=== PATIENT | female | born 1950 | race Caucasian/White ===

== ENCOUNTER 2024-08-03 09:51 | Outpatient (CLI) | payer MEDICARE, SELFPAY ==
--- NOTE | ~2024-08-03 | CT_ITS ---
EXAMINATION: CT sinus wo con DATE: 08/03/2024 10:04 INDICATION: Acute sinusitis sinusitis TECHNIQUE: Computed tomography (CT) of the paranasal sinuses was performed without intravenous contra st. The dose-length product was 409.21 mGy-cm. Automated exposure control and iterative reconstructio n technique were employed. COMPARISON: None FINDINGS: There is no significant mucosal thickening. No air-fluid levels. No mucoperiosteal reaction . There are surgical changes of the ostiomeatal units bilaterally. Rightward nasal septal deviation. Mastoids are pneumatized. IMPRESSION: 1. No significant sinus disease. Reviewed, dictated and finalized at location B.
== END 2024-08-03 09:52 | disposition home or self-care (01) ==
PROVIDERS: PCP Internal Medicine; Visit Provider Otolaryngology
DX: J01.20 Acute ethmoidal sinusitis, unspecified (principal); H05.011 Cellulitis of right orbit
CPT/HCPCS: 70486

== ENCOUNTER 2024-08-19 13:51 | Outpatient (CLI) | payer MEDICARE, SELFPAY ==
--- NOTE | 2024-08-19 14:15 | NEURO_ITS ---
Impression: # Complains of right hand weakness. ? 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 ? # Mildly abnormal Needle/Needle/EMG; Generally decreased strength. ? # Clinical correlation recommended. ?Nerve Conduction Studies Anti Sensory Summary Table ?Stim Site NR Peak (ms) P-T Amp (?V) Site1 Site2 Delta-P (ms) Dist (cm) Eladio (m/s) Right Median Anti Sensory (2-3nd Digit) Wrist ? 3.9 22.9 Wrist 2-3nd Digit 3.9 14.0 36 Wrist ? 4.3 10.4 Wrist 2-3nd Digit 3.9 14.0 36 Right Radial Anti Sensory (Base 1st Digit) Wrist ? 1.8 17.1 Wrist Base 1st Digit 1.8 0.0 Right Ulnar Anti Sensory (5th Digit)??? NO RESPONSE Wrist NR Wrist 5th Digit 14.0 Motor Summary Table ?Stim Site NR Onset (ms) O-P Amp (mV) Site1 Site2 Delta-0 (ms) Dist (cm) Eladio (m/s) Right Median Motor (Abd Poll Brev) Wrist ? 3.7 4.7 Elbow Wrist 4.7 26.0 55 Elbow ? 8.4 4.2 Right Ulnar Motor (Abd Dig Minimi) Wrist ? 3.3 0.8 A Elbow Wrist 8.2 26.0 32 A Elbow ? 11.5 1.0 B Elbow Wrist 5.8 19.0 33 B Elbow ? 9.1 0.7 F Wave Studies ?NR F-Lat (ms) L-R F-Lat (ms) Right Median (Mrkrs) (Abd Poll Brev) ? 29.24 Right Ulnar (Mrkrs) (Abd Dig Min) ? 32.87 EMG ?Side Muscle Nerve Root Ins Act Fibs Amp Dur Recrt Comment Right 1stDorInt Ulnar C8-T1 Nml Nml Decr >12ms Nml Right Ext Indicis Radial (Post Int) C7-8 Nml Nml Nml Nml Nml Right Ext Digitorum Radial (Post Int) C7-8 Nml Nml Nml Nml Nml Right BrachioRad Radial C5-6 Nml Nml Nml Nml +1 Right PronatorTeres Median C6-7 Nml Nml Nml Nml Nml Right Abd Poll Brev Median C8-T1 Nml Nml Nml Nml Nml Right ABD Dig Min Ulnar C8-T1 Nml Nml Decr >12ms Nml Right FlexPolLong Median (Ant Int) C7-8 Nml Nml Nml Nml Nml Right Abd Poll Long Radial (Post Int) C7-8 Nml Nml Nml Nml Nml Right Biceps Musculocut C5-6 Nml Nml Nml Nml +1 Right Triceps Radial C6-7-8 Nml Nml Nml Nml +1 Right Deltoid Axillary C5-6 Nml Nml Nml Nml +1 MTDD
--- OUTSIDE RECORDS SUMMARY | 2024-08-19 14:51 | XMS_ITS | Encounter Summary ---
Author Organization [facility] Address [address] [place] [address] Care Team Providers Care Transfusion Nurse Name Role Phone Adam Wiggins MD Primary Care Provider Reason for Visit * Reason Onset Date Comments Medication Refill 05/01/2011 Encounter Details Date Type Department Care Team (Late st Contact Info) Description 05/01/2011 Refill Central Business Office [address] [place] [address] Mychart, Generic Provider Social History Tobacco Use Types Packs/Day Years Used Date Smoking Tobacco: Never Smokeless Tobacco: Never Alcohol Use Standard Drinks/Week Comments Yes 0 (1 standard drink = 0.6 oz pur e alcohol) Comments No Sex and Gender Information Value Date Recorded Sex Assigned at Not on file 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 Wiggins, when I saw you we agreed I would go to Cymbalta 30 mg. and you gave me samples. However, the pharmacy still has a dose of 60 mg. Could you please order me the 30 mg. tablets? 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
--- OUTSIDE RECORDS SUMMARY | 2024-08-19 14:51 | XMS_ITS | Encounter Summary ---
Author Organization [facility] [employer] Care Team Providers Care Implementation Lead Name Role Phone Adam Wiggins MD Primary Care Provider [phone] David Henriquez MD Unavailable Stas Malin MD Unavailable [phone] Encounter Details Date Type Department Care Team (Latest Contact Info) Description 08/18/2024 Travel Social History Tobacco Use Types Packs/Day Years Used Date Smoking Tobacco: Never Smokeless Tobacco: Never Alcohol Use Standard Drinks/Week Comments Yes 4 (1 standard drink = 0.6 oz pur e alcohol) one glass daily Sexually Active Control Partners Comments Yes Male Comments No Sex and Gender Information Value Date Recorded Sex Assigned at Not on file Legal Sex Female 7:47 PM CDT Gender Identity Not on file Sexual Orientation Not on file documented as of this encounter Plan of Treatment Upcoming Encounters Date Type Department Care Team (Late st Contact Info) Description 08/20/2024 1:15 PM CDT Physical Therapy [facility] at [address] [place] [address] Cristal Hunt PAC [address] [place] [address] [place] [address] Lin Fuller, PT [place] 09/08/2024 9:15 AM CDT Physical [facility] at [address], [address] [place] [address] Cristal Hunt PAC [address] [facility] [place] [address] Lin Fuller, PT [place] Discharge Disposition: Discharged to home or Selfcare 09/10/2024 10:00 AM CDT [facility] [address], [address] [place] [address] Cristal Hunt PAC [address] [facility] [place] [address] Lin Fuller, PT [place] 09/22/2024 1:30 PM CDT [facility] at [address], [address] [place] [address] Cristal Hunt PAC [address] [facility] [place] [address] Lin Fuller, PT [place] 10/01/2024 2:00 PM CDT [facility] at [address], [address] [place] [address] Cristal Hunt PAC [address] [facility] [place] [address] Lin Fuller, PT [place] 10/06/2024 2:15 PM CDT [facility] at [address], [place] [address] [place] [address] Cristal Hunt PAC [address] [facility] [place] [address] Lin Fuller, PT [place] documented as of this encounter Visit Diagnoses Not on filedocumented in this encounter Care Teams Implementation Lead Relationship Specialty Start Date End Date Adam Wiggins MD [address] [place] [address] PCP - General 06/08/15 David Henriquez MD #[address] [address] Consulting Physician Colon and Rectal Surgery 10/09/23 Stas Malin MD [address] [place] [address] Consulting Physician Medical Oncology 06/05/23 documented as of this encounter
--- OUTSIDE RECORDS SUMMARY | 2024-08-19 14:51 | XMS_ITS | Encounter Summary ---
Author Organization [facility] Address [address] [place] [address] [place] [address] Phone Care Team Providers Care Oracle Soa Developer Name Role Phone Adam Wiggins MD Primary Care Provider [phone] David Henriquez MD Unavailable Stas Malin MD Unavailable [phone] Reason for Visit * PT/OT/ST (Routine) - Authorized Specialty Diagnoses / Procedures Referred By Irais calderon Referred To Contact Physical Therapy Diagnoses Trochanteric bursitis of right hip 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 Cristal Hunt, [address] [place] [address] Phone: tel: fax: [facility] at [facility] [address] [facility], [place] [address] [address] Phone: tel: fax: Referral ID Status Reason Start Date Expiration Date V isits Requested Visits Authorized [id number] Authorized 06/16/2024 50 50 Encounter Details Date Type Department Care Team (Latest Contact Info) Description 08/18/2024 1:30 PM CDT Physical Therapy [facility] at [facility] [address], [place] [address] [address] Cristal Hunt, PAC [address] [facility] [place] [address] Noris Fuller, PT [place] Trochanteric bursitis of right hip (Primary Dx); Weakness; Abnormal gait Discharge Disposition: Discharged to home or Selfcare Social History Tobacco Use Types Packs/Day Years [...] on file documented as of this encounter Miscellaneous Notes * Plan of Care - Noris Fuller, PT - 08/18/2024 1:30 PM CDT Physical Therapy VisitReevaluation - Electronically signed by: NORIS FULLER, PT August 18, 2024 Subjective SUBJECTIVE: Patient reports that overall she did pretty good this past week when she did not come in. She had some discomfort but did not start having pain again until yesterday. Reports that she does notice sheis walking better but still limps as she fatigues. States she would like to continue to do more therapy as she is going on a trip in September and will have to do a lot of walking and on uneven ground anddoes not feel comfortable with that . yet. OBJECTIVE Observation: Functional Outcomes/Other Observations: Lower Extremity Functional Scale Watkins: 0- Extreme difficulty or Unable to perform 1- Quite a bit of difficulty 2- Moderate difficulty 3- A little bit of difficulty 4- No difficulty A. Any of your usual work, household, or school activities Score: 3 B. Your usual hobbies, recreational, or sporting activities Score: 3 C. Getting in or out of the tub Score: 4 D. Walking between rooms Score: 4 E. Putting on your shoes or socks Score: 4 F. Squatting Score: 2 G. Lifting an object, like a bag of groceries from the floor Score: 3 H. Performing light activities around your home Score: 3 I. Performing heavy activities around your home Score: 0 J. Getting into or out of a car Score: 3 K. Walking 2 blocks Score: 2 L. Walking a mile Score: 0 M. Going up or down 10 stairs (about 1 flight) Score: 2 N. Standing for 1 hour Score: 0 O. Sitting for 1 hour Score: 4 P. Running on even ground Score: 0 Q. Running on uneven ground Score: 0 R. Making sharp turns while running fast Score: 0 S. Hopping Score: 0 T. Rolling over in bed Score: 3 Total Score: 40/80 Interpretation of scores: The lower the score the greater the disability. The minimal detectable change is 9 scale points. The minimally clinically important difference is 9 scale points. Percent of maximal function = (LEFS score) / 80 * 100. Gait: Patient ambulates with decreased step length and decreased hip extension. She is able wto ambulate with minimal trunk lean, however as she fatigues, she does increase her compensation Hip/Knee: Strength: All Strength measurements out of 5 unless otherwise noted. Hip Extension: Left: 4 Right: 4 Hip Abduction: Left: 4- Right: 3+ Knee Flexion: Left: 5 Right: 5 Knee Extension: Left: 5 Right: 4+ TREATMENT: Refer to [facility] Rehab Therapy flowsheet for minutes. Home Exercises distributed via handout. PeriGen information: [id number] Area being treated: glut minimus Number of sites: 2 Patient position: sidelying Needle size and number: .[id number] Patient response or change in symptom behavior: ltr and decreased pain Any adverse response: None verbalized by patient or noted on observation Area being treated: piriformis Number of sites: 1 Patient position: side lying Needle size and number: .2x50mm Patient response or change in symptom behavior: ltr Any adverse response: none noted Area being treated: TFL Number of sites: 1 Patient position: side lying Needle size and number: .[id number] Patient response or change in symptom behavior: strong ltr and decreased pain Any adverse response: achy following treatment: none Patient was seen for re-assessment this date. Objective measures were taken and reviewed with patient. 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 Therapeutic exercies: Hamstring and hip flexor stretch x 3 min bilaterally Single limb wall pilates Sit to stands with one leg in front of the other to activate unilateral gluts x 10 reps bilaterally Neuro reeducation: HELD this date Marching shoulder extension x 10 reps 3x3 with black tubing Semi tandem palloff press x 10 reps each foot and each direction with black tubing and cueing Rocker board ap and ml x 3 min each Wall pilates single limb bridge x 10 reps bilaterally Interventions provided this session: manual therapy, neuro reeducation Therapist provided Education and Skilled therapy by identifying substitutions during exercises withcorrection of form as well as identifying and releasing of soft tissue restrictions. . ASSESSMENT: Reporting Period: 06/30/2024 to 08/18/2024 Kellee Cerna is a 74 y.o. patient who is presenting to Physical Therapy for reassessment today's date - 08/18/2024: Improvements noted since initiating this episode of care include: decreased pain with walking and sleeping, improved strength in her hips, improved gait pattern and tolerance and overall improved activity tolerance. She continues to have weakness in her gluts and core which as she fatigues continues to lead to pain and gait deviations. 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 Deficits noted include impairments of decreased strength, increased pain, postural faults, abnormalmuscle tone and gait deviations which contribute to the following areas of functional restriction or limitation: difficulty going up and down steps, walking on even ground for sustained distances anduneven ground for short distances, getting in and out of a car and doing more challenging householdchores. Rehab potential for meeting the goals listed below is good. Preferred Language: [place] See goals for specific status and refer to objective data from today's date and initial evaluation for comparative measures. All charges entered today are appropriate and separate from each other. PLAN Goals to be achieved by discharge. Patient will demonstrate the followin. Patient will be independent with a home program for bilateral hip strengthening. -MET 07/15/24 kb 2. Gluteus medius strength will be 4+ on the left and 4- on the right for less compensating Trendelenburg gait pattern.PROGRESS08/18/24 DCF 3. Patient will ascend and descend a flight of stairs with one hand railing with reciprocal patternwithout limping. 4. Pain in her right trochanteric area of right hip will generally be rated as 3/10 or less when rising from a chair to beginning ambulation. MET 08/17/24 DCF 5. Patient will score 49/80 or higher on the LE Functional Scale patient- reported outcomes measure.PROGRESS 08/18/24 DCF This patient will likely be seen 2x/week for a total of 20 visits from the date of initial evaluation Precautions: 02/19/24 right THR anterior approach, no longer has any precautions. documented in this encounter Plan of Treatment Upcoming Encounters Date Type Department Care Team (Late st Contact Info) Description 08/20/2024 1:15 PM CDT Physical Therapy [facility] at [facility] [address] [facility], [address] [place] [address] Cristal Hunt PAC [address] [facility] [place] [address] Noris Fuller, PT [place] 09/08/2024 9:15 AM CDT Physical Therapy [facility] at [facility] [address], [address] [place] [address] Cristal Hunt PAC [address] [facility] [place] [address] Noris Fuller, PT [place] Discharge Disposition: Discharged to home or Selfcare 09/10/2024 10:00 AM CDT Physical Therapy [facility] at [facility] [address] [facility], [address] [place] [address] Cristal Hunt PAC [address] [facility] [place] [address] Noris Fuller, PT [place] 09/22/2024 1:30 PM CDT Physical Therapy [facility] at [facility] [address], [address] [place] [address] Cristal Hunt, PAC [address] [facility] [place] [address] Noris Fuller, PT [place] 10/01/2024 2:00 PM CDT Physical Therapy [facility] at [facility] [address], [address] [place] [address] Cristal Hunt PAC [address] [facility] [address] Noris Fuller, PT [place] 10/06/2024 2:15 PM CDT Physical Therapy [facility] at [facility] [address] [facility], [address] [place] [address] Cristal Hunt PAC [address] [facility] [place] [address] Noris Fuller, PT [place] documented as of this encounter Visit Diagnoses Diagnosis Trochanteric bursitis of right hip- Primary Enthesopathy of hip region Weakness Other malaise and fatigue Abnormal gait Abnormality of gait documented in this encounter Care Teams Oracle Soa Developer Relationship Specialty Start Date End Date Adam Wiggins MD [address] [place] [address] PCP - General 06/08/15 David Henriquez MD #2 [facility] [address] [place] [address] Consulting Physician Colon and Rectal Surgery 10/09/23 Stas Malin MD [address] [place] [address] Consulting Physician Medical Oncology 06/05/23 documented as of this encounter
--- OUTSIDE RECORDS SUMMARY | 2024-08-19 14:51 | XMS_ITS | Continuity of Care Document ---
Author Organization [facility] Address [address] [place] [address] [address] [place] [address] Phone Care Team Providers Care Ironworker Machine Operator Name Role Phone Duane BENAVIDEZ, Deni Unavailable Unavaila ble Procedures Procedure Date POSTOP FOLLOW-UP VISIT CATARACT SURG W/IOL, 1 STAGE OFFICE/OUTPATIENT VISIT, [facility] OPHTHALMIC BIOMETRY OPHTHALMIC BIOMETRY Advance Directives Directive Yes / No Effective Date File Name No Information Encounters Encounter Description Practice Location Reason(s) For Visit Diagnoses Date Provider Providers Copied on Encounter Ophthalmology [facility], [address] [place] [address], [id number], tel:[phone] Oph Consult [facility] No Information 9 Joaoishtanna Deni. [address], [address], [place], [place], [id number], [place]. tel:[phone] Referring Provider: [facility], [address] [place] [address], [id number], tel:[phone] [facility] No Information 9 Joaoishnasyane Deni. [address], [address], [place], [place], [id number], [place]. tel:[phone] Referring Provider: Deni adamson, [address], [place], [address] . tel:[phone] OFFICE/OUTPAT IENT VISIT, [facility], [address], [place], [place], [id number], [place] tel:[phone] Oph Consult IZZY Rosenthal No Information 9 Duane Lozanohil. [address] [facility] [address] , [address], [place], [place], [id number], [place]. tel:[phone] Referring Provider: Hieu Darnell, [address] [facility] [address], [place], [address]. tel:[phone] Family History Family Member Type Diagnosis Age At Onset No Information Payers Payer name Insurance type Covered green party ID Authoriza tion(s) No Information Social History Type Description Quantity Date Captured Comments Sex Female Smoking Status No Information Chief Complaint And Reason For Visit No Information Reason For Referral Reason For Referral No Information History Of Present Illness Encounter Date Complaint History Of Prese nt Illness No Information Functional Status Date Functional Assessmen t No Information Instructions Date Instruction Additional Infor mation No Information Assessments Type Assessment Date No Information Patient Care Teams Name Effective Dates (start - stop) Status Members No Information
--- OUTSIDE RECORDS SUMMARY | 2024-08-19 14:51 | XMS_ITS | Encounter Summary ---
Author Organization [facility] Address [address] [place] [address] [place] [address] Phone Care Team Providers Care Tool Room Supervisor Name Role Phone Adam Wiggins MD Primary Care Provider [phone] David Henriquez MD Unavailable Stas Malin MD Unavailable [phone] Encounter Details Date Type Department Care Team (Late st Contact Info) Description 08/19/2024 Plan of Care [facility] [address], [address] [place] [address] Social History Tobacco Use Types Packs/Day Years [...] Description 08/20/2024 1:15 PM CDT Physical [facility] [address], [address] [place] [address] MarileeCristal melendez PAC [address] [facility] [place] [address] Lin Fuller, PT [place] 09/08/2024 9:15 AM CDT Physical [facility] [address] [facility], [place] [address] [place] [address] Cristal Hunt PAC [address] [facility] [place] [address] Lin Fuller, PT [place] Discharge Disposition: Discharged to home or Selfcare 09/10/2024 10:00 AM CDT [facility] [address], [place] [address] [place] [address] Cristal Hunt PAC [address] [facility] [place] [address] Lin Fuller, PT [place] 09/22/2024 1:30 PM CDT [facility] [address], [place] [address] [place] [address] Cristal Hunt PAC [address] [facility] [place] [address] Lin Fuller, PT [place] 10/01/2024 2:00 PM CDT [facility] [address], [address] [place] [address] Cristal Hunt PAC [address] [facility] [place] [address] Lin Fuller, PT [place] 10/06/2024 2:15 PM CDT [facility] [place] [address], [address] [place] [address] Cristal Hunt, PAC [address] [facility] [place] [address] Lin Fuller, PT [place] documented as of this encounter Visit Diagnoses Not on filedocumented in this encounter Care Teams Tool Room Supervisor Relationship Specialty Start Date End Date Adam Wiggins MD [address] [place] [address] PCP - General 06/08/15 David Henriquez MD #2 [facility] [address] [place] [address] Consulting Physician Colon and Rectal Surgery 10/09/23 Stas Malin MD [address] [place] [address] Consulting Physician Medical Oncology 06/05/23 documented as of this encounter
--- OUTSIDE RECORDS SUMMARY | 2024-08-19 14:52 | XMS_ITS | Clinical Summary ---
Author Organization [facility] Address [address], [place] [address] [place] [address] Phone Care Team Providers Care Assistant Technician Name Role Phone Adam Wiggins MD Primary Care Provider David Henriquez MD Unavailable Stas Malin MD Unavailable [phone] Allergies Active Allergy Reactions Criticality Noted Date Comments Nebivolol Diarrhea 01/16/2019 Nickel Rash Medium 08/11/2013 RASH --DR. LE IS AWARE RASH --DR. LE IS AWARE RASH --DR. LE IS AWARE RASH --DR. LE IS AWARE Penicillins Hives Medium 02/09/2019 Medications amLODIPine (NORVASC) 2.5 MG Tablet TAKE 1 TABLET (2.5 MG) BY MOUTH DAILY AT BEDTIME. 3 01/16/2019 Active DULoxetine (CYMBALTA) [address] Particles Take 60 mg by mouth daily. 10/01/2017 Active fluticasone (FLONASE) 50 MCG/ACT Suspension 12/10/2017 Active gabapentin (NEURONTIN) 300 MG Capsule TAKE 1 CAPSULE (300 MG) BY MOUTH DAILY AT BEDTIME TOTAL 1500 MG, IE 1200 +300 MG. 3 11/29/2018 Active glycopyrrolate (ROBINUL) 2 MG Tablet Take by mouth. 03/18/2017 Active Mirabegron ER 50 MG TABLET SR 24 HR 10/01/2017 Active montelukast (SINGULAIR) 10 MG Tablet Take 10 mg by mouth daily. 9 11/08/2018 Active Olmesartan Medoxomil 40 MG Tablet Take 40 mg by mouth daily. 3 12/28/2018 Active Probiotic Product (ACIDOPHILUS/GO AT MILK) Capsule Take 1 Tablet by mouth daily. Active temazepam (RESTORIL) 30 MG Capsule nightly as needed. 1 12/05/2018 Active traMADol (ULTRAM) 50 MG Tablet TAKE 1 TABLET (50 MG) BY MOUTH EVERY 6 HOURS NEEDED FOR PAIN. 2 12/04/2018 Active Multiple Vitamins-Minera ls (EYE-VITES) Tablet Take 1 Tab by mouth daily. Active buPROPion SR (WELLBUTRIN SR) 100 MG TABLET SR 12 HR Take 100 mg by mouth 2 times daily. Active SYNTHROID 137 MCG Tablet 05/04/2019 Active famotidine (PEPCID) 20 MG Tablet TAKE 1 TABLET BY MOUTH TWICE A DAY 07/06/2021 Active pravastatin (PRAVACHOL) 10 MG Tablet TAKE 1 TABLET BY MOUTH EVERYDAY AT BEDTIME 07/06/2021 Active VITAMIN D PO Take by mouth three times a week. Active Ferrous Sulfate (Iron) 325 (65 Fe) MG Tablet Take 1 tablet by mouth once daily 30 Tablet 1 07/05/2022 Active cyclobenzaprine (FLEXERIL) 10 MG Tablet Take 10 mg by mouth 3 times daily. Active HYDROcodone-claribel taminophen (NORCO) 5-325 MG Tablet Take 1 Tablet by mouth. 08/19/2023 Active omeprazole (PriLOSEC) 40 MG CAPSULE DELAYED RELEASE TAKE 1 CAPSULE EVERY DAY (SUBSTITUTED FOR PRILOSEC) 01/27/2024 Active ondansetron (ZOFRAN) 8 MG Tablet Take 8 mg by mouth. 02/20/2024 Active gabapentin (NEURONTIN) 400 MG Capsule take 1 capsule by mouth 4 times daily Active aspirin EC (ECOTRIN) 325 MG Tablet Delayed Response Take 325 mg by mouth. 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 022 Essential hypertension 09/04/2021 Acute kidney injury 09/04/2021 Depression, major, recurrent, mild 02/20/2019 Encounters Date Type Department Care Team Description 08/19/2024 Plan of Care Documentation [facility] [address], [place] [address] [place] [address] 08/18/2024 1:30 PM CDT Physical Therapy [facility] [address] [facility], [place] [address] [place] [address] Cristal Hunt PAC Fisher, Lin C, PT Trochanteric bursitis of right hip (Primary Dx); Weakness; Abnormal gait Discharge Disposition: Discharged to home or Selfcare 08/18/2024 Travel 08/13/2024 Telephone [facility] [address] [facility], [address] [place] [address] Amberly Parish, PT Appointment (Called to cancel PT today) 08/06/2024 10:45 AM CDT Physical Therapy [facility] [address] [facility], [address] [place] [address] Cristal Hunt PAC Fisher, Debra C, PT Discharge Disposition: Discharged to home or Selfcare 08/06/2024 Travel 07/31/2024 1:15 PM CDT [facility] [address], [place] [address] [place] [address] Cristal Hunt PAC Fisher, Debra C, PT Discharge Disposition: Discharged to home or Selfcare 07/29/2024 10:45 AM CDT Physical [facility] [address], [place] [address] [place] [address] Cristal Hunt PAC Fisher, Debra C, PT Discharge Disposition: Discharged to home or Selfcare 07/29/2024 Travel 07/23/2024 10:45 AM CDT Physical Therapy [facility] [address], [place] [address] [phone] Cristal Hunt PAC Fisher, Debra C, PT Discharge Disposition: Discharged to home or Selfcare 07/20/2024 10:45 AM CDT Physical Therapy [facility] [address], [place] [address] [address] Cristal Hunt PAC Fisher, Debra C, PT Discharge Disposition: Discharged to home or Selfcare 07/20/2024 Travel 07/15/2024 9:15 AM CDT Physical Therapy [facility] [address], [place] [address] [phone] Cristal Hunt PAC Bogowith, Kelly A, PT Trochanteric bursitis of right hip (Primary Dx); 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 Discharge Disposition: Discharged to home or Selfcare 07/13/2024 Telephone [facility] [address] [facility], [place] [address] [phone] Amberly Parish, PT Appointment (Called to cancel PT today) 07/12/2024 11:29 AM CDT - 07/12/2024 1:34 PM CDT [facility] [address] [place] [address] Siobhan Jimenez MD Gastroenteritis Discharge Disposition: Discharged to home or Selfcare 07/12/2024 10:40 AM CDT Urgent Care Visit [facility] [place] [address] [place] [address] Federico Lu APRN, [employer] Lower abdominal pain (Primary Dx) Discharge Disposition: Discharged to home or Selfcare 07/12/2024 Travel 07/08/2024 2:45 PM CDT Physical [facility] [address], [address] [place] [address] Cristal Hunt PAC Bogowith, Kelly A, PT Trochanteric bursitis of right hip (Primary Dx); 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 Discharge Disposition: Discharged to home or Selfcare 07/08/2024 Travel 07/03/2024 2:30 PM CDT Physical Therapy [facility] [address], [address] [address] [place] [address] Cristal Hunt PAC Bogowith, Kelly A, PT Discharge Disposition: Discharged to home or Selfcare 06/30/2024 9:15 AM CDT Physical Therapy [facility] [address], [address] [place] [address] Cristal Hunt PAC Bogowith, Kelly A, PT Trochanteric bursitis of right hip; 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 Discharge Disposition: Discharged to home or Selfcare 06/30/2024 Plan of Care Documentation [facility] [address], [address] [place] [address] 06/30/2024 Travel 06/16/2024 Transcribe Orders [facility] [address] [place] [phone] Cristal Hunt PAC Trochanteric bursitis of right hip (Primary Dx); 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 from Last 3 Months Immunizations Immunization Administration Dates Next Due Influenza, High-dose, Quadrivalent 12/14/2022,,12/14/2020 Influenza, high-dose, trivalent, PF 12/18/2023 Family History Medical History Relation Name Comments No Known Problems Daughter 1 Arthritis Daughter 2 Polycystic Ovarian Syndrome Daughter 3 Cancer Father colon and laryn x Colon Cancer Father Diabetes Father Heart Attack Father Heart Disease Father Hypertension Father No Known Problems Maternal Grandfather Cancer Maternal Grandmother Diabetes Maternal Grandmother Uterine Cancer Maternal Grandmother Coronary Artery Disease Mother Heart Disease Mother Hypertension Mother No Known Problems Paternal Grandfather No Known Problems Paternal Grandmother Relation Name Status Comments Daughter 1 Alive Daughter 2 Alive Daughter 3 Alive Father Maternal Grandfather Maternal Grandmother Mother Paternal Grandfather Paternal Grandmother Social History Tobacco Use Types Packs/Day Years Used Date Smoking Tobacco: Never Smokeless Tobacco: Never Tobacco Cessation:Counseling Given: Not Answered Alcohol Use Standard Drinks/Week Comments Yes 4 (1 standard drink = 0.6 oz pur e alcohol) one glass daily Sexually Active Control Partners Comments Yes Male Comments No Sex and Gender Information Value Date Recorded Sex Assigned at Not on file Legal Sex Female 7:47 PM CDT Gender Identity Not on file Sexual Orientation Not on file Last Filed Vital Signs Vital Sign Reading Time Taken Comments Blood Pressure 144/89 07/12/2024 1:15 PM CDT Pulse 72 07/12/2024 1:15 PM CDT Temperature 36.5 C (97.7 F) 07/12/2024 11:34 AM CDT Respiratory Rate 16 07/12/2024 1:15 PM CDT Oxygen Saturation 99% 07/12/2024 1:15 PM CDT Inhaled Oxygen Concentration - - Weight 82.8 kg (182 lb 8.7 oz) 07/12/2024 11:34 AM CDT Height 149.9 cm (4' 11 ) 07/12/2024 11:34 AM CDT Body Mass Index 36.87 07/12/2024 11:34 AM CDT Plan of Treatment Upcoming Encounters Date Type Department Care Team (Late st Contact Info) Description 08/20/2024 1:15 PM CDT [facility] [address], [place] [address] [place] [phone] Cristal Hunt PAC [address] [place] [address] [place] [address] Lin Fuller PT [place] 09/08/2024 9:15 AM CDT Physical Therapy [facility] [address], [place] [address] [place] [address] Cristal Hunt PAC [address] [place] [address] Lin Fuller, PT [place] Discharge Disposition: Discharged to home or Selfcare 09/10/2024 10:00 AM CDT Physical Therapy [facility] [address] [facility], [place] [address] [place] [address] Cristal Hunt PAC [address] [place] [address] [place] [address] Lin Fuller, PT [place] 09/22/2024 1:30 PM CDT Physical Therapy [facility] [address] [facility], [address] [place] [address] Cristal Hunt PAC [address] [place] [address] iLn Fuller, PT [place] 10/01/2024 2:00 PM CDT Physical Therapy [facility] [address] [facility], [place] [address] [place] [address] Cristal Hunt PAC [address] [place] [address] Lin Fuller, PT [place] 10/06/2024 2:15 PM CDT Physical Therapy [facility] [address] [facility], [place] [address] [place] [address] Cristal Hunt PAC [address] [place] [address] Lin Fuller, PT [place] Health Maintenance Due Date Last Done Comments Hepatitis C Virus (HCV) Screening 1950 Zoster Immunization (3 of 3) 02/11/2020 12/17/2019, 04/03/2012 DEXA Bone Density 02/21/2020 02/20/2018, , 06/03/2015, Additional history exists SARS-COV-2 Immunization ( season) 2024 12/23/2023, 12/22/2023, 01/10/2023, Additional history exists Pneumococcal Immunization (50+ years) Completed 12/26/2018, 06/14/2015, 03/03/2014, Additional history exists Pneumococcal Immunization Combined Discontinued 12/26/2018, 06/14/2015, 03/03/2014, Additional history exists DTaP/Tdap/Td Immunization Discontinued 05/21/2022, 10/2010 TdaP Immunization Completed 05/21/2022, 03/28/2011 Respiratory Syncytial Virus (RSV) Immunization (Adult) Completed 01/01/2023, 12/17/2022 Mammogram Discontinued 01/09/2023, 05/24, 06/15/2019, Additional history exists Influenza Immunization Completed , 12/14/2022, 12/12/2021, Additional history exists Colonoscopy High Risk Discontinued 05/13/2024 , 03/16/2019, 04/24/2011 Colonoscopy Discontinued 05/13/2024, 02/21, 04/24/2011 Colorectal Cancer Screening Discontinued Cologuard Discontinued Hepatitis B Immunization Aged Out No longer eligible based on patient's age to complete this topic Immunochemical Fecal Occult Blood Discontinued Meningococcal Immunization (ACWY) Aged Out No longer eligible based on patient's age to complete this topic Rotavirus Immunization Aged Out No lo nger eligible based on patient's age to complete this topic Procedures Procedure Name Priority Date/Time Associated Diagnosis Comments CT ABDOMEN PELVIS W/O CONTRAST Stat with Interpretation 07/12/2024 12:32 PM CDT CBC WITH AUTO DIFFERENTIAL STAT 07/12/2024 11:55 AM CDT URINALYSIS REFLEX IF INDICATED BY ABNORMAL RESULTS STAT 07/12/2024 11:55 AM CDT CMP (COMPREHENSIVE METABOLIC PANEL) STAT 07/12/2024 11:55 AM CDT COMPLETE BLOOD COUNT (CBC) WITH DIFF STAT 07/12/2024 11:55 AM CDT [facility] SCREENING BILATERAL DIGITAL W CAD W LEYLA Routine 01/09/2023 10:21 AM CDT Visit for screening mammogram [facility] BONE DENSITOMETRY AXIAL SKELETON Routine 02/20/2018 3:21 PM CDT Menopause COLONOSCOPY Routine 04/24/2011 from Last 3 Months or Most Recently Relevant to Health Maintenance Results * CT ABDOMEN PELVIS W/O CONTRAST (07/12/2024 12:32 PM CDT) Anatomical Region Laterality Modality Abdomen N/A Computed Tomogra phy 07/12/2024 1:11 PM CDT Impressions 07/12/2024 1:13 PM CDT IMPRESSION: Examination is limited by motion artifact and streak artifact from a right hip arthroplasty. 1. Small hiatal hernia. Mild patulous distal esophagus. Recommend correlation with dysphagia and epigastric pain. Follow-up upper endoscopy may be performed for further evaluation if clinically indicated. 2. Partially distended gallbladder. Indeterminate haziness along the gallbladder is favored to be due to motion artifact. Inflammation is thought to be much less likely. Recommend correlation with right upper quadrant pain and tenderness on examination. Follow-up right upper quadrant ultrasound may be performed further evaluation if clinically indicated. 3. Additional findings as above. Narrative 07/12/2024 1:13 PM CDT EXAM DESCRIPTION: CT ABDOMEN PELVIS W/O CONTRAST REASON FOR STUDY: Mid abdominal pain, diarrhea x2 days. History of colitis. TECHNIQUE: CT scan of the abdomen and pelvis performed without intravenous and without oral contrast using helical scanning technique. Reconstructed coronal and sagittal MPR images reviewed. All images stored on PACS. Automated exposure control was used as a dose optimization technique for this examination. COMPARISON: 07/20/2013 FINDINGS: The sensitivity for detection of visceral lesions is diminished without the use of intravenous contrast. LOWER CHEST: No significant pulmonary abnormalities. No effusion. LIVER: The liver is normal in size. No definite liver lesion is seen. GALLBLADDER: The gallbladder is partially distended. Haziness along the gallbladder wall is favored to be due to motion artifact. No gross pericholecystic fluid to suggest acute cholecystitis. BILE DUCTS: No intrahepatic or extrahepatic ductal dilatation. SPLEEN: Normal size. No focal lesions. PANCREAS: Normal in size. No significant peripancreatic stranding or main ductal dilatation. ADRENALS: Normal. KIDNEYS/URINARY TRACT: The kidneys are normal in size. Prominent right renal pelvis without overt hydronephrosis. Mild perinephric stranding, likely represents scarring. No stone is seen. Left renal cyst is noted. The right pelvis is obscured by an arthroplasty. The urinary bladder appears to be partially distended without substantial thickening or stranding. GI: Evaluation bowel is limited by motion. Scattered diverticular seen without CT evidence of acute diverticulitis. A partially obscured appendix appears to be nondilated. Terminal ileum appears normal. Some pseudo feces is seen within the small bowel which appears nondilated and without evidence of enteritis or obstruction. A small hiatal hernia is seen. The distal esophagus is patulous. The stomach is largely decompressed. PERITONEUM: No free air. No ascites is seen. No organized drainable fluid collection. No mesenteric lymphadenopathy. No significant hernia. RETROPERITONEUM: No retroperitoneal or inguinal lymphadenopathy. REPRODUCTIVE: The uterus is absent. Ovaries appear to be present. VASCULATURE: No abdominal aortic aneurysm. MUSCULOSKELETAL: Right hip arthroplasty. Moderate lumbar degenerative disc disease. OTHER: No other abnormality. THIS IS AN ELECTRONICALLY VERIFIED FINAL REPORT 07/12/2024 1:11 PM - Electronically signed by Jimmy Perez M.D. AG: NINA Report ID: [id number] Reading Location: [id number] Procedure Note Jimmy Perez MD - 07/12/2024 EXAM DESCRIPTION: CT ABDOMEN PELVIS W/O CONTRAST REASON FOR STUDY: Mid abdominal pain, diarrhea x2 days. History of colitis. TECHNIQUE: CT scan of the abdomen and pelvis performed without intravenous and without oral contrast using helical scanning technique. Reconstructed coronal and sagittal MPR images reviewed. All images stored on PACS. Automated exposure control was used as a dose optimization technique for this examination. COMPARISON: 07/20/2013 FINDINGS: The sensitivity for detection of visceral lesions is diminished without the use of intravenous contrast. LOWER CHEST: No significant pulmonary abnormalities. No effusion. LIVER: The liver is normal in size. No definite liver lesion is seen. GALLBLADDER: The gallbladder is partially distended. Haziness along the gallbladder wall is favored to be due to motion artifact. No gross pericholecystic fluid to suggest acute cholecystitis. BILE DUCTS: No intrahepatic or extrahepatic ductal dilatation. SPLEEN: Normal size. No focal lesions. PANCREAS: Normal in size. No significant peripancreatic stranding or main ductal dilatation. ADRENALS: Normal. KIDNEYS/URINARY TRACT: The kidneys are normal in size. Prominent right renal pelvis without overt hydronephrosis. Mild perinephric stranding, likely represents scarring. No stone is seen. Left renal cyst is noted. The right pelvis is obscured by an arthroplasty. The urinary bladder appears to be partially distended without substantial thickening or stranding. GI: Evaluation bowel is limited by motion. Scattered diverticular seen without CT evidence of acute diverticulitis. A partially obscured appendix appears to be nondilated. Terminal ileum appears normal. Some pseudo feces is seen within the small bowel which appears nondilated and without evidence of enteritis or obstruction. A small hiatal hernia is seen. The distal esophagus is patulous. The stomach is largely decompressed. PERITONEUM: No free air. No ascites is seen. No organized drainable fluid collection. No mesenteric lymphadenopathy. No significant hernia. RETROPERITONEUM: No retroperitoneal or inguinal lymphadenopathy. REPRODUCTIVE: The uterus is absent. Ovaries appear to be present. VASCULATURE: No abdominal aortic aneurysm. MUSCULOSKELETAL: Right hip arthroplasty. Moderate lumbar degenerative disc disease. OTHER: No other abnormality. THIS IS AN ELECTRONICALLY VERIFIED FINAL REPORT 07/12/2024 1:11 PM - Electronically signed by Jimmy Perez M.D. AG: NINA Report ID: [id number] Reading Location: [id number] IMPRESSION: Examination is limited by motion artifact and streak artifact from a right hip arthroplasty. 1. Small hiatal hernia. Mild patulous distal esophagus. Recommend correlation with dysphagia and epigastric pain. Follow-up upper endoscopy may be performed for further evaluation if clinically indicated. 2. Partially distended gallbladder. Indeterminate haziness along the gallbladder is favored to be due to motion artifact. Inflammation is thought to be much less likely. Recommend correlation with right upper quadrant pain and tenderness on examination. Follow-up right upper quadrant ultrasound may be performed further evaluation if clinically indicated. 3. Additional findings as above. Siobhan Jimenez MD IMG CT ORDERABLES Final Resul t * URINALYSIS REFLEX IF INDICATED BY ABNORMAL RESULTS (07/12/2024 11:55 AM CDT) SPECIFIC GRAVITY 1.010 1.003 - 1.030 07/12/2024 12:24 PM CDT [facility] URINE PH 6.0 5.0 - 9.0 07/12/2024 12:24 PM CDT [facility] WBC ESTERASE Negative Negative 07/12/2024 12:24 PM CDT [facility] NITRITE Negative Negative 07/12/2024 12:24 PM CDT [facility] PROTEIN, RANDOM URINE Negative Negative 07/12/2024 12:24 PM CDT [facility] URINE GLUCOSE, QUAL Negative Negative 07/12/2024 12:24 PM CDT [facility] URINE KETONES Negative Negative 07/12/2024 12:24 PM CDT [facility] UROBILINOGEN Normal Normal mg/dL 07/12/2024 12:24 PM CDT [facility] URINE BLOOD Negative Negative mariano/ul 07/12/2024 12:24 PM CDT [facility] URINALYSIS COLOR Yellow 07/13/19 12:24 PM CDT [facility] URINALYSIS CLARITY Clear 07/12/2024 12:24 PM CDT [facility] Urine URINE SPECIMEN OBTAINED BY CLEAN CATCH PROCEDURE / Unknown Non-Phlebotomy Collection / Unknown 07/12/2024 11:55 AM CDT 07/12/2024 12:18 PM CDT us Siobhan Jimenez MD URINE ORDERABLES Final Result [facility] [place] [address] * CBC with Auto Differential (07/12/2024 11:55 AM CDT) WBC 9.76 4.00 - 12.00 10(3)/mcL 07/12/2024 12:21 PM CDT [facility] RBC 4.24 3.80 - 5.30 10(6)/mcL 07/12/2024 12:21 PM CDT [facility] HEMOGLOBIN (HGB) 12.4 12.0 - 15.8 g/dL 07/12/2024 12:21 PM CDT [facility] HEMATOCRIT (HCT) 37.7 36.0 - 47.0 % 07/12/2024 12:21 PM CDT [facility] MCV 88.9 82.0 - 96.0 fL 07/12/2024 12:21 PM CDT [facility] MCH 29.2 26.0 - 34.0 pg 07/12/2024 12:21 PM CDT [facility] MCHC 32.9 31.0 - 36.0 g/dL 07/12/2024 12:21 PM CDT [facility] PLATELET COUNT 369 140 - 440 10(3)/mcL 07/12/2024 12:21 PM CDT [facility] RDW 13.0 11.8 - 15.5 % 07/12/2024 12:21 PM CDT [facility] MPV 11.0 9.7 - 12.4 fL 07/12/2024 12:21 PM CDT [facility] NEUTROPHILS 66.9 47.0 - 73.0 % 07/12/2024 12:21 PM CDT [facility] LYMPHOCYTES 22.4 18.0 - 42.0 % 07/12/2024 12:21 PM CDT [facility] MONOCYTES 7.4 4.0 - 12.0 % 07/12/2024 12:21 PM CDT [facility] EOSINOPHILS 2.7 0.0 - 5.0 % 07/12/2024 12:21 PM CDT [facility] BASOPHILS 0.6 0.0 - 1.0 % 07/12/2024 12:21 PM CDT [facility] ABSOLUTE NEUTROPHILS 6.53 1.60 - 7.70 10(3)/mcL 07/12/2024 12:21 PM CDT [facility] ABSOLUTE LYMPHOCYTES 2.19 1.30 - 3.20 10(3)/mcL 07/12/2024 12:21 PM CDT [facility] ABSOLUTE MONOCYTES 0.72 0.20 - 1.00 10(3)/mcL 07/12/2024 12:21 PM CDT [facility] ABSOLUTE EOSINOPHIL 0.26 0.00 - 0.40 10(3)/mcL 07/12/2024 12:21 PM CDT [facility] ABSOLUTE BASOPHILS 0.06 0.00 - 0.10 10(3)/[facility] 07/12/2024 12:21 PM CDT [facility] NRBC PER 100 WBC 0 07/13/19 25 12:21 PM CDT [facility] Blood Venipuncture / Unknown 07/12/2024 11:55 AM CDT 07/12/2024 12:18 PM CDT us Siobhan Jimenez MD HEMATOLOGY ORDERABLES Final R esult [facility] [place] [address] * (ABNORMAL) Comprehensive Metabolic Panel (Cmp) [id number] (07/12/2024 11:55 AM CDT) SODIUM 134(L) 136 - 145 mmol/L 07/12/2024 12:48 PM CDT [facility] POTASSIUM 4.5 3.5 - 5.1 mmol/L 07/12/2024 12:48 PM CDT [facility] CHLORIDE 103 98 - 107 mmol/L 07/12/2024 12:48 PM CDT [facility] CO2, VENOUS 23 22 - 30 mmol/L 07/12/2024 12:48 PM CDT [facility] ANION GAP 12.5 <18.0 mmol/L 07/12/2024 12:48 PM CDT [facility] GLUCOSE 91 70 - 99 mg/dL 07/12/2024 12:48 PM CDT [facility] BUN 15 10 - 20 mg/dL 07/12/2024 12:48 PM CDT [facility] CREATININE, BLOOD 0.81 0.60 - 1.00 mg/dL 07/12/2024 12:48 PM CDT [facility] BUN/CREATININE RATIO 19 12 - 20 ratio 07/12/2024 12:48 PM CDT [facility] TOTAL PROTEIN 7.7 6.0 - 8.0 g/dL 07/12/2024 12:48 PM CDT [facility] ALBUMIN 4.4 3.5 - 5.0 g/dL 07/12/2024 12:48 PM CDT [facility] A/G RATIO 1.3 1.0 - 2.2 07/12/2024 12:48 PM CDT [facility] CALCIUM 9.6 8.7 - 10.5 mg/dL 07/12/2024 12:48 PM CDT [facility] T BILI 0.4 0.2 - 1.2 mg/dL 07/12/2024 12:48 PM CDT [facility] SGOT (AST) 31 <43 U/L 07/12/2024 12:48 PM CDT [facility] SGPT (ALT) 24 <56 U/L 07/12/2024 12:48 PM CDT [facility] ALKALINE PHOSPHATASE 83 40 - 150 U/L 07/12/2024 12:48 PM CDT [facility] GFR, ESTIMATED >60 >=60 07/12/2024 12:48 PM CDT [facility] Comment: Creatinine Clearance is the preferred criteria for selecting drug dose adjustments in renally impaired patients. The GFR is provided as additional pertinent clinical information. GFR is reported in mL/min/1.73 sq m. Calculation based on the Chronic Kidney Disease Epidemiology Collaboration (CKD- EPI) equation refit without adjustment for race. GFR, EST. >60 >=60 025 12:48 PM CDT [facility] GFR, EST. NONAFRICAN >60 >=60 07/12/2024 12:48 PM CDT [facility] Blood Venipuncture / Unknown 07/12/2024 11:55 AM CDT 07/12/2024 12:18 PM CDT us Siobhan Jimenez MD CHEMISTRY ORDERABLES Final Re sult [facility] [address] [place] [address] * ELENITA SCREENING BILATERAL DIGITAL W CAD W LEYLA (01/09/2023 10:21 AM CDT) Anatomical Region Laterality Modality breast Bilateral Mammography 01/09/2023 10:2 4 AM CDT Narrative 01/10/2023 12:18 PM CDT - ELENITA SCREENING BILATERAL DIGITAL W CAD W LEYLA BILATERAL DIGITAL SCREENING MAMMOGRAM 3D/2D WITH CAD WITH MEDIOLATERAL OBLIQUE CRANIOCAUDAL: 01/09/2023 The study was acquired using digital technology and interpreted from soft copy. Current study was also evaluated with ICAD version 7.2. 2D digital mammographic views, as well as 3D digital tomosynthesis were performed in the CC and MLO projections. CLINICAL: Routine screening. Patient has no complaints. No personal history of cancer. No family history of breast cancer. COMPARISONS: Comparison is made to exams dated: 06/15/2019, 02/20/2018, and 12/05/2016 [facility]. BREAST TISSUE:The tissue of both breasts is predominantly fatty. FINDINGS: No significant masses, calcifications, or other findings are seen in either breast. There has been no significant interval change. IMPRESSION: BI-RAD 1 NEGATIVE There is no mammographic evidence of malignancy. A 1 year screening mammogram is recommended. A letter will be sent to the patient with these results. The patient will be entered into a reminder system with a target due date of 1 year for her next screening exam. Electronically signed by: Yoselyn mata/penrad:01/09/2023 17:19:33 Hazardous Waste Management Specialist(s): RT Aundrea(R)(M), [facility] letter sent: Normal Exam Reading location: [facility] BI-RADS: 1 Negative Procedure Note Yoselyn Gordon MD - 01/10/2023 - ELENITA SCREENING BILATERAL DIGITAL W CAD W LEYLA BILATERAL DIGITAL SCREENING MAMMOGRAM 3D/2D WITH CAD WITH MEDIOLATERAL OBLIQUE CRANIOCAUDAL: 01/09/2023 The study was acquired using digital technology and interpreted from soft copy. Current study was also evaluated with WhoseView.ieD version 7.2. 2D digital mammographic views, as well as 3D digital tomosynthesis were performed in the CC and MLO projections. CLINICAL: Routine screening. Patient has no complaints. No personal history of cancer. No family history of breast cancer. COMPARISONS: Comparison is made to exams dated: 06/15/2019, 02/20/2018, and 12/05/2016 [facility]. BREAST TISSUE:The tissue of both breasts is predominantly fatty. FINDINGS: No significant masses, calcifications, or other findings are seen in either breast. There has been no significant interval change. IMPRESSION: BI-RAD 1 NEGATIVE There is no mammographic evidence of malignancy. A 1 year screening mammogram is recommended. A letter will be sent to the patient with these results. The patient will be entered into a reminder system with a target due date of 1 year for her next screening exam. Electronically signed by: Yoselyn mata/penrad:01/09/2023 17:19:33 Hazardous Waste Management Specialist(s): RT Aundrea(R)(M), [facility] letter sent: Normal Exam Reading location: [facility] BI-RADS: 1 Negative Adam Wiggins MD IMG MAMMO ORDERABLES Final Re sult * ELENITA BONE DENSITOMETRY AXIAL SKELETON (02/20/2018 3:21 PM CDT) Anatomical Region Laterality Modality BODY N/A Other 02/20/2018 4:06 PM CDT Impressions 02/20/2018 4:08 PM CDT IMPRESSION: Normal, noting low normal L1 through L4 lumbar spine with T-score -1.0 Bone mineral density: Normal (T-score above or = -1.0) Low bone mass (T-score between -1.0 and -2.5) replaces the previously used term osteopenia Osteoporosis (T-score = or below -2.5) Medical evaluation for secondary causes of low bone mineral density may be appropriate. FRAX is a World Health Organization validated fracture risk assessment tool that calculates a person's 10 year probability of a major osteoporosis related fracture and hip fracture. According to the National Osteoporosis Foundation guidelines, postmenopausal women and men age 50 or older with low bone mass and a 10 year probability of a major osteoporosis related fracture = or greater than 20% or a 10 year probability of a hip fracture = or greater than 3% should be considered for treatment. For further information, including treatment recommendations, please refer to the 2013 ISCD Official Positions (http://www.iscd.org) and the NOF's Clinician's Guide to Prevention and Treatment of Osteoporosis (http://www.nof.org/professionals/clinical-guidelines) Narrative 02/20/2018 4:08 PM CDT EXAM DESCRIPTION: [facility] BONE DENSITOMETRY AXIAL SKELETON REASON FOR STUDY: 67 y/o year old F with given history of screening. County Administrator/Model: Diurnal (S/N [id number]) CLINICAL INFORMATION: Current height: 60.0 inches Maximum height: Unspecified inches Weight: 165.0 pounds Risk factors: Family history (parent with a hip fracture), chronic glucocorticoids, and history of fracture as an adult COMPARISON: None available. FINDINGS: AP LUMBAR SPINE L1-L4: Total BMD is 1.071 g/cm2 T-score is -1.0 LEFT HIP: Total BMD is 1.015 g/cm2 T-score is 0.1 Femoral neck BMD is 0.924 g/cm2 T-score is -0.8 THIS IS AN ELECTRONICALLY VERIFIED FINAL REPORT 02/20/2018 4:06 PM - Electronically signed by Chandler HO: VIC Report ID: [id number] Reading Location: [place] [address] Procedure Note Chandler Quiroz MD - 02/20/2018 EXAM DESCRIPTION: ELENITA BONE DENSITOMETRY AXIAL SKELETON REASON FOR STUDY: 67 y/o year old F with given history of screening. County Administrator/Model: Diurnal (S/N [id number]) CLINICAL INFORMATION: Current height: 60.0 inches Maximum height: Unspecified inches Weight: 165.0 pounds Risk factors: Family history (parent with a hip fracture), chronic glucocorticoids, and history of fracture as an adult COMPARISON: None available. FINDINGS: AP LUMBAR SPINE L1-L4: Total BMD is 1.071 g/cm2 T-score is -1.0 LEFT HIP: Total BMD is 1.015 g/cm2 T-score is 0.1 Femoral neck BMD is 0.924 g/cm2 T-score is -0.8 THIS IS AN ELECTRONICALLY VERIFIED FINAL REPORT 02/20/2018 4:06 PM - Electronically signed by Chandler Quiroz M.D. VIC: VIC Report ID: [id number] Reading Location: [place] [address] IMPRESSION: Normal, noting low normal L1 through L4 lumbar spine with T-score -1.0 Bone mineral density: Normal (T-score above or = -1.0) Low bone mass (T-score between -1.0 and -2.5) replaces the previously used term osteopenia Osteoporosis (T-score = or below -2.5) Medical evaluation for secondary causes of low bone mineral density may be appropriate. FRAX is a World Health Organization validated fracture risk assessment tool that calculates a person's 10 year probability of a major osteoporosis related fracture and hip fracture. According to the National Osteoporosis Foundation guidelines, postmenopausal women and men age 50 or older with low bone mass and a 10 year probability of a major osteoporosis related fracture = or greater than 20% or a 10 year probability of a hip fracture = or greater than 3% should be considered for treatment. For further information, including treatment recommendations, please refer to the 2013 ISCD Official Positions (http://www.iscd.org) and the NOF's Clinician's Guide to Prevention and Treatment of Osteoporosis (http://www.nof.org/professionals/clinical-guidelines) us Adam Wiggins MD IMG DEXA ORDERABLES Final Res ult * HM COLONOSCOPY (04/24/2011) us Sven Radford Sumit DO PROCEDURE/MINOR SURGICAL ORDERA BLES Final Result from Last 3 Months or Most Recently Relevant to Health Maintenance Insurance MEDICARE [facility] Care Teams Assistant Technician Relationship Specialty Start Date End Date Adam Wiggins MD [address] [place] [phone] PCP - General 06/08/15 David Henriquez MD [address] [address] Consulting Physician Colon and Rectal Surgery 10/09/23 Stas Malin MD [address] [place] [address] Consulting Physician Medical Oncology 06/05/23
--- OUTSIDE RECORDS SUMMARY | 2024-08-19 14:52 | XMS_ITS | Encounter Summary ---
Author Organization [facility] Address [address] [place] [address] Care Team Providers Care Neon Glass Bender Name Role Phone Adam Wiggins MD Primary Care Provider [phone] Encounter Details Date Type Department Care Team (Late st Contact Info) Description 07/14/2007 Orders Only [facility] Internal Medicine [address] [address] Adam Wiggins MD [address] [place] [phone] Social History Tobacco Use Types Packs/Day Years Used Date Smoking Tobacco: Never Assessed Comments Unknown Sex and Gender Information Value Date Recorded Sex Assigned at Not on file Legal Sex Female 5:28 AM E MAIL SYSTEM ADMINISTRATOR Gender Identity Not on file Sexual Orientation Straight 02/05/2024 6: 22 PM CDT documented as of this encounter Progress Notes * Adam Wiggins MD - 09/25/2007 7:40 PM CDT TIME:09:39 am PATIENT`S HOME PHONE: PATIENT`S WORK PHONE: PATIENT`S INSURANCE: [employer] PPO WHO TOOK THE CALL: Araceli Smith R GENERAL INFORMATION ALTERNATIVE PHONE NUMBER: [phone] or [phone] WHO CALLED: Patient called. PHARMACY NUMBER: [phone] PROBLEMS: patient missed appt unable to leave work. She rescheduled her appt for next Saturday. She has been out of thyroid meds for one week. Can we refill levoxyl for one week? Should she still get blood test done since she did not take meds for a week? SECTION 1: DOCTOR`S RESPONSE: kenyon 07/14/07 at 09:54 am MEDICATIONS: Call in to Pharmacy LEVOXYL ORAL TABLET 200 MCG, 1 Every Day, 30 Dispensed, 3 Fills, status: CONTINUED, 07/14/2007. wait on lab FINAL ACTION: giovanni 07/14/07 at 12:02 pm Called pharmacy at 07/14/07 at 12:02 pm. Electronically Signed by: Araceli Smith on Saturday, July 14, 2007 documented in this encounter Plan of Treatment Upcoming Encounters Date Type Department Care Team (Late st Contact Info) Description 11/13/2024 11:20 AM CDT Office Visit [facility] [place] [address] Adam Wiggins MD [address] [place], [place] [phone] documented as of this encounter Visit Diagnoses Not on filedocumented in this encounter Care Teams Neon Glass Bender Relationship Specialty Start Date End Date Adam Wiggins MD PCP - General 07/21/07 documented as of this encounter
--- OUTSIDE RECORDS SUMMARY | 2024-08-19 14:52 | XMS_ITS | Encounter Summary ---
Author Organization [facility] Address [address] [place] [address] Care Team Providers Care Wood Craftsman Name Role Phone Hugh Sierra MD Unavailable [phone] Adam Wiggins MD Primary Care Provider [phone] Encounter Details Date Type Department Care Team (Late st Contact Info) Description 03/27/2022 Lab Requisition [facility] Care Pathology Lab [address] [place] [address] Edison Bustamante MD [address] [place] [address] Illness, unspecified Social History Tobacco Use Types Packs/Day Years Used Date Smoking Tobacco: Never Smokeless Tobacco: Never Alcohol Use Standard Drinks/Week Comments Yes 1.7 (1 standard drink = 0.6 oz p ure alcohol) once/week Comments No Sex and Gender Information Value Date Recorded Sex Assigned at Not on file Legal Sex Female 2:59 PM CDT Gender Identity Not on file Sexual Orientation Not on file documented as of this encounter Functional Status * Is person deaf or have serious hearing difficulty? Answer Date of Assessment Author No 03/01/2014 1:27 PM Gideon Benito RN * Is person blind or have serious difficulty seeing? Answer Date of Assessment Author No 03/01/2014 1:27 PM Gideon Benito RN * Does person have serious difficulty walking/climbing stairs? Answer Date of Assessment Author No 03/01/2014 1:27 PM Gideon Benito RN * Does person have difficulty dressing/bathing? Answer Date of Assessment Author No 03/01/2014 1:27 PM Gideon Benito RN * Does person have difficulty doing errands alone? Answer Date of Assessment Author No 03/01/2014 1:27 PM Gideon Benito RN documented as of this encounter Mental Status * Does person have difficulty concentrating/remembering/making decisions? Answer Entry Date Author No 03/01/2014 1:27 PM Gideon Benito RN documented in this encounter Plan of Treatment Not on file documented as of this encounter Procedures Procedure Name Priority Date/Time Associated Diagnosis Comments BONE MARROW BIOPSY (STL) Routine 03/26/2022 8:11 AM ASSISTANT PROFESSOR OF SOCIOLOGY Illness, unspecified documented in this encounter Results * BONE MARROW BIOPSY (STL) (03/26/2022 8:11 AM ASSISTANT PROFESSOR OF SOCIOLOGY) Case Report Bone Marrow Patholog y Report Case: [id number] Authorizing Provider: Edison Bustamante MD Collected: 03/26/2022 08:11 AM Ordering Location: [facility] Lab Received: 03/27/2022 02:30 PM Pathologist: Tony Talley MD Specimens: A) - Bone Marrow Core B) - Bone Marrow Clot 03/29/2022 10:28 AM [facility] Final Diagnosis Bone marrow, aspirate, clot section, and core biopsy: - Normocellular marrow with maturing trilineage hematopoiesis. - No evidence of lymphoma, overt plasma cell neoplasm, or high-grade myeloid neoplasm. - See description. Peripheral blood smear: - Normocytic anemia. - See description. 03/29/2022 10:28 AM [facility] Comment Immunohistochemistry and in situ hybridization is performed to assess staining cells in an architectural context: CD138 is negative for an increased plasma cell population (~4% of marrow cellularity). In situ hybridization for kappa and lambda mRNA is non-contributory due to no staining. Due to the normal number of plasma cells, and overt plasma cell neoplasm is not seen in this study. 03/29/2022 10:28 AM [facility] Peripheral Smear Description RBC: normocytic anemia. WBC: normal in number and morphology. Platelets: normal in number and morphology. 03/29/2022 10:28 AM [facility] Bone Marrow Aspirate Differential count (200 cells): 0% blasts, 58% maturing myeloid precursors, 25% erythroid progenitors, 0% monocytes, 3% eosinophils, 12% lymphocytes, 2% plasma cells. Specimen quality: adequate. Spicules: numerous. Trilineage Hematopoiesis: present. Myeloid:Erythroid ratio: normal. Myeloid Maturation: normal. Erythroid Maturation: normal. Megakaryocyte morphology: normal size. Storage iron (by special stain): adequate. Sideroblastic iron (by special stain): no ring sideroblasts. 03/29/2022 10:28 AM [facility] Bone Marrow Core Biopsy and Clot Section Description Specimen quality: adequate with 1.1 cm of evaluable marrow. Cellularity: 40% Trilineage Hematopoiesis: present. Myeloid to Erythroid ratio: normal. Myeloid maturation and localization: normal. Erythroid maturation and localization: normal. Megakaryocyte number: small, hyperchromatic. Megakaryocyte distribution: small, loose clusters. Lymphoid aggregates: absent. Bone trabeculae: thin. Blood vessels: normal. Plasma cells: not increased. Reticulin: mild reticulin fibrosis. Clot section marrow particles: absent. Clot section morphology: peripheral blood only. 03/29/2022 10:28 AM [facility] Flow Cytometry Summary Bone marrow, flow cytometry ([id number]): - No clonal B-cell or increased blast population detected 03/29/2022 10:28 AM [facility] Clinical History Rule out plasma cell neoplasm. 03/29/2022 10:28 AM [facility] Materials Received Received are 11 slides and two blocks (A1, B1) labeled [id number] along with a copy of the outside pathology report. The materials originate from [facility], [address] [place] [address]. All original materials are returned to the referring institution, along with a copy of our final report. 03/29/2022 10:28 AM [facility] Disclaimer The performance characteristics of all immunohistochemical and indirect immunofluorescence stains (if any) cited in this report were determined by the [facility]opathology [facility]. Some of these tests were developed by our own laboratory and have not been cleared or approved by the US Food and Drug Administration. The FDA does not require this test to go through premarket FDA review. These tests are used for clinical purposes. They should not be regarded as investigational or for research. This laboratory is certified under the Clinical Laboratory Improvement Amendments (CLIA) as qualified to perform high complexity clinical laboratory testing. This case has been personally reviewed and interpreted by the attending (teaching) pathologist. 03/29/2022 10:28 AM [facility] Embedded Images 03/29/2022 10:28 AM [facility] Pathology/Cytology BONE MARROW CLOT SPECIMEN / Unknown 03/26/2022 8:11 AM ASSISTANT PROFESSOR OF SOCIOLOGY 03/27/2022 2:30 PM ASSISTANT PROFESSOR OF SOCIOLOGY Miscellaneous samples (specimen) BONE MARROW CLOT SPECIMEN / Unknown 03/26/2022 8:11 AM ASSISTANT PROFESSOR OF SOCIOLOGY 03/27/2022 2:30 PM ASSISTANT PROFESSOR OF SOCIOLOGY Edison Bustamante MD LAB - PATHOLOGY/CYTOLOGY ORD ERABLES Final Result Performing Organization Address City/State/[facility] Co de Phone Number [facility] PATHOLOG[facility] LAB [address] [phone] documented in this encounter Visit Diagnoses Diagnosis Illness, unspecified documented in this encounter Care Teams Wood Craftsman Relationship Specialty [place] [address] [place] [address] PCP - General Internal Medicine 03/06/13 [place] [address] [address] [place] [address] Orthopedic Surgery 03/06/13 documented as of this encounter
--- OUTSIDE RECORDS SUMMARY | 2024-08-19 14:52 | XMS_ITS | Encounter Summary ---
Author Organization [facility] Address [address] [place] [address] Phone Care Team Providers Care Good Humor Vendor Name Role Phone Adam Wiggins MD Primary Care Provider [phone] David Henriquez MD Unavailable Stas Malin MD Unavailable [phone] Reason for Referral * PT/OT/ST (Routine) - Authorized Specialty Diagnoses / Procedures Referred By Irais calderon Referred To Contact Physical Therapy Diagnoses Trochanteric bursitis of right hip 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 Cristal Hunt PAC [address] [place] [address] [place] [address] Phone: tel: fax: [facility] at [address], [address] [address] Phone: tel: fax: Referral ID Status Reason Start Date Expiration Date V isits Requested Visits Authorized [id number] Authorized 06/16/2024 50 50 Scheduling Instructions TIME ENGINEER Encounter Details Date Type Department Care Team (Late st Contact Info) Description 06/16/2024 Transcribe Orders [facility] [address] [place] [address] Cristal Hunt PAC [address] [place] [address] Trochanteric bursitis of right hip (Primary Dx); 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 Social History Tobacco Use Types Packs/Day Years [...] Description 08/20/2024 1:15 PM CDT Physical Therapy [facility] at [address], [address] [phone] Cristal Hunt PAC [address] [place] [address] Lin Fuller, PT [place] 09/08/2024 9:15 AM CDT Physical Therapy [facility] at [address], [address] [phone] Cristal Hunt PAC [address] [place] [address] Lin Fuller, [place] Discharge Disposition: Discharged to home or Selfcare 09/10/2024 10:00 AM CDT Physical Therapy [facility] at [address], [place] [address] [phone] Cristal Hutn PAC [address] [place] [address] Lin Fuller, [place] 09/22/2024 1:30 PM CDT [facility] [address], [place] [address] [place] [address] Cristal Hunt, PAC [address] [place] [address] Lin Fuller, [place] 10/01/2024 2:00 PM CDT [facility] [address], [place] [address] [place] [address] Cristal Hunt PAC [address] [place] [address] Lin Fuller, PT [place] 10/06/2024 2:15 PM CDT [facility] [address], [place] [address] [place] [address] Cristal Hunt PAC [address] [place] [address] Lin Fuller, PT [place] Scheduled Referrals Name Type Priority Associated Diagnoses Orde r Schedule PHYSICAL THERAPY REFERRAL Outpatient Referral Routine Trochanteric bursitis of right hip 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 Expected: 06/16/2024, Expires: 06/16/2025 documented as of this encounter Visit Diagnoses Diagnosis Trochanteric bursitis of right hip- Primary Enthesopathy of hip region 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 documented in this encounter Care Teams Good Humor Vendor Relationship Specialty Start Date End Date Adam Wiggins MD [address] [place] [phone] PCP - General 06/08/15 David Henriquez MD [address] [address] Consulting Physician Colon and Rectal Surgery 10/09/23 Stas Malin MD [address] [place] [address] Consulting Physician Medical Oncology 06/05/23 documented as of this encounter
--- OUTSIDE RECORDS SUMMARY | 2024-08-19 14:52 | XMS_ITS | Encounter Summary ---
Author Organization [facility] Address [address] [place] [address] Phone Care Team Providers Care Field Control Inspector Name Role Phone Adam Wiggins MD Primary Care Provider [phone] David Henriquez MD Unavailable Stas Malin MD Unavailable Reason for Visit * Reason Comments Medication Refill Encounter Details Date Type Department Care Team (Late st Contact Info) Description 07/05/2022 Refill [facility] Oncology Services [address] [place] [phone] Stas Malin MD [address] [place] [address] Medication Refill Social History Tobacco Use Types Packs/Day Years Used Date Smoking Tobacco: Never Smokeless Tobacco: Never Alcohol Use Standard Drinks/Week Comments Yes 2 (1 standard drink = 0.6 oz pure alcohol) social drinking, two glasses of wine per week Sexually Active Control Partners Comments Yes Male Comments No Sex and Gender Information Value Date Recorded Sex Assigned at Not on file Legal Sex Female 7:47 PM CDT Gender Identity Not on file Sexual Orientation Not on file documented as of this encounter Miscellaneous Notes * Telephone Encounter - Rosalba Tam RN - 07/05/2022 10:58 AM CDT Refilled ferrous sulfate per last f/u note. documented in this encounter Plan of Treatment Upcoming Encounters Date Type Department Care Team (Late st Contact Info) Description 08/20/2024 1:15 PM CDT Physical [facility] [address], [place] [address] [place] [address] Cristal Hunt PAC [address] [facility] [place] [address] Lin Fuller, PT [place] 09/08/2024 9:15 AM CDT Physical Therapy [facility] at [address], [place] [address] [place] [address] Cristal Hunt PAC [address] [facility] [place] [address] Lin Fuller, PT [place] Discharge Disposition: Discharged to home or Selfcare 09/10/2024 10:00 AM CDT Physical Therapy [facility] at [address], [place] [address] [place] [address] Cristal Hunt PAC [address] [facility] [place] [address] Lin Fuller, PT [place] 09/22/2024 1:30 PM CDT [facility] [address], [place] [address] [place] [address] Cristal Hunt PAC [address] [facility] [place] [address] Lin Fuller, PT [place] 10/01/2024 2:00 PM CDT [facility] [address], [facility] [address] [place] [phone] Cristal Hunt, PAC [address] [facility] [place] [address] Lin Fuller, PT [place] 10/06/2024 2:15 PM CDT [facility] [address], [place] [address] [place] [address] Cristal Hunt, PAC [address] [facility] [place] [address] Lin Fuller, PT [place] documented as of this encounter Visit Diagnoses Not on filedocumented in this encounter Care Teams Field Control Inspector Relationship Specialty Start Date End Date Adam Wiggins MD [address] [place] [phone] PCP - General 06/08/15 David Henriquez MD [address] [facility] [address] [place] [address] Consulting Physician Colon and Rectal Surgery 10/09/23 Stas Malin MD [address] [place] [address] Consulting Physician Medical Oncology 06/05/23 documented as of this encounter
--- OUTSIDE RECORDS SUMMARY | 2024-08-19 14:52 | XMS_ITS | Referral Summary ---
Author Organization [facility] Building [address] Address [address] [place] [address] Care Team Providers Care Recovery Engineer Name Role Phone Kathleen Subramanian MD Primary Care Provider + Yosi Luna MD Unavailable [phone] Encounters Date Type Department Care Team Description 07/31/2024 11:45 AM CDT Office Visit [facility] Orthopedics and Sports Medicine [address] [place] [address] [address] [place] [address] Ailyn Marshall NP Trochanteric bursitis of right hip (Primary Dx); It band syndrome, right 06/16/2024 Orders Only [facility] Orthopedics and Sports Medicine [address] [place] [address] [address] [place] [address] Cristal Hunt PA Trochanteric bursitis of right hip (Primary Dx); 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 06/16/2024 Telephone [facility] Orthopedics and Sports Medicine [address] [place] [address] [address] [place] [address] Nelly Granger MA 05/26/2024 Orders Only [facility] Orthopedics and Sports Medicine [address] [place] [address] [address] [place] [address] Cristal Hunt PA Trochanteric bursitis of right hip (Primary Dx) 05/26/2024 7:54 AM DRILL GRINDER - 05/26/2024 11:59 PM DRILL GRINDER Hospital Encounter [facility]ics and Sports Medicine [address] [place] [address] [address] [place] [address] Discharge Disposition: Discharge to home or self care 05/26/2024 3:45 PM DRILL GRINDER Office Visit [facility] Orthopedics [facility] Sports Medicine [address] [place] [address] [address] [place] [address] Cristal Hunt PA Trochanteric bursitis of right hip (Primary Dx); 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 from Last 3 Months Allergies Active Allergy Reactions Criticality Noted Date Comments Azithromycin Diarrhea,Stomach upset Low 01/05/2009 Erythromycin Nausea & Vomiting Low 03/01/2014 Nebivolol Diarrhea Low 01/16/2019 Nickel Rash Medium 08/11/2013 RASH --DR. LE IS AWARE RASH --DR. LE IS AWARE RASH --DR. LE IS AWARE RASH --DR. LE IS AWARE Penicillins Rash,Hives Medium 02/10/2007 Medications buPROPion SR (WELLBUTRIN SR) 100 mg 12 hr tabletIndications: Anxiety with Depression 4 08/25/[address] (CYMBALTA) 60 mg capsuleIndications :Anxiety with Depression Take 1 capsule (60 mg total) by mouth daily 09/28/19 19 Active glycopyrrolate (ROBINUL) 2 mg tabletIndications: diarrhea Take 1 tablet (2 mg total) by mouth nightly 09/29/19 19 Active mirabegron ER (MYRBETRIQ) 50 mg tablet extended release 24 hrIndications:Urin kelley Urgency Take 1 tablet (50 mg total) by mouth nightly Active montelukast (SINGULAIR) 10 mg tabletIndications: Seasonal Allergic Rhinitis Take 1 tablet (10 mg total) by mouth nightly Active amLODIPine (NORVASC) 2.5 mg tabletIndications: hypertension Take 1 tablet (2.5 mg total) by mouth daily 01/07/20 21 Active fluticasone propionate (FLONASE) 50 mcg/actuation nasal sprayIndications:A llergic Rhinitis USE 2 SPRAYS INTO EACH NOSTRIL DAILY 12/11/19 18 Active Lacto.acidophilus- Bif.animalis 32 billion cell capsuleIndications :probiotic for healthy gut Take 1 tablet by mouth daily Active olmesartan (BENICAR) 40 mg tabletIndications: hypertension Take 1 tablet (40 mg total) by mouth daily 01/24/20 21 Active pravastatin (PRAVACHOL) 10 mg tabletIndications: hyperlipidemia Take 1 tablet (10 mg total) by mouth nightly 07/07/19 22 Active Synthroid 137 mcg tabletIndications: hypothyroidism Take 1 tablet (137 mcg total) by mouth nightly 09/23/19 22 Active temazepam (RESTORIL) 30 mg capsuleIndications :Insomnia TAKE 1 CAPSULE BY MOUTH NIGHTLY NEEDED FOR INSOMNIA. 10/13/19 22 Active estradioL (ESTRACE) 0.01 % (0.1 mg/gram) vaginal creamIndications:P ostmenopausal Urethral Atrophy INSERT 1/2 GRAM VAGINALLY ON SATURDAY, SATURDAY AND SATURDAY AT BEDTIME AFTER VAGINAL PACKING IS REMOVED 10/04/19 22 Active famotidine (PEPCID) 20 mg tabletIndications: Heartburn Take 1 tablet (20 mg total) by mouth 2 (two) times a day 10/04/19 22 Active cyclobenzaprine (FLEXERIL) 10 mg tabletIndications: Muscle Spasm Take 1 tablet (10 mg total) by mouth 3 (three) times a day as needed 07/06/19 23 Active ferrous sulfate 325 mg (65 mg of elemental iron) tabletIndications: Iron Deficiency Anemia Take 1 tablet (325 mg total) by mouth daily 07/06/19 23 Active gabapentin (NEURONTIN) 600 mg tabletIndications: Neuropathic Pain Take 3 tablets (1,800 mg total) by mouth nightly 11/20/19 24 Active ondansetron (ZOFRAN) 8 mg tabletIndications: Prevention of Post-Operative Nausea and Vomiting Take 1 tablet (8 mg total) by mouth every 8 (eight) hours as needed for nausea or vomiting 20 tablet 2 02/20/20 24 Active HYDROcodone-acetam inophen (NORCO) 5-325 mg per tablet TAKE 1 TABLET BY MOUTH EVERY 4 HOURS NEEDED FOR MODERATE PAIN . DO NOT EXCEED 6 PER 24 HOURS 07/21/19 25 Active cefdinir (OMNICEF) 300 mg capsule Take 1 capsule (300 mg total) by mouth 2 (two) times a day Active multivitamin with minerals tabletIndications: Vitamin Deficiency Take 1 tablet by mouth Discontin ued(Thera py completed ) ondansetron ODT (ZOFRAN-ODT) 4 mg disintegrating tabletIndications: Prevention of Post-Operative Nausea and Vomiting DISSOLVE 1 TABLET IN MOUTH EVERY 6 HOURS NEEDED 11/15/19 24 Discontin ued(Thera py completed ) pregabalin (LYRICA) 75 mg capsuleIndications :Postoperative Acute Pain Take 1 capsule (75 mg total) by mouth nightly 02/12/20 24 025 Discontin ued(Thera py completed ) tirzepatide (Mounjaro) 5 mg/0.5 mL pen injector Inject 0.5 mL (5 mg total) under the skin once a week Discontin ued(Thera py completed ) aspirin (Ecotrin) 325 mg enteric coated tabletIndications: prevention of thrombosis Take 1 tablet (325 mg total) by mouth daily 42 tablet 02/20/20 Discontin ued(Thera py completed ) celecoxib (CeleBREX) 200 mg capsuleIndications :Postoperative Acute Pain Take 1 capsule (200 mg total) by mouth 2 (two) times a day 84 capsule 02/20/20 Discontin ued(Thera py completed ) senna-docusate (PERICOLACE) 8.6-50 mgIndications:cons tipation Take 1 tablet by mouth 2 (two) times a day as needed for constipation 60 tablet 2 02/20/20 Discontin ued(Thera py completed ) oxyCODONE-acetamin ophen (PERCOCET) 5-325 mg per tabletIndications: Pain Take 1-2 tablets by mouth every 4 (four) hours as needed for pain 40 tablet 03/03/20 24 025 Discontin ued(Thera py completed ) clindamycin (CLEOCIN) 300 mg capsule 2 tablets PO prior to procedure and 1 tablet PO 6 hours after the procedure 3 capsule 2 05/26/19 25 Discontin ued(Dimitri nt Reported) Active Problems Problem Noted Date Diagnosed Date Trochanteric bursitis of right hip 05/26/2024 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 04/03/2024 Family history of colon cancer in father 10/11/2 024 History of colonic polyps 01/31/2024 Encounter for screening colonoscopy 01/31/2024 Laryngeal spasm 11/06/2021 Assessment & Plan (11/06/2021 12:18 PM CDT): Omeprazole 40 mg 30 minutes before first meal of the day Pepcid 40 mg at bedtime Chest X-ray Blood allergy testing If no improvement in 3 months, will change up allergy meds, but if improvement noted, will wean off omeprazole LPR discussed and Handout provided Seasonal allergic rhinitis due to pollen 022 Assessment & Plan (11/06/2021 12:18 PM CDT): Omeprazole 40 mg 30 minutes before first meal of the day Pepcid 40 mg at bedtime Chest X-ray Blood allergy testing If no improvement in 3 months, will change up allergy meds, but if improvement noted, will wean off omeprazole Chronic cough 11/06/2021 Assessment & Plan (11/06/2021 12:19 PM CDT): Omeprazole 40 mg 30 minutes before first meal of the day Pepcid 40 mg at bedtime Chest X-ray Blood allergy testing If no improvement in 3 months, will change up allergy meds, but if improvement noted, will wean off omeprazole Bilateral impacted cerumen 11/06/2021 Assessment & Plan (11/06/2021 12:21 PM CDT): Avoid ear cleaning techniques Depression, major, recurrent, mild 02/20/2019 Absence of bladder continence 10/14/2018 Disorder of rotator cuff 05/03/2016 Urge incontinence 08/17/2015 HTN (hypertension) 11/10/2013 S/P total knee replacement 09/22/2013 Osteoarthrosis involving lower leg 06/18/2013 Overview (04/11/2021): 2015 IMO Updt Backache 02/10/2007 Chronic maxillary sinusitis 02/10/2007 Depressive state 02/10/2007 Hypothyroidism 02/10/2007 Insomnia 02/10/2007 Other and unspecified hormon es and synthetic substitutes causing adverse effect in therapeutic use 02/10/2007 Resolved Problems Problem Noted Date Diagnosed Date Resolved Date Primary osteoarthritis of right hip 02/12/2024 04/03/2024 Social History Tobacco Use Types Packs/Day Years Used Date Smoking Tobacco: Never Smokeless Tobacco: Never Tobacco Cessation:Counseling Given: Not Answered OASIS D0700: Social Isolation Answer Da te Recorded Frequency of experiencing loneliness or isolatio n Never 03/16/2024 OASIS A1250: Transportation Answer Date Recorded Lack of Transportation (Medical) No 03/16/2024 Lack of Transportation (Non-Medical) No 03/16/2024 Patient Unable or Declines to Respond No 03/16/2024 OASIS B1300: Health Literacy Answer Ramos e Recorded Frequency of needing help to read materials from doctor or pharmacy Never 03/16/2024 AUDIT-C Answer Date Recorded Q1: How often do you have a drink containing alc ohol? 2-3 times a week 05/13/2024 Q2: How many drinks containi ng alcohol do you have on a typical day when you are drinking? 1 or 2 05/13/2024 Frequency of Binge Drinking Not on file 04/23 Personal Safety Answer Date Recorded Have you ever been in or are you currently in a harmful physical or emotional relationship or is someone making you feel afraid or unsafe? Denies 05/13/2024 Comments No Sex and Gender Information Value Date Recorded Sex Assigned at Not on file Legal Sex Female 7:59 PM DRILL GRINDER Gender Identity Not on file Sexual Orientation Not on file Last Filed Vital Signs Vital Sign Reading Time Taken Comments Blood Pressure 137/66 07/31/2024 11:39 AM CDT Pulse 93 07/31/2024 11:39 AM CDT Temperature 36.7 C (98 F) 05/13/2024 9:42 AM DRILL GRINDER Respiratory Rate 18 05/13/2024 9:42 AM DRILL GRINDER Oxygen Saturation 98% 05/13/2024 9:42 AM DRILL GRINDER Inhaled Oxygen Concentration - - Weight 82.6 kg (182 lb) 07/31/2024 11:39 AM CDT Height 149.9 cm (4' 11 ) 07/31/2024 11:39 AM CDT Body Mass Index 36.76 07/31/2024 11:39 AM CDT Plan of Treatment Not on file Medical Devices Implanted Type Area Agricultural Scientist Device Identifier Shelf Expiration Date Model / Serial / Lot [employer] Liner Acetabular Hip Standard Emphasys Aox [id number] Polyethylene [id number] - [id number] Implanted:Qty: 1 on 02/19/2024 by Yosi Luna MD at [facility] Right: Hip [employer] [id number] 12/20/2028 [id number] / / [id number] [employer] Shell Acetabular Hip Porous 3 Hole Coated Emphasys 50mm Titanium [id number] - [id number] Implanted:Qty: 1 on 02/19/2024 by Yosi Luna MD at [facility] Right: Hip [employer] 12/20/2033 [id number] / / [id number] [employer] [place] 6.5mm 35mm Acetabular Cancellous Screw Bone Sterile 1217-35-500 - [id number] Implanted:Qty: 1 on 02/19/2024 by Yosi Luna MD at [facility] Right: Hip [employer] 10/19/2033 1217-35-500 / / [id number] [employer] [place] 6.5mm 25mm Acetabular Cancellous Screw Bone Sterile 1217-25-500 - [id number] Implanted:Qty: 1 on 02/19/2024 by Yosi Luna MD at [facility] Right: Hip [employer] 10/19/2033 1217-25-500 / / [id number] [employer] Actis Collar Hip 3 High Offset Stem Femoral [id number] - [id number] Implanted:Qty: 1 on 02/19/2024 by Yosi Luna MD at [facility] Right: Hip [employer] 08/19/2033 [id number] / / [id number] [employer] Articul/Markus 36mm Cementless Hip +5mm 12/14 Taper Head Femoral Latex Free [id number] - [id number] Implanted:Qty: 1 on 02/19/2024 by Yosi Luna MD at [facility] Right: Hip [employer] 10/19/2028 [id number] / / [id number] Procedures Procedure Name Priority Date/Time Associated Diagnosis Comments XR HIP RIGHT 2 OR 3 VIEWS Schedule Routine, Read Routine (OP Routine) 05/26/2024 3:32 PM DRILL GRINDER Trochanteric bursitis of right hip COLONOSCOPY 05/13/2024 7:16 AM DRILL GRINDER DIAGNOSTIC MAMMOGRAM BILATERAL W LEYLA Routine 06/03/2015 10:35 AM DRILL GRINDER DEXA AXIAL SKELETON BONE DENSITY 1 OR MORE SITES Routine 06/03/2015 10:27 AM DRILL GRINDER from Last 3 Months or Most Recently Relevant to Health Maintenance Results * XR Hip Right 2 or 3 Views (05/26/2024 3:32 PM DRILL GRINDER) Anatomical Region Laterality Modality Lower Extremities, Hip, Pelvis Right D igital Radiography Narrative 05/26/2024 3:47 PM DRILL GRINDER Radiographs taken of the right hip today reveal a total hip arthroplasty in appropriate position with no interval change from the time of surgery. us Cristal HASTINGS IMG XR PROCEDURES Fin al Result * Colonoscopy (05/13/2024 7:16 AM DRILL GRINDER) Anatomical Region Laterality Modality Other Narrative Procedure Note Sven Arana, DO - 05/13/2024 7:16 AM CST [facility] Patient Name: Kellee Cerna Procedure Date: 05/13/2024 7:16 AM Date of : 1950 Admit Type: Outpatient Age: 74 Gender: Female Attending MD: Sven Arana D.O. Room: [facility] ENDOSCOPY ROOM 3 Note Status: Finalized Patient Profile: Refer to note in patient chart for documentation of history and physical. Procedure: Colonoscopy Indications: High risk colon cancer surveillance: Personalhistory of colonic polyps, Family history of colon cancerin a first-degree relative before age 60 years, Last colonoscopy: 2019 Referring MD: Kathleen Subramanian M.D. Providers: Sven Arana D.O. Impression: - One 20 mm polyp in the cecum, removed piecemeal using a hot snare. Resected and retrieved. Clips(MR conditional) were placed. 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 - Diverticulosis in the left colon. Recommendation: - Discharge patient to home. - Resume previous diet. - Continue present medications. - Await pathology results. - Repeat colonoscopy in 1 year for surveillanceafter piecemeal polypectomy. - Return to primary care physician PRN. -Call 2 weeks for biopsy report. -Recheck colonoscopy 1 year. May require little bit extra preparation. Medicines: Monitored Anesthesia Care Complications: No immediate complications. Estimated Blood Loss: Estimated blood loss was minimal. Procedure: Pre-Anesthesia Assessment: - As per anesthesia. The benefits, risks and alternatives of theprocedure and sedation were discussed and informed consentwas obtained. All questions were answered. Please referto the signed informed consent document in the medical record. The bowel preparation used was Miralax via split dose instruction. The bowel preparation usedwas bisacodyl tablets via split dose instruction. The scope was passed under direct vision. The Pediatric Colonoscope PCF-H190L [id number] was introducedthrough the anus and advanced to the the terminal ileum,with identification of the appendiceal orifice and IC valve. The colonoscopy was technically difficultand complex. The patient tolerated the procedure well.The quality of the bowel preparation was adequate to identify polyps 6 mm and larger in size. Findings: The perianal and digital rectal examinations were normal. A 20 mm polyp was found in the cecum. The polyp was sessile and your regular. The polyp was removed with a piecemeal technique using a hot snare. Resection and retrieval were complete. Edges of thepolypectomy site were cauterized utilizing soft coag and the snare tip. Toprevent bleeding post-intervention, two hemostatic clips were successfully placed (MR conditional). 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 Therewas no bleeding at the end of the procedure. A few diverticula were found in the left colon. A few scattered diverticula were observed. Some mild postinflammatory changes fromnoted in the distal transverse colon proximal descending. No additional abnormalities were found on retroflexion. Electronically signed by Sven Arana M.D. Sven Arana D.O. 05/13/2024 9:19:13 AM Number of Addenda: 0 Note Initiated On: 05/13/2024 7:16 AM Procedure Code(s): --- Professional --- 18141, Colonoscopy, flexible; with removal of tumor(s), polyp(s), or other lesion(s) by snare technique --- Technical --- 12388, Colonoscopy, flexible; with removal of tumor(s), polyp(s), or other lesion(s) by snare technique Diagnosis Code(s): --- Professional --- Z86.010, Personal history of colonic polyps D12.0, Benign neoplasm of cecum Z80.0, Family history of malignant neoplasm of digestive organs K57.30, Diverticulosis of large intestine without perforation orabscess without bleeding --- Technical --- Z86.010, Personal history of colonic polyps D12.0, Benign neoplasm of cecum Z80.0, Family history of malignant neoplasm of digestive organs K57.30, Diverticulosis of large intestine without perforation orabscess without bleeding CPT copyright 2020 [employer]. All rights reserved. The codes documented in this report are preliminary and upon french translator reviewmay be revised to meet current compliance requirements. Recognized by the [place] [employer] for promoting quality in endoscopy Sven Arana DO ENDOSCOPY PROCEDURES Final Res ult * DIAGNOSTIC MAMMOGRAM BILATERAL W LEYLA (06/03/2015 10:35 AM DRILL GRINDER) Anatomical Region Laterality Modality Breast Bilateral Mammography 06/03/2015 10:3 5 AM DRILL GRINDER Narrative 06/03/2015 3:02 PM DRILL GRINDER MAMMOGRAM PERFORMED BY; SS SCREENING MAMM W LEYLA BI Acc#: [id number] Screening Mamm Bi Acc#: [id number] DATE OF EXAM: Jun 03 2015 `ADDENDUM PLEASE SEE BELOW CLINICAL HISTORY: Screening mammogram. History of breast reduction. RESULT: A screening mammogram with tomosynthesis was performed. The patient reports prior outside studies at [facility]; however, no prior studies are presently available for comparison. The breast tissue is composed of scattered fibroglandular densities. A focal asymmetry is seen in the left inner breast 10 cm deep to the nipple along the nipple line near the chest wall. Although this may be secondary to breast reduction changes, on the tomosynthesis views there is some evidence of spiculations in this area and correlation with outside mammogram is recommended. No suspicious calcifications, skin thickening, or nipple retraction is noted. Digital technology was employed plus computer-aided detection software (R2) was utilized in interpretation of these images. This facility utilizes a reminder system to notify patients of yearly mammograms. IMPRESSION: FOCAL ASYMMETRY DEEP IN THE LEFT CENTRAL BREAST. CORRELATION WITH OUTSIDE MAMMOGRAMS ARE RECOMMENDED. BI-RADS CATEGORY 0 - NEED ADDITIONAL IMAGING EVALUATION. `ADDENDUM Outside mammograms from [facility] performed 09/24/11 and 04/17/10 are now available. Since those mammograms, the patient has undergone reduction mammoplasties. The focal asymmetry deep in the left central breast is new since the prior studies and is indeterminate. Further evaluation with a diagnostic left breast mammogram including spot views, tomosynthesis, and a lateral medial projection is recommended. Additionally, an ultrasound may be warranted. CONCLUSION: NEW FOCAL ASYMMETRY IN THE LEFT DEEP CENTRAL BREAST. ALTHOUGH THIS IS LIKELY SECONDARY TO PRIOR REDUCTION MAMMOPLASTY, AN UNDERLYING LESION CANNOT BE EXCLUDED AND DIAGNOSTIC LEFT BREAST MAMMOGRAM AND POSSIBLE ULTRASOUND IS RECOMMENDED. Interpreting Physician: DINA DEUTSCH M.D. Read on: Jun 03 2015 10:36A Transcribed by: SHANTELLE On: Jun 03 2015 11:17A Approved Electronically by: DINA DEUTSCH M.D. on: Jun 03 2015 3:02P Attending: KATHLEEN SUBRAMANIAN Requesting: DR KATHLEEN SUBRAMANIAN Requesting Attending Fax: -- Attending ID: [id number] Requesting ID: [id number] Report To 1 ID: [id number] Report To 1 Name: KATHLEEN SUBRAMANIAN Report To 1 FAX: -- NextGen Order #: Procedure Note Provider, MD Seymour - 08/10/2016 MAMMOGRAM PERFORMED BY; SCREENING MAMM W LEYLA BI Acc#: [id number] Screening Mamm Bi Acc#: [id number] DATE OF EXAM: Jun 03 2015 `ADDENDUM PLEASE SEEBELOW CLINICAL HISTORY: Screening mammogram. History of breast reduction. RESULT: A screening mammogram with tomosynthesis was performed. The patientreports prior outside studies at [facility]; however, no prior studiesare presently available for comparison. The breast tissue is composed ofscattered fibroglandular densities. A focal asymmetry is seen in the leftinner breast 10 cm deep to the nipple along the nipple line near the chestwall. Although this may be secondary to breast reduction changes, on thetomosynthesis views there is some evidence of spiculations in this areaand correlation with outside mammogram is recommended. No suspiciouscalcifications, skin thickening, or nipple retraction is noted. Digitaltechnology was employed plus computer-aided detection software (R2) wasutilized in interpretation of these images. This facility utilizes [employer] system to notify patients of yearly mammograms. IMPRESSION: FOCAL ASYMMETRY DEEP IN THE LEFT CENTRAL BREAST. CORRELATION WITH OUTSIDEMAMMOGRAMS ARE RECOMMENDED. BI-RADS CATEGORY 0 - NEED ADDITIONAL IMAGINGEVALUATION. `ADDENDUM Outside mammograms from [facility] 09/24/11 and 04/17/10 are now available. Since those mammograms,the patient has undergone reduction mammoplasties. The focal asymmetrydeep in the left central breast is new since the prior studies and isindeterminate. Further evaluation with a diagnostic left breast mammogramincluding spot views, tomosynthesis, and a lateral medial projection isrecommended. Additionally, an ultrasound may be warranted. CONCLUSION: NEW FOCAL ASYMMETRY IN THE LEFT DEEP CENTRAL BREAST. ALTHOUGH THIS ISLIKELY SECONDARY TO PRIOR REDUCTION MAMMOPLASTY, AN UNDERLYING LESIONCANNOT BE EXCLUDED AND DIAGNOSTIC LEFT BREAST MAMMOGRAM AND POSSIBLEULTRASOUND IS RECOMMENDED. Interpreting Physician: DINA DEUTSCH M.D. Read on: Jun 03 201510:36A Transcribed by: SHANTELLE On: Jun 03 2015 11:17A Approved Electronically by: DINA DEUTSCH M.D. on: Jun 03 20153:02P Attending: KATHLEEN SUBRAMANIAN Requesting: DR KATHLEEN SUBRAMANIAN Requesting Attending Fax: -- Attending ID: [id number] Requesting ID: [id number] Report To 1 ID: [id number] Report To 1 Name: KATHLEEN SUBRAMANIAN Report To 1 FAX: -- NextGen Order #: us Historical Provider MD GIBSB MAMMO PROCEDURES [place] l Result * Dexa Axial Skeleton Bone Density 1 or 2 Site (06/03/2015 10:27 AM DRILL GRINDER) Anatomical Region Laterality Modality Body N/A Radiographic Elda ging 06/03/2015 10:2 7 AM DRILL GRINDER Narrative 06/03/2015 11:37 AM DRILL GRINDER DEXA Bone Density Axial Acc#: [id number] DATE OF EXAM: Jun 03 2015 CLINICAL HISTORY: Postmenopausal osteoporosis assessment. RESULT: DXA LEFT HIP RESULTS SUMMARY: BMD (g/cm'b2) T-score Z-score Neck 0.721 -1.2 0.5 Total 0.969 0.2 1.6 DXA L-SPINE RESULTS SUMMARY: BMD (g/cm'b2) T-score Z-score L1 0.834 -1.4 0.3 L2 0.886 -1.3 0.6 L3 1.020 -0.6 1.4 L4 0.849 -1.9 0.1 Total 0.903 -1.3 0.6 IMPRESSION: 1. OSTEOPENIA OF THE HIP WITH FEMORAL NECK T-SCORE -1.2. THE TOTAL T-SCORE IS NORMAL AT 0.2. 2. OSTEOPENIA OF THE LUMBAR SPINE WITH TOTAL T-SCORE -1.3. COMMENT: W.H.O. defines the T-score of between -1 and -2.5 as osteopenia, the level at which there may be an increased risk of developing osteoporosis and fractures in the future. Osteoporosis is defined as T-score lower than -2.5 (significantly increased risk of fracture due to osteoporosis). T-score is a comparison to peak bone mineral density of young adult reference population. Z-score is a comparison to bone mineral density of sex and age group population. Interpreting Physician: DERIK KAUR M.D. Read on: Jun 03 2015 10:27A Transcribed by: SHANTELLE On: Jun 03 2015 11:21A Approved Electronically by: DERIK KAUR M.D. on: Jun 03 2015 11:37A Attending: KATHLEEN SUBRAMANIAN Requesting: DR KATHLEEN SUBRAMANIAN Requesting Attending Fax: -- Attending ID: [id number] Requesting ID: [id number] Report To 1 ID: [id number] Report To 1 Name: KATHLEEN SUBRAMANIAN Report To 1 FAX: -- NextGen Order #: Procedure Note Provider, MD Seymour - 08/10/2016 DEXA Bone Density Axial Acc#: [id number] DATE OF EXAM: Jun 03 2015 CLINICAL HISTORY: Postmenopausal osteoporosis assessment. RESULT: DXA LEFT HIP RESULTS SUMMARY: BMD (g/cm'b2) T-score Z-score Neck 0.721 -1.2 0.5 Total 0.969 0.21.6 DXA L-SPINE RESULTS SUMMARY: BMD (g/cm'b2) T-score Z-score L1 0.834 -1.4 0.3 L2 0.886 -1.3 0.6 L31.020 -0.6 1.4 L4 0.849 -1.9 0.1 Total 0.903 -1.3 0.6 IMPRESSION: 1. OSTEOPENIA OF THE HIP WITH FEMORAL NECK T-SCORE -1.2. THE TOTALT-SCORE IS NORMAL AT 0.2. 2. OSTEOPENIA OF THE LUMBAR SPINE WITH TOTAL T-SCORE -1.3. COMMENT: W.H.O. defines the T-score of between -1 and -2.5 as osteopenia, thelevel at which there may be an increased risk of developing osteoporosisand fractures in the future. Osteoporosis is defined as T-score lowerthan -2.5 (significantly increased risk of fracture due to osteoporosis).T-score is a comparison to peak bone mineral density of young adultreference population. Z-score is a comparison to bone mineral density ofsex and age group population. Interpreting Physician: DERIK KAUR M.D. Read on: Jun 03 2015 10:27A Transcribed by: SHANTELLE On: Jun 03 2015 11:21A Approved Electronically by: DERIK KAUR M.D. on: Jun 03 2015 11:37A Attending: KATHLEEN SUBRAMANIAN Requesting: DR KATHLEEN SUBRAMANIAN Requesting Attending Fax: -- Attending ID: [id number] Requesting ID: [id number] Report To 1 ID: [id number] Report To 1 Name: KATHLEEN SUBRAMANIAN Report To 1 FAX: -- NextGen Order #: Historical Provider MD GIBBS DXA PROCEDURES Final Result from Last 3 Months or Most Recently Relevant to Health Maintenance Insurance MEDICARE [employer] [facility] MEDICARE [employer] [facility] MEDICARE [facility] MEDICARE SUPPLEMENT Advance Directives For more information, please contact: [phone] * Full Code (Latest Code Status on File) Date Activated Date Inactivated Comments 05/13/2024 7:10 AM 05/13/2024 1:52 PM * Full Code Date Activated Date Inactivated Comments 05/13/2024 7:09 AM 05/13/2024 7:10 AM * Full Code Date Activated Date Inactivated Comments 02/19/2024 4:13 PM 02/20/2024 3:44 PM Care Teams Recovery Engineer Relationship Specialty Start Date End Date Kathleen Subramanian MD PCP - General 6/13/17 Yosi Luna MD [address] [facility] [address] CORRALES [address] [place] [address] Surgeon Orthopedic Surgery 02/20/24
--- OUTSIDE RECORDS SUMMARY | 2024-08-19 14:52 | XMS_ITS | Encounter Summary ---
Author Organization [facility] Address [address] [place] [address] Care Team Providers Care Insurance Verifier Name Role Phone Adam Wiggins MD Primary Care Provider [phone] Encounter Details Date Type Department Care Team (Late st Contact Info) Description 02/10/2007 Outpatient Historical [facility] Internal Medicine [address] [address] Adam Wiggins MD [address] [place] [address] Social History Tobacco Use Types Packs/Day Years Used Date Smoking Tobacco: Never Assessed Comments Unknown Sex and Gender Information Value Date Recorded Sex Assigned at Not on file 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 Gender Identity Not on file Sexual Orientation Straight 02/05/2024 6: 22 PM CDT documented as of this encounter Last Filed Vital Signs Vital Sign Reading Time Taken Comments Blood Pressure 130/80 02/10/2007 1:30 PM CDT Pulse - - Temperature 36.8 C (98.2 F) 02/10/2007 1:30 PM CDT Respiratory Rate - - Oxygen Saturation - - Inhaled Oxygen Concentration - - Weight 78 kg (172 lb) 02/10/2007 1:30 PM CDT Height 152.4 cm (5') 02/10/2007 1:30 PM CDT Body Mass Index 33.59 02/10/2007 1:30 PM CDT documented in this encounter Plan of Treatment Upcoming Encounters Date Type Department Care Team (Late st Contact Info) Description 11/13/2024 11:20 AM CDT Office Visit [facility] Primary Care [address] [place] [address] Adam Wiggins MD [address] [place] [address] [address] [place] [address] documented as of this encounter Visit Diagnoses Not on filedocumented in this encounter Care Teams Insurance Verifier Relationship Specialty Start Date End Date Adam Wiggins MD PCP - General 07/21/07 documented as of this encounter
--- OUTSIDE RECORDS SUMMARY | 2024-08-19 14:52 | XMS_ITS | Clinical Summary ---
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 Gender Identity Not on file Sexual Orientation Not on file Plan of Treatment Health Maintenance Due Date Last Done Comments Hepatitis C 1968 Dexa Scan (General) 2013 Zoster Vaccines (3 of 3) 02/11/2020 020, 04/03/2012 DTaP, Tdap and Td Vaccines ( 2 - Td or Tdap) 03/28/2021 03/28/2011 RSV Immunization or 60+ Years (1 - 1-dose 75+ series) 2023 COVID-19 Vaccine (3 - 2023-2 5 season) 2023 05/24/2020, 04/26/2020 Pneumococcal Vaccine: 50+ Years Completed 12/26/2018, 06/14/2015, 03/03/2014 Meningococcal B Vaccine Aged Out No l onger eligible based on patient's age to complete this topic Meningococcal Vaccine Aged Out No anibal kiara eligible based on patient's age to complete this topic RSV Immunizations Under 20 Months Aged Out No longer eligible b ased on patient's age to complete this topic
--- OUTSIDE RECORDS SUMMARY | 2024-08-19 14:52 | XMS_ITS | Encounter Summary ---
Author Organization [facility] Address [address] [place] [address] Care Team Providers Care Clerical Secretary Name Role Phone Adam Wiggins MD Primary Care Provider [phone] Encounter Details Date Type Department Care Team (Latest Contact Info) Description 07/14/2024 Results Follow-Up [facility] Medicine [address] [place] [address] Dolores Long, M[employer]ECTION Social History Tobacco Use Types Packs/Day Years Used Date Smoking Tobacco: Never Passive Smoke Exposure: Never Smokeless Tobacco: Never Alcohol Use Standard Drinks/Week Comments Not Currently 0 (1 standard drink = 0.6 oz pur e alcohol) 1-2 A WEEK Social Connections Answer Date Recorded In a typical week, how many times do you talk on the phone with family, friends, or neighbors? More than three times a week 02/26/2019 How often do you get togethe r with friends or relatives? More than three times a week 02/26/2019 How often do you attend chur ch or orthodoxy services? Never 02/26/2019 Do you belong to any clubs o r organizations such as amish groups, unions, fraternal or athletic groups, or school groups? Yes 02/26/2019 How often do you attend meet ings of the clubs or organizations you belong to? More than 4 times per year 02/26/2019 Are you , , di vorced, , never , or living with a partner? 02/26/2019 Financial Resource Strain Answer Date R ecorded How hard is it for you to pa y for the very basics like food, housing, medical care, and heating? Not hard at all 07/06/2021 Food Insecurity Answer Date Recorded In the past 12 months, have you worried that your food would run out before you had money to buy more? Never true 07/06/2021 In the past 12 months, did y ou run out of food and didn't have money to buy more? Never true 07/06/2021 Transportation Needs Answer Date Record ed In the past 12 months, has l ack of transportation kept you from medical appointments or from getting medications? 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 Gender Identity Not on file Sexual Orientation Straight 02/05/2024 6: 22 PM CDT Occupation Industry Job Start Date Job End Date RETIRED Not on file Not on file Not on file documented as of this encounter Plan of Treatment Upcoming Encounters Date Type Department Care Team (Late st Contact Info) Description 11/13/2024 11:20 AM CDT Office Visit [facility] Primary Care [id number] [place] [address] Adam Wiggins MD [address] [place] [address] [address] [place] [address] documented as of this encounter Visit Diagnoses Not on filedocumented in this encounter Care Teams Clerical Secretary Relationship Specialty Start Date End Date Adam Wiggins MD PCP - General 07/21/07 documented as of this encounter
--- OUTSIDE RECORDS SUMMARY | 2024-08-19 14:52 | XMS_ITS | Clinical Summary ---
Author Organization [facility] Address [address] [place] [address] Care Team Providers Care Tool Shaper Setup Operator Name Role Phone Kathleen Subramanian MD Primary Care Provider + Yosi Luna MD Unavailable Allergies Active Allergy Reactions Criticality Noted Date [...] mg total) by mouth nightly 02/12/20 24 Discontin ued(Thera py completed ) tirzepatide (Mounjaro) 5 mg/0.5 mL pen injector Inject 0.5 mL (5 mg total) under the skin once a week Discontin ued(Thera py completed ) aspirin (Ecotrin) 325 mg enteric coated tabletIndications: prevention of thrombosis Take 1 tablet (325 mg total) by mouth daily 42 tablet 02/20/20 24 025 Discontin ued(Thera py completed ) celecoxib (CeleBREX) 200 mg capsuleIndications :Postoperative Acute Pain Take 1 capsule (200 mg total) by mouth 2 (two) times a day 84 capsule 02/20/20 24 025 Discontin ued(Thera py completed ) senna-docusate (PERICOLACE) 8.6-50 mgIndications:cons tipation Take 1 tablet by mouth 2 (two) times a day as needed for constipation 60 tablet 2 02/20/20 24 Discontin ued(Thera py completed ) oxyCODONE-acetamin ophen (PERCOCET) 5-325 mg per tabletIndications: Pain Take 1-2 tablets by mouth every 4 (four) hours as needed for pain 40 tablet 03/03/20 24 04/11/2 025 Discontin ued(Thera py completed ) clindamycin (CLEOCIN) 300 mg capsule 2 tablets PO prior to procedure and 1 tablet PO 6 hours after the procedure 3 capsule 2 05/26/19 25 025 Discontin ued(Patie nt Reported) Active Problems Problem Noted Date Diagnosed Date Trochanteric bursitis of right hip 05/26/2024 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 04/03/2024 Family history of colon cancer in father 024 History of colonic polyps 01/31/2024 Encounter [...] Primary osteoarthritis of right hip 02/12/2024 04/03/2024 Encounters Date Type Department Care Team Description 07/31/2024 11:45 AM CDT Office Visit [facility] [address] [place] [phone] Ailyn Marshall NP Trochanteric bursitis of right hip (Primary Dx); It band syndrome, right 06/16/2024 Orders Only [facility] [address] [place] [phone] Cristal Hunt PA Trochanteric bursitis of right hip (Primary Dx); 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 06/16/2024 Telephone [facility] [address] [place] [phone] Nelly Granger MA 05/26/2024 3:45 PM PHYSICIAN COMPENSATION ANALYST Office Visit [facility] [address] [place] [phone] Cristal Hunt PA Trochanteric bursitis of right hip (Primary Dx); 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 05/26/2024 7:54 AM PHYSICIAN COMPENSATION ANALYST - 05/26/2024 11:59 PM PHYSICIAN COMPENSATION ANALYST Hospital Encounter [facility] [address] [place] [address] [address], [place] [address] Discharge Disposition: Discharge to home or self care 05/26/2024 Orders Only [facility] [address] [place] [address] [address] [place] [address] Cristal Hunt PA Trochanteric bursitis of right hip (Primary Dx) from Last 3 Months Surgical History Surgery Date Site/Laterality Comments SHOULDER SURGERY Right Rotator Cuff Repair HYSTERECTOMY CARPAL TUNNEL RELEASE SPINE SURGERY Lumbar Laminectomy SINUS SURGERY TOTAL KNEE ARTHROPLASTY Bilateral RETINAL DETACHMENT SURGERY Right BREAST SURGERY Bilateral Breast Reduction COLONOSCOPY HIP SURGERY 02/20/2024 Right Medical History Medical History Date Comments Depression Osteoarthritis PONV (postoperative nausea and vomiting) GERD (gastroesophageal reflux disease) CKD (chronic kidney disease) HTN (hypertension) CHUCK (obstructive sleep apnea) Hypothyroid HLD (hyperlipidemia) Sinusitis Seasonal allergies Adenomatous colon polyp Vitamin D deficiency Family History Medical History Relation Name Comments Arthritis Father Family history of arthritis - (Added by TW Conv) Cancer Father Family history of malignant neoplasm - (Added by TW Conv) Colon cancer Father Diabetes Father Family history of diabetes mellitus - (Added by TW Conv) Heart disease Father Family history of cardiac disorder - (Added by TW Conv) Hypertension Father Family history of hypertension - (Added by TW Conv) Heart disease Mother Family history of cardiac disorder - (Added by TW Conv) Hypertension Mother Family history of hypertension - (Added by TW Conv) Kidney disease Mother Family histor y of kidney disease - (Added by TW Conv) Relation Name Status Comments Father Mother Social History Tobacco Use Types Packs/Day Years [...] on file Legal Sex Female 7:59 PM PHYSICIAN COMPENSATION ANALYST Gender Identity Not on file Sexual Orientation Not on file Obstetrics History Last Filed Vital Signs Vital Sign Reading Time Taken Comments Blood Pressure 137/66 07/31/2024 11:39 AM CDT Pulse 93 07/31/2024 11:39 AM CDT Temperature 36.7 C (98 F) 05/13/2024 9:42 AM PHYSICIAN COMPENSATION ANALYST Respiratory Rate 18 05/13/2024 9:42 AM PHYSICIAN COMPENSATION ANALYST Oxygen Saturation 98% 05/13/2024 9:42 AM PHYSICIAN COMPENSATION ANALYST Inhaled Oxygen Concentration - - Weight 82.6 kg (182 lb) 07/31/2024 11:39 AM CDT Height 149.9 cm (4' 11 ) 07/31/2024 11:39 AM CDT Body Mass Index 36.76 07/31/2024 11:39 AM CDT Plan of Treatment Health Maintenance Due Date Last Done Comments Depression Screening 1950 Hepatitis C Screening 1950 Hepatitis B Screening 1968 Well Visit 65+ 2013 Zoster Vaccine (3 of 3) 02/11/2020 12/17/2019, 04/03 Osteoporosis Screening-Bone Density Scan 02/21/2020 02/20/2018, 02/20/2018, 02/20/2018, Additional history exists Covid-19 Vaccine (2023-2 5 season) 2023 08/29/2021, 01/03/2021, 05/24/2020, Additional history exists Fall Risk Assessment 05/13/2025 05/13/2024 DTaP/Tdap/Td Vaccine (3 - Td or Tdap) 05/21/2032 05/21/2022, 03/28/2011 Pneumococcal vaccine 65+ Completed 019, 06/14/2015, 03/03/2014, Additional history exists Breast Cancer Screening-Mammogram Discontinued 01/09/2023, 01/09/2023, 06/15/2019, Additional history exists Influenza Vaccine Completed 12/18/2023, , 12/17/2019, Additional history exists Colon Cancer Screening-CT Colonography Discontinued 05/13/2024 Colon Cancer Screening-Colonoscopy Discontinued 05/13/2024 Colon Cancer Screening-DNA Stool Discontinued 05/13/19 Colon Cancer Screening-FIT Discontinued 05/13/2024 Colon Cancer Screening-FOBT Discontinued 05/13/2024 Colon Cancer Screening-Sigmoidoscopy Discontinued 05/13/2024 Colorectal Cancer Screening Discontinued Medical Devices Implanted Type Area Spanish Interpreter/Translator Device Identifier Shelf Expiration Date Model / Serial / Lot [employer] Liner Acetabular Hip Standard Emphasys Aox [id number] Polyethylene [id number] - [id number] Implanted:Qty: 1 on 02/19/2024 by Yosi Luna MD at [facility] Right: Hip [employer] [id number] 12/20/2028 [id number] / / [id number] [employer] Shell Acetabular Hip Porous 3 Hole Coated Emphasys 50mm Titanium [id number] - [id number] Implanted:Qty: 1 on 02/19/2024 by Yosi Luna MD at [facility] Right: Hip [employer] 12/20/2033 [id number] / / [id number] [employer] [place] 6.5mm 35mm Acetabular Cancellous Screw Bone Sterile 1217-35-500 - [id number] Implanted:Qty: 1 on 02/19/2024 by Yosi Luna MD at [facility] Right: Hip [employer] 10/19/2033 1217-35-500 / / [id number] [employer] [place] 6.5mm 25mm Acetabular Cancellous Screw Bone Sterile 1217--500 - [id number] Implanted:Qty: 1 on 02/19/2024 by Yosi Luna MD at [facility] Right: Hip [employer] 10/19/2033 1217-25-500 / / [id number] [employer] Actis Collar Hip 3 High Offset Stem Femoral [id number] - [id number] Implanted:Qty: 1 on 02/19/2024 by Yosi Luna MD at [facility] Right: Hip [employer] 08/19/2033 [id number] / / [id number] [employer] Articul/Markus 36mm Cementless Hip +5mm 04/04 Taper Head Femoral Latex Free [id number] - [id number] Implanted:Qty: 1 on 02/19/2024 by Yosi Luna MD at [facility] Right: Hip [employer] 10/19/2028 [id number] / / [id number] Procedures Procedure Name Priority Date/Time Associated Diagnosis Comments XR HIP RIGHT 2 OR 3 VIEWS Schedule Routine, Read Routine (OP Routine) 05/26/2024 3:32 PM PHYSICIAN COMPENSATION ANALYST Trochanteric bursitis of right hip COLONOSCOPY 05/13/2024 7:16 AM PHYSICIAN COMPENSATION ANALYST DIAGNOSTIC MAMMOGRAM BILATERAL W LEYLA Routine 06/03/2015 10:35 AM PHYSICIAN COMPENSATION ANALYST DEXA AXIAL SKELETON BONE DENSITY 1 OR MORE SITES Routine 06/03/2015 10:27 AM PHYSICIAN COMPENSATION ANALYST from Last 3 Months or Most Recently Relevant to Health Maintenance Results * XR Hip Right 2 or 3 Views (05/26/2024 3:32 PM PHYSICIAN COMPENSATION ANALYST) Anatomical Region Laterality Modality Lower Extremities, Hip, Pelvis Right D igital Radiography Narrative 05/26/2024 3:47 PM PHYSICIAN COMPENSATION ANALYST Radiographs taken of the right hip today reveal a total hip arthroplasty in appropriate position with no interval change from the time of surgery. Cristal HASTINGS IMG XR PROCEDURES Fin al Result * Colonoscopy (05/13/2024 7:16 AM PHYSICIAN COMPENSATION ANALYST) Anatomical Region Laterality Modality Other Narrative Procedure Note Sven Arana, - 05/13/2024 7:16 AM CST [facility] Patient Name: Kellee Cerna Procedure Date: 05/13/2024 7:16 AM Date of : 1950 Admit Type: Outpatient Age: 74 Gender: Female Attending MD: Sven Arana D.O. Room: [facility] ENDOSCOPY ROOM 3 Note Status: [...] and retrieved. Clips(MR conditional) were placed. Clip surveying teacher: Silent [employer]. - Diverticulosis in the left colon. Recommendation: [...] under direct vision. The Pediatric Colonoscope [id number]-[id number] was introducedthrough the anus and advanced to [...] clips were successfully placed (MR conditional). Clip surveying teacher: Silent Circle. Therewas no bleeding at the end of [...] 7:16 AM Procedure Code(s): --- Professional --- 03606, Colonoscopy, flexible; with removal of tumor(s), polyp(s), or other lesion(s) by snare technique --- Technical --- 32692, Colonoscopy, flexible; with removal of tumor(s), polyp(s), [...] perforation orabscess without bleeding CPT copyright 2020 [employer] [place] [employer]. All rights reserved. The codes documented in this report are preliminary and upon cosmetics and toiletries salesperson reviewmay be revised to meet current compliance requirements. Recognized by the [place] [employer] for promoting quality in endoscopy us Sven PrabhakarSahil Aldridgedarrin DO ENDOSCOPY PROCEDURES Final Res ult * DIAGNOSTIC MAMMOGRAM BILATERAL W LEYLA (06/03/2015 10:35 AM PHYSICIAN COMPENSATION ANALYST) Anatomical Region Laterality Modality Breast Bilateral Mammography 06/03/2015 10:3 5 AM PHYSICIAN COMPENSATION ANALYST Narrative 06/03/2015 3:02 PM PHYSICIAN COMPENSATION ANALYST MAMMOGRAM PERFORMED BY; DIEUDONNE SCREENING MAMM W LEYLA BI Acc#: [id number] Screening Mamm Bi Acc#: [id number] DATE OF EXAM: Jun 03 2015 `ADDENDUM PLEASE SEE BELOW CLINICAL HISTORY: Screening mammogram. History of breast reduction. RESULT: A screening mammogram with tomosynthesis was performed. The patient reports prior outside studies at [facility]; however, no prior studies are presently [...] ADDITIONAL IMAGING EVALUATION. `ADDENDUM Outside mammograms from [place] performed 09/24/11 and 04/17/10 are now available. [...] SUBRAMANIAN Requesting Attending Fax: -- Attending ID: [id number] Requesting ID: [id number] Report To 1 ID: [id number] Report To 1 Name: KATHLEEN SUBRAMANIAN Report To 1 FAX: -- NextGen Order #: Procedure Note Provider, MD Seymour - 08/10/2016 MAMMOGRAM PERFORMED BY; SCREENING MAMM W LEYLA BI Acc#: [id number] Screening Mamm Bi Acc#: [id number] DATE OF EXAM: Jun 03 2015 `ADDENDUM PLEASE SEEBELOW CLINICAL HISTORY: Screening mammogram. History of breast reduction. RESULT: A screening mammogram with tomosynthesis was performed. The patientreports prior outside studies at [facility]; however, no prior studiesare presently available [...] Digitaltechnology was employed plus computer-aided detection software (Rangespan) wasutilized in interpretation of these images. This facility utilizes [employer] system to notify patients of yearly mammograms. IMPRESSION: FOCAL ASYMMETRY DEEP IN THE LEFT CENTRAL BREAST. CORRELATION WITH OUTSIDEMAMMOGRAMS ARE RECOMMENDED. BI-RADS CATEGORY 0 - NEED ADDITIONAL IMAGINGEVALUATION. `[facility] are now available. Since [...] SUBRAMANIAN Requesting Attending Fax: -- Attending ID: [id number] Requesting ID: [id number] Report To 1 ID: [id number] Report To 1 Name: KATHLEEN SUBRAMANIAN Report To 1 FAX: -- NextGen Order #: us Historical Provider MD GIBBS MAMMO PROCEDURES [place] [facility] Result * Dexa Axial Skeleton Bone Density 1 or 2 Site (06/03/2015 10:27 AM PHYSICIAN COMPENSATION ANALYST) Anatomical Region Laterality Modality Body N/A Radiographic Elda ging 06/03/2015 10:2 7 AM PHYSICIAN COMPENSATION ANALYST Narrative 06/03/2015 11:37 AM PHYSICIAN COMPENSATION ANALYST DEXA Bone Density Axial Acc#: [id number] DATE OF EXAM: Jun 03 2015 CLINICAL [...] SUBRAMANIAN Requesting Attending Fax: -- Attending ID: [id number] Requesting ID: [id number] Report To 1 ID: [id number] Report To 1 Name: KATHLEEN SUBRAMANIAN Report To 1 FAX: -- NextGen Order #: Procedure Note Provider, MD Seymour - 08/10/2016 DEXA Bone Density Axial Acc#: [id number] DATE OF EXAM: Jun 03 2015 CLINICAL [...] Attending: KATHLEEN SUBRAMANIAN Requesting: DR KATHLEEN SUBRAMANIAN M Requesting Attending Fax: -- Attending ID: [id number] Requesting ID: [id number] Report To 1 ID: [id number] Report To 1 Name: KATHLEEN SUBRAMANIAN Report To 1 FAX: -- NextGen Order #: Historical Provider MD GIBBS DXA PROCEDURES Final Result from Last 3 Months or Most Recently Relevant to Health Maintenance Insurance [facility]ICARE [facility] MEDICARE [facility] MEDICARE BLUE CROSS MEDICARE SUPPLEMENT Advance Directives For more information, please contact: [phone] * Full Code (Latest Code Status on File) Date Activated Date Inactivated Comments 05/13/2024 7:10 AM 05/13/2024 1:52 PM * Full Code Date Activated Date Inactivated Comments 05/13/2024 7:09 AM 05/13/2024 7:10 AM * Full Code Date Activated Date Inactivated Comments 02/19/2024 4:13 PM 02/20/2024 3:44 PM Care Teams Tool Shaper Setup Operator Relationship Specialty Start Date End Date Kathleen Subramanian MD PCP - General 10/02/16 Yosi Luna MD [address] [place] [address] DR CORR[address]ES [address] [place] [address] Surgeon Orthopedic Surgery 02/20/24
--- OUTSIDE RECORDS SUMMARY | 2024-08-19 14:52 | XMS_ITS | Encounter Summary ---
Author Organization [facility] Health Address [address] [facility] [place] [address] Care Team Providers Care Nitrocellulose Maker Name Role Phone Hugh Sierra MD Unavailable [phone] Adam Wiggins MD Primary Care Provider [phone] Encounter Details Date Type Department Care Team (Late st Contact Info) Description 03/26/2022 Lab Requisition [facility] Care Pathology Lab [address] [place] [address] Edison Bustamante MD [address] [place] [id number] Anemia, unspecified Social History Tobacco Use Types Packs/Day [...] Procedure Name Priority Date/Time Associated Diagnosis Comments FLOW CYTOMETRY BONE MARROW Routine 03/26/2022 8:17 AM MARRIAGE AND FAMILY COUNSELOR Anemia, unspecified documented in this encounter Results * FLOW CYTOMETRY BONE MARROW (03/26/2022 8:17 AM MARRIAGE AND FAMILY COUNSELOR) Case Report Flow Cytometry Case: [id number] Authorizing Provider: Edison Bustamante MD Collected: 03/26/2022 08:17 AM Ordering Location: [facility] Pathology Lab Received: 03/26/2022 01:15 PM Pathologist: Tony Talley MD Specimen: Bone Marrow 03/26/2022 3:50 PM [facility] Final Diagnosis Bone marrow, flow cytometry: - No clonal B-cell or increased blast population detected 03/26/2022 3:50 PM [facility] Flow Cytometry Interpretation The bone marrow specimen has a viability of 93%. The lymphocyte, dim CD45, monocyte, and granulocyte viveros are normal in relative proportion. Within the lymphocyte gate, there is no monotypic B-cell population identified (kappa: lambda ratio = 1:1). There is no expanded T-cell population seen. By CD34, 4% of all events analyzed are blasts. A bone marrow aspirate smear prepared from the flow cytometry specimen is reviewed for quality assistant purposes. 03/26/2022 3:50 PM [facility] Flow Cytometry Results Differential Result Comment Flow Cell Count /uL 36,800 Total Viability % 93.0 Lymphocytes % 35 Dim CD45 Region % 8 Monocytes % 15 Granulocytes % 42 03/26/2022 3:50 PM [facility] Reason for test Anemia, unspecified 285.9 03/26/2022 3:50 PM [facility] Client Specimen ID # [id number] 03/26/2022 3:50 PM [facility] Number of markers 10 were performed. A-2 Flow CD10 A-3 Flow CD13 A-5 Flow CD20 A-1 Flow CD5 A-4 Flow CD19 A-6 Flow CD33 A-7 Flow CD34 A-8 Flow CD45 A-9 Acme+CD19+ A-10 Lambda+CD19+ 03/26/2022 3:50 PM [facility] Disclaimer Test performed at [facility], [address] [place] [address], [facility]. *The established laboratory minimum viability is 70%. Values below the minimum may result in the failure to find an abnormal population of cells. This test was developed and its performance characteristics determined by the Flow Cytometry Laboratory. It has not been cleared by the [place] Food and Drug Administration (FDA). The FDA has determined that such clearance or approval is not necessary. This test is used for clinical purposes. It should not be regarded as investigational or for research. This laboratory is regulated under the Clinical Laboratory Improvement Amendments of 1998 (CLIA) as a qualified to perform high complexity clinical testing. 03/26/2022 3:50 PM [facility] Embedded Images 3:50 PM [facility] Pathology/Cytolo gy BONE MARROW SPECIMEN / Unknown 03/26/2022 8:17 AM MARRIAGE AND FAMILY COUNSELOR 03/26/2022 1:15 PM MARRIAGE AND FAMILY COUNSELOR Edison Bustamante MD LAB - PATHOLOGY/CYTOLOGY ORD ERABLES Final Result [facility] PATHOLOGY LAB [address] [place] [address]. [address] [phone] documented in this encounter Visit Diagnoses Diagnosis Anemia, unspecified documented in this encounter Care Teams Nitrocellulose Maker Relationship Specialty [place] [id number] [place] [address] PCP - General Internal Medicine 03/06/13 [place] [address] [place] [address] Orthopedic Surgery 03/06/13 documented as of this encounter
--- OUTSIDE RECORDS SUMMARY | 2024-08-19 14:52 | XMS_ITS | Clinical Summary ---
Author Organization [facility] Address [address] [place] [address] Care Team Providers Care Enterprise Systems Manager Name Role Phone Adam Wiggins MD Primary Care Provider [phone] Allergies Active Allergy Reactions Criticality Noted Date Comments Azithromycin Diarrhea,Abdominal Pain Low 01/05/2009 Other reaction(s): Stomach upset; Diarrhea Nebivolol Diarrhea Low 01/16/2019 Nickel Unknown 08/11/2013 RASH --DR. LE IS AWARE RASH --DR. LE IS AWARE RASH --DR. LE IS AWARE Other reaction(s): Unknown RASH --DR. LE IS AWARE RASH --DR. LE IS AWARE RASH --DR. LE IS AWARE RASH --DR. LE IS AWARE RASH --DR. LE IS AWARE RASH --DR. LE IS AWARE RASH --DR. LE IS AWARE RASH --DR. LE IS AWARE Penicillins Hives,Rash High 02/10/2007 Other reaction(s): Rash; Hives Medications multivitamins-min erals-lutein (CENTRUM SILVER) Tablet Take 1 Tab by mouth daily. Active L. acidophilus/pecti n, citrus (ACIDOPHILUS PROBIOTIC ORAL) Take 1 Tablet by mouth. Active azelastine (ASTELIN) 137 mcg/actuation nasal spray Administer 2 Sprays in each nostril 2 times daily. 30 mL 2 02/02/20 Active famotidine (PEPCID) 20 mg tablet Take 1 Tablet (20 mg) by mouth 2 times daily. 180 Tablet 3 07/07/19 22 Active meclizine (ANTIVERT) 25 mg tablet Take 1 Tablet (25 mg) by mouth 2 times daily as needed for Dizziness. 60 Tablet 2 01/27/20 22 Active ferrous sulfate 325 mg (65 mg iron) tablet Take 1 Tablet by mouth daily. 07/06/19 23 Active cyclobenzaprine (FLEXERIL) 10 mg tablet Take 10 mg by mouth 3 times daily. 07/06/19 23 Active tobramycin (TOBREX) 0.3 % solution Administer 1 Drop in right eye every 4 hours. 5 mL 1 10/06/19 23 Active conjugated estrogens (PREMARIN) 0.625 mg/gram vaginal cream Insert 0.5 Grams vaginally see administration instructions. Use 0.5 g, vaginally , 3 x per week 42.5 Gram 3 01/22/20 23 Active mirabegron (Myrbetriq) 50 mg Extended Release 24 hour tablet TAKE 1 TABLET BY MOUTH EVERY DAY 90 Tablet 3 04/29/19 24 Active estradioL (Estrace) 0.01% (0.1 mg/g) vaginal cream Insert 0.5 Grams vaginally daily. Use 2-3 x per week. 0.5 mgInsert vaginally daily. Use 2-3 x per week. 0.5 mg 42.5 Gram 10 06/19/19 24 Active DULoxetine (CYMBALTA) 60 mg Capsule, Delayed Release(E.C.)Mariana cations:Other depression TAKE 1 CAPSULE EVERY DAY 100 Capsule 3 12/20/19 24 Active Synthroid 137 mcg tabletIndications :Other specified hypothyroidism take 1 tablet every day 90 Tablet 3 01/27/20 24 Active fluticasone propionate (FLONASE) 50 mcg/spray [place], Suspension nasal inhaler use 2 sprays in each nostril every day 48 Gram 3 01/27/20 24 Active olmesartan (BENICAR) 40 mg tabletIndications :Primary hypertension take 1 tablet every day 90 Tablet 3 01/27/20 24 Active montelukast (SINGULAIR) 10 mg tablet take 1 tablet every day 90 Tablet 3 01/27/20 24 Active omeprazole (PriLOSEC) 40 mg Capsule, Delayed Release(E.C.) TAKE 1 CAPSULE EVERY DAY (SUBSTITUTED FOR PRILOSEC) 90 Capsule 3 01/27/20 24 Active amLODIPine (NORVASC) 2.5 mg tabletIndications :Primary hypertension take 1 tablet at bedtime 90 Tablet 3 01/27/20 24 Active azithromycin (ZITHROMAX) 250 mg tablet TAKE 2 TABLETS BY MOUTH ON DAY 1, AND THEN TAKE 1 TABLET BY MOUTH ONCE A DAY ON DAY 2 THROUGH DAY 5 01/09/20 24 Active ondansetron (ZOFRAN ODT) 4 mg Tablet, Rapid Dissolve DISSOLVE 1 TABLET IN MOUTH EVERY 6 HOURS NEEDED 11/15/19 24 Active triamcinolone acetonide (KENALOG) 0.1 % OintmentIndicatio ns:Rash Apply to affected area 2 times daily. 80 Gram 1 01/29/20 24 Active pregabalin (Lyrica) 75 mg CapsuleIndication s:Avascular necrosis of bone of hip, right (CMS/HCC) Take 1 Capsule (75 mg) by mouth daily at bedtime. 30 Capsule 3 02/12/20 24 Active Additional Information Patient not taking.Reported on 06/01/2024 gabapentin (NEURONTIN) 400 mg capsule Take 1 Capsule (400 mg) by mouth 4 times daily. 360 Capsule 3 02/15/20 24 Active temazepam (RESTORIL) 30 mg capsuleIndication s:Other insomnia TAKE 1 CAPSULE BY MOUTH AT BEDTIME NEEDED FOR INSOMNIA 30 Capsule 3 02/18/20 24 Active pravastatin (PRAVACHOL) 10 mg tabletIndications :Other hyperlipidemia TAKE 1 TABLET AT BEDTIME 90 Tablet 3 04/08/20 24 Active buPROPion HCL (WELLBUTRIN SR) 100 mg Sustained Release 12 hour tabletIndications :Other depression TAKE 1 TABLET TWICE DAILY 180 Tablet 3 04/08/20 24 Active Additional Information Patient not taking.Reported on 06/01/2024 glycopyrrolate (ROBINUL) 2 mg Tablet TAKE 1 TABLET TWICE DAILY 180 Tablet 3 06/21/19 25 Active HYDROcodone-aceta minophen (NORCO) 5-325 mg tabletIndications :Lumbar radiculopathy Take 1 Tablet by mouth every 4 hours as needed for Pain, Moderate. Max Daily Amount: 6 Tablets 42 Tablet 07/21/19 25 Active temazepam (RESTORIL) 30 mg capsuleIndication s:Other insomnia TAKE 1 CAPSULE BY MOUTH NIGHTLY NEEDED FOR INSOMNIA. DX INSOMNIA, [place] FILL EARLY DUE TO TRAVEL 30 Capsule 3 08/05/19 25 Active temazepam (RESTORIL) 30 mg capsuleIndication s:Other insomnia TAKE 1 CAPSULE BY MOUTH NIGHTLY NEEDED FOR INSOMNIA. DX INSOMNIA, [place] FILL EARLY DUE TO TRAVEL 30 Capsule 3 04/13/20 24 025 Disconti nued(Brandon butler) Active Problems Patient Care Coordination No te Formatting of this note migh t be different from the original. 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 09/04/2021 Depression, major, recurrent, mild 02/20/2019 Absence of bladder continence 10/14/2018 Disorder of rotator cuff 05/03/2016 Urge incontinence 08/17/2015 Sleep apnea 09/03/2014 Essential hypertension 11/10/2013 S/P total knee replacement 09/22/2013 Hypothyroidism 02/10/2007 Other and unspecified hormon es and synthetic substitutes causing adverse effect in therapeutic use 02/10/2007 Depressive state 02/10/2007 Backache 02/10/2007 Chronic maxillary sinusitis 02/10/2007 Insomnia 02/10/2007 Resolved Problems Problem Noted Date Diagnosed Date Resolved Date Lower abdominal pain 06/17/2015 019 Rash and other nonspecific skin eruption 02/10/2007 07/19/2007 Breast screening, unspecified 02/10/2007 04/05/2010 Premenopausal menorrhagia 02/10/2007 Encounters Date Type Department Care Team Description 08/03/2024 Refill [facility] [place] [address] [place] [address] Adam Wiggins MD Other insomnia [facility] [place] [address] [place] [address] Adam Wiggins MD Lumbar radiculopathy 07/14/2024 Results Follow-Up [facility] at the [facility] [address] [place] [address] Dolores Long RT MULTI CANCER EARLY DETECTION 07/08/2024 External Device Data STL ABSTRACTION Provider, Abstract 07/03/2024 11:13 AM CDT - 07/03/2024 11:59 PM CDT Hospital Encounter [facility] [address] [place] [address] Helena Mccray, KIMBERLY Cancer screening Discharge Disposition: Home or Self Care 06/27/2024 External Device Data STL ABSTRACTION Provider, Abstract 06/27/2024 External Device Data STL ABSTRACTION Provider, Abstract 06/25/2024 9:00 AM ANGLE DOZER OPERATOR Telephone [facility] the [facility] [address] [place] [address] Linda Gaitan RN MCEAndre 06/24/2024 External Device Data STL ABSTRACTION Provider, Abstract 06/20/2024 Refill [facility] Primary [facility] [address] [place] [address] Di Ruiz FNP 06/12/2024 Orders Only [facility] [address] [place] [address] Provider, Abstract 06/12/2024 Abstract [facility] [address] [place] [address] Adam Wiggins MD 06/10/2024 External Device Data STL ABSTRACTION Provider, Abstract 06/10/2024 Telephone [facility] at the [facility] [address] [place] [address] Helena Mccray, KIMBERLY RIZZO Referral (Spoke to patient.) 06/02/2024 Telephone [facility] at the [facility] [address] [place] [address] Helena Mccray NP [facility] Referral (Left VM with drop[employer]io central team's telephone number.) 06/01/2024 1:40 PM ANGLE DOZER OPERATOR Office Visit [facility] Care [address] [place] [address] Adam Wiggins MD Other specified hypothyroidism (Primary Dx); Stage 3 chronic kidney disease, unspecified whether stage 3a or 3b CKD (CMS/HCC); Other hyperlipidemia; Iron deficiency anemia, unspecified iron deficiency anemia type; Recurrent major depressive disorder, remission status unspecified; Visit for screening mammogram; Menopause; Lumbar radiculopathy; Vitamin D deficiency; Prediabetes; Essential hypertension 06/01/2024 Abstract [facility] Care [facility] [address] [place] [address] [address] [place] [address] Adam Wiggins MD from Last 3 Months Immunizations Immunization Administration Dates Next Due (ADACEL/BOOSTRIX)(10 YR UP) TDAP VACCINE, 0.5ML, IM 05/21/2022,03/28/2011 (AREXVY)(60 YR UP) RSV, ISAIAS MBINANT, PROTEIN SUBUNIT RSVPREF, ADJUVANT RECONSTITUTED, 0.5 ML, PF 12/17/2022 (COMIRNATY)(12 YR UP) COVID- 19 VACCINE, MRNA, SPIKE PROTEIN, LNP, JOSHUA(PF) 30 MCG/0.3 ML IM SUSP 01/10/2023 (PFIZER JOSHUA)(12 YR UP PRIMA RY SERIES) COVID-19 VACCINE - EMERGENCY USE AUTHORIZATION, MRNA, JOSHUA(PF) 30 MCG/0.3 ML IM SUSP 12/22/2023 (PNEUMOVAX 23)(50 YRS UP) PN EUMOCOCCAL POLYSACCHARIDE (PPV23) 0.5 ML, IM 12/26/2018,03/03/2014 (PREVNAR 13)(6 WKS UP) PNEUM OCOCCAL CONJUGATE (PCV13) 0.5 ML, IM 06/14/2015 (SHINGRIX)(50 YRS UP) ZOSTER VACCINE RECOMBINANT, 0.5 ML, IM 12/17/2019 (SPIKEVAX) (12 YRS UP PRIMAR Y SERIES) COVID-19 VACCINE - MRNA-1273(PF) 100 MCG/0.5 ML IM SUSP 08/29/2021,01/03/2021,05/24/2020,04/26 Hepatitis A Vaccine 01/27/2016 INFLUENZA VACCINE HIGH DOSE QUADRIVALENT 65 YR UP PF IM 12/18/2023,12/14/2022,12/12/2021,12/16 Influenza Seasonal Unspecifi ed Formulation IM 12/20/2020,01/29/2016,02/04/2014,03/05,04/03/2012,02/20/2011,01/20/2010 ,01/21/2008 Influenza Vaccine High Dose 65+ Yrs IM 0 12/17/2019,12/17/2019,01/14/2019,02/03,12/19/2016,12/19/2016,01/27/2016 ,02/12/2015,01/28/2014 Influenza Vaccine Split 3+ Yrs IM 02/07/2007 Pneumococcal Polysaccharide Vacc 23-alexy IM SCHIP 03/03/2014 Pneumococcal conjugate, unsp ecified formulation 02/20/2014 Skin Test TB 01/31/2015,02/18/2014,03/28/2011 Zoster Vaccine Live SQ 04/03/2012 Family History Medical History Relation Name Comments Healthy Daughter 1 Healthy Daughter 2 Healthy Daughter 3 Cancer Father Kellee Read Colon Colon Cancer Father Kellee Read Diabetes Father Kellee Read Heart Disease Father Kellee Read Hypertension Father Kellee Read Skin Cancer Father Kellee Read Diabetes Maternal Grandmother Jessica Gibson Anemia Mother Sandrine Read Pernicious Heart Disease Mother Sandrine Read Hypertension Mother Sandrine Read Relation Name Status Comments Daughter 1 Alive Daughter 2 Alive Daughter 3 Alive Father Kellee Read Alive Maternal Grandmother Jessica Gibson Alive Mother Sandrine Read Alive Social History Tobacco Use Types Packs/Day Years Used Date Smoking Tobacco: Never Passive Smoke Exposure: Never Smokeless Tobacco: Never Tobacco Cessation:Counseling Given: No Alcohol Use Standard Drinks/Week Comments Not Currently [...] often do you attend chur ch or episcopalian services? Never 02/26/2019 Do you belong to any clubs o r organizations such as jewish groups, unions, fraternal or athletic groups, or [...] on file Legal Sex Female 5:28 AM ANGLE DOZER OPERATOR Gender Identity Not on file Sexual Orientation Straight 02/05/2024 6: 22 PM CDT Occupation Industry Job Start Date Job End Date RETIRED Not on file Not on file Not on file Last Filed Vital Signs Vital Sign Reading Time Taken Comments Blood Pressure 134/78 06/01/2024 1:14 PM ANGLE DOZER OPERATOR Pulse 78 06/01/2024 1:14 PM ANGLE DOZER OPERATOR Temperature 36.9 C (98.4 F) 06/01/2024 1:14 PM ANGLE DOZER OPERATOR Respiratory Rate 19 12/14/2022 10:19 AM CDT Oxygen Saturation 97% 06/01/2024 1:14 PM ANGLE DOZER OPERATOR Inhaled Oxygen Concentration - - Weight 81.2 kg (179 lb) 06/01/2024 1:14 PM ANGLE DOZER OPERATOR Height 152.4 cm (5') 06/01/2024 1:14 PM ANGLE DOZER OPERATOR Body Mass Index 34.96 06/01/2024 1:14 PM ANGLE DOZER OPERATOR Plan of Treatment Upcoming Encounters Date Type Department Care Team (Late st Contact Info) Description 11/13/2024 11:20 AM CDT Office Visit [facility] Primary Care [address] [place] [address] Adam Wiggins MD [address] [facility] [address] [place] [address] Health Maintenance Due Date Last Done Comments ZOSTER VACCINE (3 of 3) 02/11/2020 12/17/2019, 04/03 OSTEOPOROSIS SCREENING 02/20/2023 8, 02/20/2018, 02/20/2018, Additional history exists COVID-19 Vaccine (2023-2 5 season) 2024 12/22/2023, 01/10/2023, 08/29/2021, Additional history exists Traditional Medicare (ACO) A nnual Wellness Visit 11/29/2024 11/29/2023, 07/06/2021, 07/12/2020, Additional history exists DTAP/TDAP/TD VACCINES (3 - T d or Tdap) 05/21/2032 05/21/2022, 03/28/2011 PNEUMOCOCCAL VACCINE 50+ YEARS Completed 0 12/26/2018, 06/14/2015, 03/03/2014, Additional history exists RSV VACCINE (60+ or ) Completed 12/17/2022 INFLUENZA VACCINE Completed 12/18/2023, , 12/14/2022, Additional history exists COLORECTAL SCREENING Discontinued 05/13/2024, 05/13/2024, 05/13/2024, Additional history exists Colorectal Cancer Screening Discontinued FIT-DNA Q 3 years Discontinued FIT/FOBT Q 1 year Discontinued Flex Sig/CT Colonography Q 5 years Discontinued Medical Devices Implanted Type Area Supervisor Dry Cell Assembly Device Identifier Shelf Expiration Date Model / Serial / Lot Sling Obtryx2 Trnsobt Mid-Uret Crv [id number] - [id number] Implanted:Qty: 1 on 10/17/2021 by Le Denny MD at [facility] Sling N/A: Vagina [employer]- UROLOGY/MANAGER OF INTERNAL AUDIT [id number] 08/20/2024 [id number] 10 / / [id number] Bilateral Knee Replacements Bladder Sling Procedures Procedure Name Priority Date/Time Associated Diagnosis Comments MULTI CANCER EARLY DETECTION Routine 07/14/2024 12:23 PM CDT Cancer screening URINALYSIS WITH REFLEX CULTURE Routine 05/29/2024 10:33 AM ANGLE DOZER OPERATOR Recurrent UTI VITAMIN D 25 HYDROXY Routine 05/29/2024 10:29 AM ANGLE DOZER OPERATOR Vitamin D deficiency VITAMIN B12 LEVEL Routine 05/29/2024 10: 29 AM ANGLE DOZER OPERATOR Other specified hypothyroidism TSH Routine 05/29/2024 10:29 AM ANGLE DOZER OPERATOR Other hyperlipidemia LIPID PANEL Routine 05/29/2024 10:29 AM ANGLE DOZER OPERATOR Other hyperlipidemia HEMOGLOBIN A1C Routine 05/29/2024 10:29 AM ANGLE DOZER OPERATOR Prediabetes COMPREHENSIVE METABOLIC PANEL Routine 05/29/2024 10:29 AM ANGLE DOZER OPERATOR Other hyperlipidemia CBC WITH DIFFERENTIAL Routine 05/29/2024 10:29 AM ANGLE DOZER OPERATOR Iron deficiency anemia, unspecified iron deficiency anemia type ENDOSCOPY, COLON, SCREENING Routine 05/13/2024 4:32 PM ANGLE DOZER OPERATOR XR DEXA BONE DENSITY AXIAL 1 OR MORE SITES Routine 02/20/2018 Menopause from Last 3 Months or Most Recently Relevant to Health Maintenance Results * MULTI CANCER EARLY DETECTION (07/14/2024 12:23 PM CDT) [facility] SIGNAL NO CANCER SIGNAL DETECTED GRAIL Comment:The Galleri test res ults report PDF document is the official source of the test result and contains important information regarding the Galleri test and the patient's test results. Please read the official report for complete results. Blood us David Lambert MD CHEMISTRY ORDERABLES Final Re sult [facility] #[id number] [address] [place] [address] * URINALYSIS WITH REFLEX CULTURE (05/29/2024 10:33 AM ANGLE DOZER OPERATOR) COLOR UA YELLOW YELLOW [facility] CLARITY UA CLEAR CLEAR [facility] SPECIFIC GRAVITY UA 1.010 1.001 - 1.035 [facility] [place] PH UA 5.5 5.0 - 8.0 [facility] [place] GLUCOSE UA NEGATIVE NEGATIVE [facility] [place] BILIRUBIN UA NEGATIVE NEGATIVE [facility] [place] KETONES UA NEGATIVE NEGATIVE [facility] [place] BLOOD UA NEGATIVE NEGATIVE [facility] [place] PROTEIN UA NEGATIVE NEGATIVE [facility] [place] NITRITE UA NEGATIVE NEGATIVE [facility] [place] LEUKOCYTE ESTERASE UA NEGATIVE NEGATIVE [facility] WBC UA NONE SEEN < OR = 5 /HPF [facility] RBC UA NONE SEEN < OR = 2 /HPF [facility] EPITHELIAL CELLS, URINE 0-5 < OR = 5 /HPF [facility] BACTERIA UA NONE SEEN NONE SEEN /HPF [facility] HYALINE CAST NONE SEEN NONE SEEN /LPF [facility] URINE NOTE [facility] Comment: This urine was analyzed for the presence of WBC, RBC, bacteria, casts, and other formed elements. Only those elements seen were reported. URINE CULTURE [facility] Comment: NO CULTURE INDICATED Test Performed at: [place] [address] [place] [address] Moi Allen Urine URINE SPECIMEN OBTAINED BY CLEAN CATCH PROCEDURE / Unknown 05/29/2024 10:33 AM ANGLE DOZER OPERATOR 05/29/2024 10:33 AM ANGLE DOZER OPERATOR us Adam Wiggins MD URINE ORDERABLES Final Result [facility] [phone] [facility] [place] [address] [place] [address] * (ABNORMAL) CBC WITH DIFFERENTIAL (05/29/2024 10:29 AM ANGLE DOZER OPERATOR) WBC 7.2 3.8 - 10.8 Thousand/u L [facility] RBC 4.18 3.80 - 5.10 Million/uL [facility] HEMOGLOBIN 12.5 11.7 - 15.5 g/dL [facility] HEMATOCRIT 39.4 35.0 - 45.0 % [facility] MCV 94.3 80.0 - 100.0 fL [facility] MCH 29.9 27.0 - 33.0 pg [facility] MCHC 31.7(L) 32.0 - 36.0 g/dL [facility] Comment: For adults, a slight decrease in the calculated MCHC value (in the range of 30 to 32 g/dL) is most likely not clinically significant; however, it should be interpreted with caution in correlation with other red cell parameters and the patient's clinical condition. RDW 11.5 11.0 - 15.0 % [facility] PLATELETS 373 140 - 400 Thousand/u L [facility] MPV 11.6 7.5 - 12.5 fL [facility] NEUTROPHIL ABSOLUTE 4,133 1,500 - 7,800 cells/uL [facility] LYMPHOCYTE ABSOLUTE 2,153 850 - 3,900 cells/uL [facility] MONOCYTE ABSOLUTE 540 200 - 950 cells/uL [facility] EOSINOPHIL ABSOLUTE 324 15 - 500 cells/uL [facility] BASOPHILS ABSOLUTE 50 0 - 200 cells/uL [facility] NEUTROPHIL 57.4 % [facility] LYMPHOCYTES 29.9 % [facility] MONOCYTE 7.5 % [facility] EOSINOPHILS 4.5 % [facility] BASOPHILS 0.7 % [facility] Comment: FASTING:YES FASTING: YES Test Performed at: [facility] [address] [address] [address] Moi Allen MD Blood 05/29/2024 10:2 9 AM ANGLE DOZER OPERATOR 05/29/2024 10:32 AM ANGLE DOZER OPERATOR Adam Wiggins MD HEMATOLOGY ORDERABLES Final R esult [facility] [phone] [facility] [address] [place] [address] * (ABNORMAL) VITAMIN D 25 HYDROXY (05/29/2024 10:29 AM ANGLE DOZER OPERATOR) VITAMIN D, 25 OH, TOTAL 25(L) 30 - 100 ng/mL [facility] Comment: Vitamin D Status 25-OH Vitamin D: Deficiency: <20 ng/mL Insufficiency: 20 - 29 ng/mL Optimal: > or = 30 ng/mL For 25-OH Vitamin D testing on patients on D2-supplementation and patients for whom quantitation of D2 and D3 fractions is required, the Quest[facility]ure[facility](TM) 25-OH VIT D, (D2,D3), LC/MS/MS is recommended: order code 02834 (patients >2yrs). See Note 1 Note 1 For additional information, please refer to http://education.mygola/faq/KKA147 (This link is being provided for informational/ educational purposes only.) FASTING:YES FASTING: YES Test Performed at: [facility] [address], [place] [address] Moi Allen MD Blood 05/29/2024 10:2 9 AM ANGLE DOZER OPERATOR 05/29/2024 10:32 AM ANGLE DOZER OPERATOR us Adam Wiggins MD CHEMISTRY ORDERABLES Final Re sult [facility] [phone] [facility] [address] [place] [address] * (ABNORMAL) TSH (05/29/2024 10:29 AM ANGLE DOZER OPERATOR) TSH 0.03(L) 0.40 - 4.50 mIU/L [facility] Comment: FASTING:YES FASTING: YES Test Performed at: [facility] [address], [place] [address] Moi Allen MD Blood 05/29/2024 10:2 9 AM ANGLE DOZER OPERATOR 05/29/2024 10:32 AM ANGLE DOZER OPERATOR Adam Wiggins MD CHEMISTRY ORDERABLES Final Re sult [facility] [phone] [facility] [address] [place] [address] * (ABNORMAL) HEMOGLOBIN A1C (05/29/2024 10:29 AM ANGLE DOZER OPERATOR) HEMOGLOBIN A1C 5.8(H) <5.7 % of total Hgb [facility] Comment: For someone without known diabetes, a hemoglobin A1c value between 5.7% and 6.4% is consistent with prediabetes and should be confirmed with a follow-up test. For someone with known diabetes, a value <7% indicates that their diabetes is well controlled. A1c targets should be individualized based on duration of diabetes, age, comorbid conditions, and other considerations. This assay result is consistent with an increased risk of diabetes. Currently, no consensus exists regarding use of hemoglobin A1c for diagnosis of diabetes for children. ESTIMATED AVERAGE GLUCOSE (MG/DL) 120 mg/dL [facility] ESTIMATED AVERAGE GLUCOSE (MMOL/L) 6.6 mmol/L [facility] Comment: FASTING:YES FASTING: YES Test Performed at: [place] [address] [address] [facility] Blood 05/29/2024 10:2 9 AM ANGLE DOZER OPERATOR 05/29/2024 10:32 AM ANGLE DOZER OPERATOR Adam Wiggins MD CHEMISTRY ORDERABLES Final Re sult [facility] [phone] [facility] [place] [id number] [address] * VITAMIN B12 LEVEL (05/29/2024 10:29 AM ANGLE DOZER OPERATOR) VITAMIN B12 419 200 - 1100 pg/mL [facility] Comment: Test Performed at: [facility] [address] [place] [address] Moi Allen MD Blood 05/29/2024 10:2 9 AM ANGLE DOZER OPERATOR 05/29/2024 10:32 AM ANGLE DOZER OPERATOR us Adam Wiggins MD CHEMISTRY ORDERABLES Final Re sult [facility] [phone] [facility] [address] [place] [address] * (ABNORMAL) LIPID PANEL (05/29/2024 10:29 AM ANGLE DOZER OPERATOR) CHOLESTEROL 220(H) <200 mg/dL [facility] HDL 85 > OR = 50 mg/dL [facility] TRIGLYCERIDE 99 <150 mg/dL [facility] LDL CALCULATED 114(H) mg/dL (calc) [facility] Comment: Reference range: <100 Desirable range <100 mg/dL for primary prevention; <70 mg/dL for patients with CHD or diabetic patients with > or = 2 CHD risk factors. LDL-C is now calculated using the Tj-Uplliam calculation, which is a validated novel method providing better accuracy than the Friedewald equation in the estimation of LDL-C. Tj SS et al. JIGNA. 2013;310(19): 1157-7141 (http://education.mygola/faq/TEG445) CHOL/HDL RATIO 2.6 <5.0 (calc) [facility] NON-HDL CHOLESTEROL 135(H) <130 mg/dL (calc) [facility] Comment: For patients with diabetes plus 1 major ASCVD risk factor, treating to a non-HDL-C goal of <100 mg/dL (LDL-C of <70 mg/dL) is considered a therapeutic option. Test Performed at: [facility] [address] [facility] [place] [address] Moi Allen MD Blood 05/29/2024 10:2 9 AM ANGLE DOZER OPERATOR 05/29/2024 10:32 AM ANGLE DOZER OPERATOR us Adam Wiggins MD CHEMISTRY ORDERABLES Final Re sult [facility] [phone] [facility] [address] [place] [address] * COMPREHENSIVE METABOLIC PANEL (05/29/2024 10:29 AM ANGLE DOZER OPERATOR) GLUCOSE 83 65 - 99 mg/dL [facility] Comment: Fasting reference interval BUN 24 7 - 25 mg/dL [facility] CREATININE 0.88 0.60 - 1.00 mg/dL [facility] GFR 68 > OR = 60 mL/min/1. 73m2 [facility] BUN/CREAT RATIO SEE NOTE: 6 - 22 (calc) [facility] Comment: Not Reported: BUN and Creatinine are within reference range. SODIUM 136 135 - 146 mmol/L [facility] POTASSIUM 4.9 3.5 - 5.3 mmol/L [facility] CHLORIDE 101 98 - 110 mmol/L [facility] CO2 29 20 - 32 mmol/L [facility] CALCIUM 9.8 8.6 - 10.4 mg/dL [facility] TOTAL PROTEIN 7.1 6.1 - 8.1 g/dL [facility] ALBUMIN 4.2 3.6 - 5.1 g/dL [facility] GLOBULIN 2.9 1.9 - 3.7 g/dL (calc) [facility] ALBUMIN/GLOBULIN RATIO 1.4 1.0 - 2.5 (calc) [facility] BILIRUBIN TOTAL 0.3 0.2 - 1.2 mg/dL [facility] ALKALINE PHOSPHATASE 92 37 - 153 U/L [facility] AST 19 10 - 35 U/L [facility] ALT 17 6 - 29 U/L [facility] Comment: Test Performed at: [facility] [address] [place] [address] Moi Allen MD Blood 05/29/2024 10:2 9 AM ANGLE DOZER OPERATOR 05/29/2024 10:32 AM ANGLE DOZER OPERATOR us Adam Wiggins MD CHEMISTRY ORDERABLES Final Re sult [facility] [phone] [facility] [address] [address] * ENDOSCOPY, COLON, SCREENING (05/13/2024 4:32 PM ANGLE DOZER OPERATOR) Abstract Provider GI PROCEDURE ORDERABLES Edited Result - Final [facility] CLIA# [id number] [address] [address] * XR DEXA BONE DENSITY AXIAL 1 OR MORE SITES (02/20/2018) Anatomical Region Laterality Modality Other Adam Wiggins MD DIAGNOSTIC IMAGING ORDERABLES Final Result from Last 3 Months or Most Recently Relevant to [place] [address] [place] [address] MEDICARE PART A AND B [employer] BLUE ACCESS/TRUE BLUE PPO RX Archetypes Medicare Part D Advance Directives For more information, please contact: [phone] * Full Code (Latest Code Status on File) Date Activated Date Inactivated Comments 10/17/2021 6:00 AM 10/18/2021 1:23 PM Care Teams Enterprise Systems Manager Relationship Specialty Start Date End Date Adam Wiggins MD PCP - General 07/21/07
--- OUTSIDE RECORDS SUMMARY | 2024-08-19 14:52 | XMS_ITS | Encounter Summary ---
Author Organization [facility] Address [address] [place] [address] Care Team Providers Care Livestock Rancher Name Role Phone Adam Wiggins MD Primary Care Provider [phone] Encounter Details Date Type Department Care Team (Late st Contact Info) Description 02/10/2007 Orders Only [facility] Internal Medicine [address] [address] Adam Wiggins MD [address] [place] [address] Social History Tobacco Use Types Packs/Day Years Used Date Smoking Tobacco: Never Assessed Comments Unknown Sex and Gender Information Value Date Recorded Sex Assigned at Not on file Legal Sex Female 5:28 AM SHAKER OUT Gender Identity Not on file Sexual Orientation Straight 02/05/2024 6: 22 PM CDT documented as of this encounter Progress Notes * Adam Wiggins MD - 09/05/2007 1:28 PM CDT WEIGHT: 172lbs BLOOD PRESSURE: 130/80 Right Arm Sitting TEMPERATURE: 36.78??c Oral HEIGHT: 5ft0in NURSE NAME: Rey Epps N TOBACCO USE Patient does not currently use tobacco. CHIEF COMPLAINT Seen as a new patient to get established with the practice. Patient complains of sinus congestion. 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 aware of controversy , given by terrazzo polisher--pt wants to continue 244.9-HYPOTHYROIDISM on med, no recent lab 782.1-RASH on breasts x several weeks, discoloration, itching 780.52-INSOMNIA on ambien, neurontin, occ flexeril, zoloft still with issues getting to sleep 627.0-MENOPAUSAL AND POSTMENOPAUSAL DISORDERS as above 473.0-CHRONIC SINUSITIS worse recent past 1-2 weeks with cough , sore throat, ears full, sinus congestion present 724.5-BACK PAIN failed surgery yrs ago was on morphine in past, still req rx 311-DEPRESSION discussed on zoloft unclear if needs med ROS: GENERAL: Normal activity and energy level, no change in appetite. No major weight gain or loss. No malaise, chills, fever, diaphoresis. ALLERGIC/IMMUNOLOGIC: . EYES: . ENT: COMPLAINS OF A SORE THROAT. ENDOCRINE: HAS A HISTORY OF THYROID PROBLEMS. CARDIAC: No chest pain, palpitations, orthopnea, dyspnea on exertion, or paroxysmal nocturnal dyspnea. RESPIRATORY: No dyspnea, cough, hemoptysis or wheezing. SKIN/BREAST/CHEST: NOTES A RASH. HEMATOLOGIC/LYMPHATIC: No anemia, easy bruising, bleeding or swollen nodes. : No frequency, urgency, hematuria or dysuria. GI: No complaints of diarrhea, frequent bowel movements. NEUROLOGIC: No weakness, dizziness, loss of consciousness, transient ischemic symptoms, or seizures. MUSCULOSKELETAL: NOTES JOINT PAIN, COMPLAINS OF A BACKACHE. PSYCHIATRIC: HAS SLEEP DISTURBANCES. PAST MEDICAL HISTORY: MEDICAL: Migraines, Chronic back pain SURGICAL: Vaginal hysterectomy w/bladder sling, Eloy-laminectomy ,, D&C, MRI-back CURRENT MEDICATIONS: Levoxyl 0.2mg daily,,Premarin .9 od., Singulair 1 tab daily, Nexium 40mg. od.,Celebrex 100mg od., Neurontin 1200mg.,Flexeril 1 hs., Ambien 10-20mg hs., Xanax .5mg. hs ALLERGIES/ADVERSE REACTIONS: Erythromycin derivatives, Penicillins.--Hives, severe diarrhea FAMILY HISTORY: FATHER: The father is .[place], [place], [place] MOTHER: The mother is . ASHD SIBLINGS: None SOCIAL HISTORY: MARITAL HISTORY: , living with spouse. LIVING WILL: The patient has a living will. TOBACCO USE: Has no significant smoking history. DISCUSSED SMOKING: neg. 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 CAFFEINE: A minimal amount of caffeinated beverages daily. EXERCISES: The patient is not exercising regularly. DIET: Follows a weight reduction diet. SAFETY ISSUES: Uses seat belts. 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 724.5-BACK PAIN discussed, cont med, for now reassess MEDICATIONS: FLEXERIL ORAL TABLET 10 MG, 1 Every Day At Bedtime, 30 Dispensed, status: NEW PRESCRIPTION, 02/10/2007. GABAPENTIN ORAL TABLET 600 MG, 2 Every Day At Bedtime, 60 Dispensed, status: NEW PRESCRIPTION, 02/10/2007. CELEBREX ORAL CAPSULE CONVENTIONAL 100 MG, 1 Every Day, 30 Dispensed, status: NEW PRESCRIPTION, 02/10/2007. ALPRAZOLAM ORAL TABLET 0.5 MG, 1 Every Day At Bedtime, 30 Dispensed, status: NEW PRESCRIPTION, 02/10/2007. 473.0-CHRONIC SINUSITIS cont med, rx MEDICATIONS: BIAXIN ORAL TABLET 500 MG, 1 Two Times A Day, 20 Dispensed, 10 Duration/Days Supply, status: NEW PRESCRIPTION, 02/10/2007. SINGULAIR ORAL TABLET 10 MG, 1 Every Day, 90 Dispensed, status: NEW PRESCRIPTION, 02/10/2007. 780.52-INSOMNIA discussed try alt med, reassess--try rozerem first, not together MEDICATIONS: LUNESTA ORAL TABLET 3 MG, 1 Every Day At Bedtime, As Needed, 7 Dispensed, status: CONTINUED, 02/10/2007. ROZEREM ORAL TABLET 8 MG, 1 Every Day At Bedtime, 30 Dispensed, status: NEW PRESCRIPTION, 02/10/2007. 782.1-RASH rx MEDICATIONS: LOTRISONE EXTERNAL CREAME 1-0.05 %, DIRECTED, 45 Dispensed, status: NEW PRESCRIPTION, 02/10/2007. SPECIALTY REFERRAL: OFFSET PRESS OPERATOR HELPER HEALTH MAINTENANCE: LAST DATE COLONOSCOPY: . PREVENTIVE COUNSELING The patient was counseled regarding diet, regular sustained exercise for at least 30 minutes 3-4 times per week, routine screening interval for mammogram as recommended by the [place] [employer] and ACOG, colorectal cancer screening, importance of regular PAP smears, diagnosis, treatment, and prevention of osteoporosis, adult immunizations. Patient Education: Risks, benefits, and possible side effects of medication(s) were reviewed with the patient. Questions were allowed to stated satisfaction. RETURN VISIT : Patient instructed to return in 3 months. Electronically Signed by: Adam Wiggins MD on Saturday, February 10, 2007 documented in this encounter Plan of Treatment Upcoming Encounters Date Type Department Care Team (Late st Contact Info) Description 11/13/2024 11:20 AM CDT Office Visit [facility] [place] [address] Adam Wiggins MD [address] [place] [address] documented as of this encounter Visit Diagnoses Not on filedocumented in this encounter Care Teams Livestock Rancher Relationship Specialty Start Date End Date Adam Wiggins MD PCP - General 07/21/07 documented as of this encounter
--- OUTSIDE RECORDS SUMMARY | 2024-08-19 14:52 | XMS_ITS | Clinical Summary ---
Author Organization [facility] Address [address] [place] [address] Care Team Providers Care Yarn Dyer Name Role Phone Hugh Le MD Unavailable [phone] Adam Wiggins MD Primary Care Provider [phone] Source Comments [facility],non-owned Affiliates and Associated Physician Practices is amultiple site organization consisting of ambulatory clinics and hospital sitesin [place], [place], [place] and [place]. This disclosure is being madepursuant to the Care Everywhere program and may not contain all information available regarding this patient. Last updated 18.[facility] Allergies Active Allergy Reactions Criticality Noted Date Comments Erythromycin Nausea and/or Vomiting 03/01/2014 Nickel 08/11/2013 RASH --DR. LE IS AWARE Penicillins Rash Low 03/06/2013 Medications * Be aware that medications may not be up to date on this document. Alwaysverify current medications with the patient. levothyroxine (SYNTHROID) 175 MCG tablet Take 175 mcg by mouth at bedtime. Active DULoxetine (CYMBALTA) 60 MG capsule Take 60 mg by mouth at bedtime. Active celecoxib (CELEBREX) 200 MG capsule Take 400 mg by mouth at bedtime. Active gabapentin (NEURONTIN) 300 MG capsule Take 1,200 mg by mouth at bedtime. Active omeprazole (PRILOSEC) 40 MG capsule Take 40 mg by mouth daily before breakfast. Active temazepam (RESTORIL) 30 MG capsule Take 30 mg by mouth at bedtime. Active traZODone (DESYREL) 50 MG tablet Take 25 mg by mouth as needed. Active Probiotic Product (TrendingGames PO) Take 1 Tab by mouth at bedtime. Active multivitamin daily (THERAGRAN) tablet Take 1 Tab by mouth at bedtime. Active losartan (COZAAR) 50 MG tablet Take 1 Tab by mouth at bedtime. 03/05/2014 Active hydrocodone-acet aminophen (NORCO) 5-325 MG tablet Take 1-2 Tabs by mouth every 6 hours as needed for Pain. 50 Tab 0 04/12/2014 Active Active Problems Problem Noted Date Diagnosed Date S/P total knee replacement 09/22/2013 Osteoarthrosis involving lower leg 06/18/2013 Overview (07/16/2015): 2015 IMO Updt Immunizations Immunization Administration Dates Next Due PNEUMOCOCCAL PPSV23 03/03/2014 Social History Tobacco Use Types Packs/Day Years Used Date Smoking Tobacco: Never Smokeless Tobacco: Never Alcohol Use Standard Drinks/Week Comments Yes 1.7 (1 standard drink = 0.6 oz p ure alcohol) once/week PHQ-2 Answer Date Recorded Patient Health Questionnaire-2 Score 2 12/26/2023 Comments No Sex and Gender Information Value Date Recorded Sex Assigned at Not on file Legal Sex Female 2:59 PM CDT Gender Identity Not on file Sexual Orientation Not on file Last Filed Vital Signs Vital Sign Reading Time Taken Comments Blood Pressure 102/66 03/03/2014 8:24 AM HAM SMOKER Pulse 101 03/03/2014 8:24 AM HAM SMOKER Temperature 37.1 C (98.8 F) 03/03/2014 8:24 AM HAM SMOKER Respiratory Rate 18 03/03/2014 8:24 AM HAM SMOKER Oxygen Saturation 93% 03/03/2014 8:24 AM HAM SMOKER Inhaled Oxygen Concentration - - Weight 80.9 kg (178 lb 6.4 oz) 03/01/2014 7:54 A M HAM SMOKER Height 152.4 cm (5') 03/01/2014 7:54 AM HAM SMOKER Body Mass Index 34.84 03/01/2014 7:54 AM HAM SMOKER Plan of Treatment Health Maintenance Due Date Last Done Comments BONE DENSITY TESTING 1950 MEDICARE AWV 12 MONTHS 1950 HEPATITIS C SCREENING 04/04/1966 DTAP/TDAP/TD VACCINES (1 - Tdap) 1967 ZOSTER VACCINE (1 of 2) 1998 PNEUMOCOCCAL VACCINE 50+ (2 of 2 - PCV) 03/03/2015 03/03/2014 Respiratory Syncytial Virus (RSV) Vaccine Pt: or over 60 yrs (1 - 1-dose 75+ series) 2023 COVID-19 VACCINE (1 - 2023-2 5 season) 2023 DEPRESSION SCREENING 04/22/2024 INFLUENZA VACCINE (Season Ended) 2024 HEPATITIS B VACCINE Aged Out No longe r eligible based on patient's age to complete this topic HIB VACCINE Aged Out No longer eligi ble based on patient's age to complete this topic HPV VACCINE Aged Out No longer eligi ble based on patient's age to complete this topic MENINGOCOCCAL (Group B) VACC INE SHARED DECISION-MAKING Aged Out No longer eligibl e based on patient's age to complete this topic MENINGOCOCCAL GROUPS A/C/Y/W VACCINE Aged Out No longer eligible b ased on patient's age to complete this topic Medical Devices Implanted Type Area Radiotelegraphist Device Identifier Shelf Expiration Date Model / Serial / Lot Beny Bone Radcliff Hv Implanted:Qty: 1 on 08/31/2013 by Hugh Le MD at [facility] Left: Knee [employer] 03/21/2015 [id number] / / [id number] Stem Fem Maxim I-Beam Prim 40mm Implanted:Qty: 1 on 08/31/2013 by Hugh Le MD at [facility] Left: Knee [employer] 04/21/2023 [id number] / / [id number] Titanium Femoral Implant 62.5mm Left Implanted:Qty: 1 on 08/31/2013 by Hugh Le MD at [facility] Left: Knee 01/19/2023 [id number] / / [id number] Ty Tibial Prim Intlok 71mm Implanted:Qty: 1 on 08/31/2013 by Hugh Le MD at [facility] Left: Knee [employer] 07/21/2023 [id number] / / [id number] Butn Pat Arcom Wire Polyeth Sm 31 X 8mm Implanted:Qty: 1 on 08/31/2013 by Hugh Le MD at [facility] Left: Knee [employer] 06/19/[id number] / / [id number] Brdg Tib Pratima Stbl 12mm X 71mm Implanted:Qty: 1 on 08/31/2013 by Hugh Le MD at [facility] Left: Knee [employer] 08/19/2018 [id number] / / [id number] Stem Fem Maxim I-Beam Prim 40mm Implanted:Qty: 1 on 03/01/2014 by Hugh Le MD at [facility] Right: Knee [employer] 08/20/2023 [id number] / / [id number] Ty Tibial Prim Intlok 67mm Implanted:Qty: 1 on 03/01/2014 by Hugh Le MD at [facility] Right: Knee [employer] 07/21/2023 [id number] / / [id number] Vangrd Ant Stblzd Brg 10mm X 67mm Implanted:Qty: 1 on 03/01/2014 by Hugh Le MD at [facility] Right: Knee [employer] 10/19/2014 [id number] / / [id number] Beny Bone Radcliff Hv Implanted:Qty: 1 on 03/01/2014 by Hugh Le MD at [facility] Right: Knee [employer] 11/20/2015 [id number] / / [id number] Butn Pat Arcom Wire Polyeth Sm 31 X 8mm Implanted:Qty: 1 on 03/01/2014 by Hugh Le MD at [facility] Right: Knee [employer] 02/19/[id number] / / [id number] Titanium Femoral Implant 60mm Right Implanted:Qty: 1 on 03/01/2014 by Hugh Le MD at [facility] Right: [employer]nee [employer] 07/21/2023 [id number] / / [id number] Insurance MEDICARE [facility] MEDICARE [facility] Advance Directives Documents on File Type Date 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
== END 2024-08-19 13:52 | disposition home or self-care (01) ==
PROVIDERS: PCP Internal Medicine; Visit Provider Plastic Surgery
DX: G56.21 Lesion of ulnar nerve, right upper limb (principal); G56.01 Carpal tunnel syndrome, right upper limb
CPT/HCPCS: 95886; 95909

== ENCOUNTER 2024-09-07 15:31 | Outpatient (CLI) | payer MEDICARE, SELFPAY ==
--- OUTSIDE RECORDS SUMMARY | 2024-09-07 15:36 | XMS_ITS | Encounter Summary ---
Author Organization [facility] Address [address] [place] [phone] Care Team Providers Care Bi Report Developer Name Role Phone Adam Wiggins MD Primary Care Provider Reason for Visit * Reason Onset Date Comments Medication Refill 05/01/2011 Encounter Details Date Type Department Care Team (Late st Contact Info) Description 05/01/2011 Refill Central Business Office [address] [place] [address] Mychart, Generic Provider Social History Tobacco Use Types Packs/Day Years Used Date Smoking Tobacco: Never Smokeless Tobacco: Never Alcohol Use Standard Drinks/Week Comments Yes 0 (1 standard drink = 0.6 oz pur e alcohol) Comments No Sex and Gender Information Value Date Recorded Sex Assigned at Not on file 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 Wiggins, when I saw you we agreed I would go to Cymbalta 30 mg. and you gave me samples. However, the pharmacy still has a dose of 60 mg. Could you please order me the 30 mg. tablets? Other - see comments for explanation CATTLE FARM WORKER documented in this encounter Plan of Treatment Upcoming Encounters Date Type Department Care Team (Late st Contact Info) Description 11/13/2024 11:20 AM CDT Office Visit [facility] Primary Care [address] [place] [address] Adam Wiggins MD [address] [place] [address] [address] [place] [address] documented as of this encounter Visit Diagnoses Not on filedocumented in this encounter Care Teams Bi Report Developer Relationship Specialty Start Date End Date Adam Wiggins MD PCP - General 07/21/07 documented as of this encounter
--- OUTSIDE RECORDS SUMMARY | 2024-09-07 15:36 | XMS_ITS | Referral Summary ---
Author Organization [facility] Medical Office Building B Address [address] [place] [address] Care Team Providers Care Underwater Trapper Name Role Phone Kathleen Subramanian MD Primary Care Provider + Yosi Luna MD Unavailable [phone] Encounters Date Type Department Care Team Description 07/31/2024 11:45 AM CDT Office Visit 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 06/16/2024 Telephone [facility] [address] [place] [address] [address] [place] [address] Nelly Granger MA from Last 3 Months Allergies Active Allergy [...] SR (WELLBUTRIN SR) 100 mg 12 hr tabletIndicatio ns:Anxiety with Depression [address] (CYMBALTA) 60 mg capsuleIndicati ons:Anxiety with Depression Take 1 capsule (60 mg total) by mouth daily 9 Active glycopyrrolate (ROBINUL) 2 mg tabletIndicatio ns:diarrhea Take 1 tablet (2 mg total) by mouth nightly 9 Active mirabegron ER (MYRBETRIQ) 50 mg tablet extended release 24 hrIndications:U rinary Urgency Take 1 tablet (50 mg total) by mouth nightly Active montelukast (SINGULAIR) 10 mg tabletIndicatio ns:Seasonal Allergic Rhinitis Take 1 tablet (10 mg total) by mouth nightly Active amLODIPine (NORVASC) 2.5 mg tabletIndicatio ns:hypertension Take 1 tablet (2.5 mg total) by mouth daily 1 Active fluticasone propionate (FLONASE) 50 mcg/actuation nasal sprayIndication s:Allergic Rhinitis USE 2 SPRAYS INTO EACH NOSTRIL DAILY 8 Active Lacto.acidophil [facility] center[facility].animalis 32 billion cell capsuleIndicati ons:probiotic for healthy gut Take 1 tablet by mouth daily Active olmesartan (BENICAR) 40 mg tabletIndicatio ns:hypertension Take 1 tablet (40 mg total) by mouth daily 1 Active pravastatin (PRAVACHOL) 10 mg tabletIndicatio ns:hyperlipidem ia Take 1 tablet (10 mg total) by mouth nightly 2 Active Synthroid 137 mcg tabletIndicatio ns:hypothyroidi sm Take 1 tablet (137 mcg total) by mouth nightly 2 Active temazepam (RESTORIL) 30 mg capsuleIndicati ons:Insomnia TAKE 1 CAPSULE BY MOUTH NIGHTLY NEEDED FOR INSOMNIA. 2 Active estradioL (ESTRACE) 0.01 % (0.1 mg/gram) vaginal creamIndication s:Postmenopausa l Urethral Atrophy INSERT 1/2 GRAM VAGINALLY ON SATURDAY, SATURDAY AND SATURDAY AT BEDTIME AFTER VAGINAL PACKING IS REMOVED 2 Active famotidine (PEPCID) 20 mg tabletIndicatio ns:Heartburn Take 1 tablet (20 mg total) by mouth 2 (two) times a day 2 Active cyclobenzaprine (FLEXERIL) 10 mg tabletIndicatio ns:Muscle Spasm Take 1 tablet (10 mg total) by mouth 3 (three) times a day as needed 3 Active ferrous sulfate 325 mg (65 mg of elemental iron) tabletIndicatio ns:Iron Deficiency Anemia Take 1 tablet (325 mg total) by mouth daily 3 Active gabapentin (NEURONTIN) 600 mg tabletIndicatio ns:Neuropathic Pain Take 3 tablets (1,800 mg total) by mouth nightly 4 Active ondansetron (ZOFRAN) 8 mg tabletIndicatio ns:Prevention of Post-Operative Nausea and Vomiting Take 1 tablet (8 mg total) by mouth every 8 (eight) hours as needed for nausea or vomiting 20 tablet 2 4 Active HYDROcodone-claribel taminophen (NORCO) 5-325 mg per tablet TAKE 1 TABLET BY MOUTH EVERY 4 HOURS NEEDED FOR MODERATE PAIN . DO NOT EXCEED 6 PER 24 HOURS 5 Active cefdinir (OMNICEF) 300 mg capsule Take 1 capsule (300 mg total) by mouth 2 (two) times a day Active Active Problems Problem Noted Date Diagnosed [...] on file Legal Sex Female 7:59 PM EXPERIENCE DESIGN DIRECTOR Gender Identity Not on file Sexual Orientation Not on file Last Filed Vital Signs Vital Sign Reading Time Taken Comments Blood Pressure 137/66 07/31/2024 11:39 AM CDT Pulse 93 07/31/2024 11:39 AM CDT Temperature 36.7 C (98 F) 05/13/2024 9:42 AM EXPERIENCE DESIGN DIRECTOR Respiratory Rate 18 05/13/2024 9:42 AM EXPERIENCE DESIGN DIRECTOR Oxygen Saturation 98% 05/13/2024 9:42 AM EXPERIENCE DESIGN DIRECTOR Inhaled Oxygen Concentration - - Weight 82.6 kg (182 lb) 07/31/2024 11:39 AM CDT Height 149.9 cm (4' 11 ) 07/31/2024 11:39 AM CDT Body Mass Index 36.76 07/31/2024 11:39 AM CDT Plan of Treatment Not on file Medical Devices Implanted Type Area Superintendent Refuse Disposal Device Identifier Shelf Expiration Date Model / Serial / Lot [employer] Liner Acetabular Hip Standard Emphasys Aox [id number] Polyethylene [id number] - [id number] Implanted:Qty: 1 on 02/19/2024 by Yosi Luna MD at [facility] Right: Hip [employer] [id number] 12/20/2028 [id number] / / [id number] [employer] Shell Acetabular Hip Porous 3 Hole Coated Emphasys 50mm Titanium [id number] - [id number] Implanted:Qty: 1 on 02/19/2024 by Yosi Luna MD at [facility] Right: Hip [employer] 12/20/2033 [id number] / / [id number] [employer] [place] 6.5mm 35mm Acetabular Cancellous Screw Bone Sterile 1217-35-500 - [id number] Implanted:Qty: 1 on 02/19/2024 by Yosi Luna MD at [facility] Right: Hip [employer] 10/19/2033 1217-35-500 / / [id number] [employer] [place] 6.5mm 25mm Acetabular Cancellous Screw Bone Sterile 1217--500 - [id number] Implanted:Qty: 1 on 02/19/2024 by Yosi Luna MD at [facility] Right: Hip [employer] 10/19/2033 1217-25-500 / / [id number] [employer] Actis Collar Hip 3 High Offset Stem Femoral [id number] - [id number] Implanted:Qty: 1 on 02/19/2024 by Yosi uLna MD at [facility] Right: Hip [employer] 08/19/2033 [id number] / / [id number] [employer] Articul/Markus 36mm Cementless Hip +5mm 12/14 Taper Head Femoral Latex Free [id number] - [id number] Implanted:Qty: 1 on 02/19/2024 by Yosi Luna MD at [facility] Right: Hip [employer] 10/19/2028 [id number] / / [id number] Procedures Procedure Name Priority Date/Time Associated Diagnosis Comments COLONOSCOPY 05/13/2024 7:16 AM EXPERIENCE DESIGN DIRECTOR DIAGNOSTIC MAMMOGRAM BILATERAL W LEYLA Routine 06/03/2015 10:35 AM EXPERIENCE DESIGN DIRECTOR DEXA AXIAL SKELETON BONE DENSITY 1 OR MORE SITES Routine 06/03/2015 10:27 AM EXPERIENCE DESIGN DIRECTOR from Last 3 Months or Most Recently Relevant to Health Maintenance Results * Colonoscopy (05/13/2024 7:16 AM EXPERIENCE DESIGN DIRECTOR) Anatomical Region Laterality Modality Other Narrative Procedure Note Sven Arana DO - 05/13/2024 7:16 AM CST [facility] Patient Name: Kellee Cerna Procedure Date: 05/13/2024 7:16 AM Date of : 1950 Admit Type: Outpatient Age: 74 Gender: Female Attending MD: Sven Arana D.O. Room: [facility] END[facility]COPY ROOM 3 Note Status: Finalized Patient [...] and retrieved. Clips(MR conditional) were placed. Clip biological inspector: [employer]. - Diverticulosis in the left colon. Recommendation: [...] under direct vision. The Pediatric Colonoscope [id number]-[id number] was introducedthrough the anus and advanced to [...] clips were successfully placed (MR conditional). Clip biological inspector: [employer]. Therewas no bleeding at the end of [...] 7:16 AM Procedure Code(s): --- Professional --- 77614, Colonoscopy, flexible; with removal of tumor(s), polyp(s), or other lesion(s) by snare technique --- Technical --- 38974, Colonoscopy, flexible; with removal of tumor(s), polyp(s), [...] perforation orabscess without bleeding CPT copyright 2020 [employer]. All rights reserved. The codes documented in this report are preliminary and upon energy conservation engineer reviewmay be revised to meet current compliance requirements. Recognized by the [employer] for promoting quality in endoscopy us Sven Arana DO ENDOSCOPY PROCEDURES Final Res ult * DIAGNOSTIC MAMMOGRAM BILATERAL W LEYLA (06/03/2015 10:35 AM EXPERIENCE DESIGN DIRECTOR) Anatomical Region Laterality Modality Breast Bilateral Mammography 06/03/2015 10:3 5 AM EXPERIENCE DESIGN DIRECTOR Narrative 06/03/2015 3:02 PM EXPERIENCE DESIGN DIRECTOR MAMMOGRAM PERFORMED BY; SCREENING MAMM W LEYLA BI Acc#: [id number] Screening Mamm Bi Acc#: [id number] DATE OF EXAM: Jun 03 2015 `ADDENDUM PLEASE SEE BELOW CLINICAL HISTORY: Screening mammogram. History of breast reduction. RESULT: A screening mammogram with tomosynthesis was performed. The patient reports prior outside studies at [facility]; however, no prior studies are presently [...] technology was employed plus computer-aided detection software (VisualXcript) was utilized in interpretation of these images. This facility utilizes a reminder system to notify patients of yearly mammograms. IMPRESSION: FOCAL ASYMMETRY DEEP IN THE LEFT CENTRAL BREAST. CORRELATION WITH OUTSIDE MAMMOGRAMS ARE RECOMMENDED. BI-RADS CATEGORY 0 - NEED ADDITIONAL IMAGING EVALUATION. `ADDENDUM Outside mammograms from [facility] performed 09/24/11 and 04/17/10 are now [...] SUBRAMANIAN Requesting Attending Fax: -- Attending ID: [id number] Requesting ID: [id number] Report To 1 ID: [id number] Report To 1 Name: KATHLEEN SUBRAMANIAN Report To 1 FAX: -- NextGen Order #: Procedure Note Provider, MD Seymour - 08/10/2016 MAMMOGRAM PERFORMED BY; SS SCREENING MAMM W LEYLA BI Acc#: [id number] Screening Mamm Bi Acc#: [id number] DATE OF EXAM: Jun 03 2015 `ADDENDUM PLEASE SEEBELOW CLINICAL HISTORY: Screening mammogram. History of breast reduction. RESULT: A screening mammogram with tomosynthesis was performed. The patientreports prior outside studies at [facility]; however, no prior studiesare presently available [...] Digitaltechnology was employed plus computer-aided detection software (VisualXcript) wasutilized in interpretation of these images. This facility utilizes Tasted Menu system to notify patients of yearly mammograms. IMPRESSION: FOCAL ASYMMETRY DEEP IN THE LEFT CENTRAL BREAST. CORRELATION WITH OUTSIDEMAMMOGRAMS ARE RECOMMENDED. BI-RADS CATEGORY 0 - NEED ADDITIONAL IMAGINGEVALUATION. `ADDENDUM Outside mammograms from [facility] 09/24/11 and 04/17/10 are now available. Since [...] Read on: Jun 03 201510:36A Transcribed by: TXD On: Jun 03 2015 11:17A Approved Electronically by: DINA DEUTSCH M.D. on: Jun 03 20153:02P Attending: KATHLEEN SUBRAMANIAN Requesting: DR KATHLEEN SUBRAMANIAN Requesting Attending Fax: -- Attending ID: [id number] Requesting ID: [id number] Report To 1 ID: [id number] Report To 1 Name: KATHLEEN SUBRAMANIAN Report To 1 FAX: -- NextGen Order #: us Historical Provider MD GIBBS MAMMO PROCEDURES [place] l Result * Dexa Axial Skeleton Bone Density 1 or 2 Site (06/03/2015 10:27 AM EXPERIENCE DESIGN DIRECTOR) Anatomical Region Laterality Modality Body N/A Radiographic Elda ging 06/03/2015 10:2 7 AM EXPERIENCE DESIGN DIRECTOR Narrative 06/03/2015 11:37 AM EXPERIENCE DESIGN DIRECTOR DEXA Bone Density Axial Acc#: [id number] DATE OF EXAM: Jun 03 2015 CLINICAL [...] SUBRAMANIAN Requesting Attending Fax: -- Attending ID: [id number] Requesting ID: [id number] Report To 1 ID: [id number] Report To 1 Name: KATHLEEN SUBRAMANIAN Report To 1 FAX: -- NextGen Order #: Procedure Note Provider, MD Seymour - 08/10/2016 DEXA Bone Density Axial Acc#: [id number] DATE OF EXAM: Jun 03 2015 CLINICAL [...] on: Jun 03 2015 10:27A Transcribed by: TXAndre On: Jun 03 2015 11:21A Approved Electronically by: DERIK KAUR M.D. on: Jun 03 2015 11:37A Attending: KATHLEEN SUBRAMANIAN Requesting: DR KATHLEEN SUBRAMANIAN Requesting Attending Fax: -- Attending ID: [id number] Requesting ID: [id number] Report To 1 ID: [id number] Report To 1 Name: KATHLEEN SUBRAMANIAN Report To 1 FAX: -- NextGen Order #: Historical Provider MD GIBBS DXA PROCEDURES Final Result from Last 3 Months or Most Recently Relevant to Health Maintenance Insurance MEDICARE [facility] MEDICARE [facility] MEDICARE BLUE CROSS MEDICARE SUPPLEMENT Advance Directives For more information, please contact: [phone] * Full Code (Latest Code Status on File) Date Activated Date Inactivated Comments 05/13/2024 7:10 AM 05/13/2024 1:52 PM * Full Code Date Activated Date Inactivated Comments 05/13/2024 7:09 AM 05/13/2024 7:10 AM * Full Code Date Activated Date Inactivated Comments 02/19/2024 4:13 PM 02/20/2024 3:44 PM Care Teams Underwater Trapper Relationship Specialty Start Date End Date Kathleen Subramanian MD PCP - General 10/02/16 Yosi Luna MD [address] [place] [address] DR CORRALES [address] [place] [address] Surgeon Orthopedic Surgery 02/20/24
--- OUTSIDE RECORDS SUMMARY | 2024-09-07 15:36 | XMS_ITS | Encounter Summary ---
Author Organization [facility] Health Address [address] [place] [address] Care Team Providers Care Chairman Name Role Phone Hugh Sierra MD Unavailable [phone] Adam Wiggins MD Primary Care Provider Encounter Details Date Type Department Care Team (Late st Contact Info) Description 03/27/2022 Lab Requisition [facility] Care Pathology Lab [address] [place] [address] Edison Bustamante MD [address] [place] [address] Illness, unspecified Social History Tobacco Use Types [...] MARROW BIOPSY (STL) Routine 03/26/2022 8:11 AM ENERGY MANAGEMENT SPECIALIST Illness, unspecified documented in this encounter Results * BONE MARROW BIOPSY (STL) (03/26/2022 8:11 AM ENERGY MANAGEMENT SPECIALIST) Case Report Bone Marrow Patholog y Report Case: [id number] Authorizing Provider: Edison Bustamante MD Collected: 03/26/2022 08:11 AM Ordering Location: [facility] Pathology Lab Received: 03/27/2022 02:30 PM Pathologist: Tony Talley MD Specimens: A) - Bone Marrow Core B) - Bone Marrow Clot 03/29/2022 10:28 AM [facility] PATH[facility] LAB Final Diagnosis Bone marrow, aspirate, clot section, and core biopsy: - Normocellular marrow with maturing trilineage hematopoiesis. - No evidence of lymphoma, overt plasma cell neoplasm, or high-grade myeloid neoplasm. - See description. Peripheral blood smear: - Normocytic anemia. - See description. 03/29/2022 10:28 AM [facility] PATH[facility] LAB at [address] ENERGY MANAGEMENT SPECIALIST AP Comment Immunohistochemistry and in situ hybridization is [...] seen in this study. 03/29/2022 10:28 AM [facility] Peripheral Smear Description RBC: normocytic anemia. WBC: normal in number and morphology. Platelets: normal in number and morphology. 03/29/2022 10:28 AM [facility] Bone Marrow Aspirate Differential count [...] stain): no ring sideroblasts. 03/29/2022 10:28 AM [facility] Bone Marrow Core Biopsy and [...] morphology: peripheral blood only. 03/29/2022 10:28 AM [facility] Flow Cytometry Summary Bone marrow, flow cytometry ([id number]): - No clonal B-cell or increased blast population detected 03/29/2022 10:28 AM [facility] Clinical History Rule out plasma cell neoplasm. 03/29/2022 10:28 AM [facility] Materials Received Received are 11 slides and two blocks (A1, B1) labeled [id number] along with a copy of the outside pathology report. The materials originate from [facility], [address] [place] [address]. All original materials are returned to the referring institution, along with a copy of our final report. 03/29/2022 10:28 AM [facility] Disclaimer The performance characteristics of all immunohistochemical and indirect immunofluorescence stains (if any) cited in this report were determined by the Histopathology Laboratory of [facility]. Some of these tests were developed by [...] the attending (teaching) pathologist. 03/29/2022 10:28 AM [facility] Embedded Images 03/29/2022 10:28 AM [facility] Pathology/Cytology BONE MARROW CLOT SPECIMEN / Unknown 03/26/2022 8:11 AM ENERGY MANAGEMENT SPECIALIST 03/27/2022 2:30 PM ENERGY MANAGEMENT SPECIALIST Miscellaneous samples (specimen) BONE MARROW CLOT SPECIMEN / Unknown 03/26/2022 8:11 AM ENERGY MANAGEMENT SPECIALIST 03/27/2022 2:30 PM ENERGY MANAGEMENT SPECIALIST Edison Bustamante MD LAB - PATHOLOGY/CYTOLOGY ORD ERABLES Final Result Performing Organization Address City/State/[facility] Co de Phone Number [facility] PATHOLOGY LAB [address] [phone] documented in this encounter Visit Diagnoses Diagnosis Illness, unspecified documented in this encounter Care Teams Chairman Relationship Specialty [place] [address] [address] [address] [place] [address] PCP - General Internal Medicine 03/06/13 [place] [address] [address] [place] [address] Orthopedic Surgery 03/06/13 documented as of this encounter
--- OUTSIDE RECORDS SUMMARY | 2024-09-07 15:36 | XMS_ITS | Encounter Summary ---
Author Organization [facility] Health Address [address] [place] [address] Care Team Providers Care Hash Slinger Name Role Phone Hugh Sierra MD Unavailable [phone] Adam Wiggins MD Primary Care Provider [phone] Encounter Details Date Type Department Care Team (Late st Contact Info) Description 03/26/2022 Lab Requisition [facility] Care Pathology Lab [address] [place] [address] Edison Bustamante MD [address] [place] [id number] Anemia, unspecified Social History Tobacco Use Types [...] CYTOMETRY BONE MARROW Routine 03/26/2022 8:17 AM R D INTERN Anemia, unspecified documented in this encounter Results * FLOW CYTOMETRY BONE MARROW (03/26/2022 8:17 AM R D INTERN) Case Report Flow Cytometry Case: [id number] Authorizing Provider: Edison Bustamante MD Collected: 03/26/2022 08:17 AM Ordering Location: [facility] Pathology Lab Received: 03/26/2022 01:15 PM Pathologist: Tony Talley MD Specimen: Bone Marrow 03/26/2022 3:50 PM [facility] PATHOLOGY LAB Final Diagnosis Bone marrow, flow cytometry: - No clonal B-cell or increased blast population detected 03/26/2022 3:50 PM [facility] PATHOLOGY LAB at [address]50 R D INTERN Flow Cytometry Interpretation The bone marrow specimen [...] the flow cytometry specimen is reviewed for air quality manager purposes. 03/26/2022 3:50 PM [facility] PATH[facility]Y LAB Flow Cytometry Results Differential Result Comment Flow Cell Count /uL 36,800 Total Viability % 93.0 Lymphocytes % 35 Dim CD45 Region % 8 Monocytes % 15 Granulocytes % 42 03/26/2022 3:50 PM [facility] Reason for test Anemia, unspecified 285.9 03/26/2022 3:50 PM [facility] PATH[facility] Client Specimen ID # [id number] 03/26/2022 3:50 PM [facility] PATH[facility] Number of markers 10 were performed. A-2 Flow CD10 A-3 Flow CD13 A-5 Flow CD20 A-1 Flow CD5 A-4 Flow CD19 A-6 Flow CD33 A-7 Flow CD34 A-8 Flow CD45 A-9 Saranap+CD19+ A-10 Lambda+CD19+ 03/26/2022 3:50 PM [facility] PATHOLOGY LAB Disclaimer Test performed at [facility], [address] [place] [address], [employer]. *The established laboratory minimum viability is 70%. [...] high complexity clinical testing. 03/26/2022 3:50 PM [facility] PATHOLOGY LAB Embedded Images 3:50 PM [facility] PATH[facility] LAB Pathology/Cytolo gy BONE MARROW SPECIMEN / Unknown 03/26/2022 8:17 AM R D INTERN 03/26/2022 1:15 PM R D INTERN Edison Bustamante MD LAB - PATHOLOGY/CYTOLOGY ORD ERABLES Final Result [facility] PATHOLOGY LAB [address] [place] [address]. [address] [phone] documented in this encounter Visit Diagnoses Diagnosis Anemia, unspecified documented in this encounter Care Teams Hash Slinger Relationship Specialty [place] [address] [address] [place] [address] PCP - General Internal Medicine 03/06/13 [place] [address] [address] [place] [address] Orthopedic Surgery 03/06/13 documented as of this encounter
--- NOTE | 2024-09-07 15:37 | ECG_ITS ---
Test Date: 2024-09-07 15:56:35 Measurements Intervals [place] Rate: 72 P: 32 MI: 183 QRS: 11 QRSD: 138 T: 41 QT: 400 QTc: 438 Interpretive Statements SINUS RHYTHM LEFT BUNDLE BRANCH BLOCK [120+ ms QRS DURATION, 80+ ms Q/S IN V1/V2, 85+ ms R IN I/aVL/V5/V6] No previous ECG available for comparison Electronically Signed On 09-08-2024 13:24:24 CDT by Lupe Sifuentes M.D.
--- OUTSIDE RECORDS SUMMARY | 2024-09-07 15:37 | XMS_ITS | Clinical Summary ---
Author Organization [facility] Address [address] [place] [address] Care Team Providers Care Contract Mail Carrier Name Role Phone Kathleen Subramanian MD Primary Care Provider + Yosi Luna MD Unavailable [phone] Allergies Active Allergy Reactions Criticality Noted Date [...] INTO EACH NOSTRIL DAILY 8 Active Lacto.acidophil us-Bif.animalis 32 billion cell capsuleIndicati ons:probiotic for healthy [...] Description 07/31/2024 11:45 AM CDT Office Visit [facility] [address] [place] [address] [address] [place] [address] Ailyn Marshall NP Trochanteric bursitis of right hip (Primary Dx); It band syndrome, right 06/16/2024 Orders Only [facility] [address] [place] [address] [address] [place] [address] Cristal Hunt PA Trochanteric bursitis of right hip (Primary Dx); 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 06/16/2024 Telephone [facility] [address] [place] [address] [address] [place] [address] Nelly Granger MA from Last 3 Months Surgical History Surgery [...] history of malignant neoplasm - (Added by Conv) Colon cancer Father Diabetes Father Family history of diabetes mellitus - (Added by Conv) Heart disease Father Family history of cardiac disorder - (Added by TW Conv) Hypertension Father Family history of hypertension - (Added by TW Conv) Heart disease Mother Family history of cardiac disorder - (Added by TW Conv) Hypertension Mother Family history of hypertension - (Added by Conv) Kidney disease Mother Family histor y of kidney disease - (Added by Conv) Relation Name Status Comments Father Mother [...] on file Legal Sex Female 7:59 PM COMMUNITY RELATIONS SPECIALIST Gender Identity Not on file Sexual Orientation Not on file Obstetrics History Last Filed Vital Signs Vital Sign Reading Time Taken Comments Blood Pressure 137/66 07/31/2024 11:39 AM CDT Pulse 93 07/31/2024 11:39 AM CDT Temperature 36.7 C (98 F) 05/13/2024 9:42 AM COMMUNITY RELATIONS SPECIALIST Respiratory Rate 18 05/13/2024 9:42 AM COMMUNITY RELATIONS SPECIALIST Oxygen Saturation 98% 05/13/2024 9:42 AM COMMUNITY RELATIONS SPECIALIST Inhaled Oxygen Concentration - - Weight 82.6 [...] 02/20/2018, 02/20/2018, Additional history exists Covid-19 Vaccine (2023-05 5 season) 2023 08/29/2021, 01/03/2021, 05/24/2020, Additional [...] 05/13/2024 Colon Cancer Screening-DNA Stool Discontinued 05/13/19 25 Colon Cancer Screening-FIT Discontinued 05/13/2024 Colon Cancer Screening-FOBT Discontinued 05/13/2024 Colon Cancer Screening-Sigmoidoscopy Discontinued 05/13/2024 Colorectal Cancer Screening Discontinued Medical Devices Implanted Type Area Fitness Sales Consultant Device Identifier Shelf Expiration Date Model / Serial / Lot [employer] Liner Acetabular Hip Standard Emphasys Aox 44n14cn Polyethylene [id number] - [id number] Implanted:Qty: 1 on 02/19/2024 by Yosi Luna MD at [facility] Right: Hip [employer] [id number] 12/20/2028 [id number] / / [id number] [employer] Shell Acetabular Hip Porous 3 Hole Coated Emphasys 50mm Titanium [id number] - [id number] Implanted:Qty: 1 on 02/19/2024 by Yosi Luna MD at [facility] Right: Hip [employer] 12/20/2033 [id number] / / [id number] [employer] Sproul 6.5mm 35mm Acetabular Cancellous Screw Bone Sterile 1217-35-500 - [id number] Implanted:Qty: 1 on 02/19/2024 by Yosi Luna MD at [facility] Right: Hip [employer] 10/19/2033 1217-35-500 / / [id number] [employer] Sproul 6.5mm 25mm Acetabular Cancellous Screw Bone Sterile 1217 - [id number] Implanted:Qty: 1 on 02/19/2024 by Yosi Luna MD at [facility] Right: Hip [employer] 10/19/2033 1217--500 / / [id number] [employer] Actis Collar Hip 3 High Offset Stem Femoral [id number] - [id number] Implanted:Qty: 1 on 02/19/2024 by Yosi Luna MD at [facility] Right: Hip [employer] 08/19/2033 [id number] / / [id number] [employer] Articul/Markus 36mm Cementless Hip +5mm 12/14 Taper Head Femoral Latex Free [id number] - [id number] Implanted:Qty: 1 on 02/19/2024 by Yosi Luna MD at [facility] Right: Hip [employer] 10/19/2028 [id number] / / [id number] Procedures Procedure Name Priority Date/Time Associated Diagnosis Comments COLONOSCOPY 05/13/2024 7:16 AM COMMUNITY RELATIONS SPECIALIST DIAGNOSTIC MAMMOGRAM BILATERAL W LEYLA Routine 06/03/2015 10:35 AM COMMUNITY RELATIONS SPECIALIST DEXA AXIAL SKELETON BONE DENSITY 1 OR MORE SITES Routine 06/03/2015 10:27 AM COMMUNITY RELATIONS SPECIALIST from Last 3 Months or Most Recently Relevant to Health Maintenance Results * Colonoscopy (05/13/2024 7:16 AM COMMUNITY RELATIONS SPECIALIST) Anatomical Region Laterality Modality Other Narrative Procedure Note Sven Arana, - 05/13/2024 7:16 AM CST [facility] Patient Name: Kellee Cerna Procedure Date: 05/13/2024 7:16 AM Date of : 1950 Admit Type: Outpatient Age: 74 Gender: Female Attending MD: Sven Arana D.O. Room: [facility] END[facility]COPY ROOM 3 Note Status: Finalized Patient [...] and retrieved. Clips(MR conditional) were placed. 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 - Diverticulosis in the left colon. Recommendation: [...] under direct vision. The Pediatric Colonoscope PCF-H190L [id number] was introducedthrough the anus and advanced to [...] clips were successfully placed (MR conditional). 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 Therewas no bleeding at the end of [...] 7:16 AM Procedure Code(s): --- Professional --- 12031, Colonoscopy, flexible; with removal of tumor(s), polyp(s), or other lesion(s) by snare technique --- Technical --- 13594, Colonoscopy, flexible; with removal of tumor(s), polyp(s), [...] perforation orabscess without bleeding CPT copyright 2020 [employer]. All rights reserved. The codes documented in this report are preliminary and upon medical record coder reviewmay be revised to meet current compliance requirements. Recognized by the [employer] for promoting quality in endoscopy us Sven Arana DO ENDOSCOPY PROCEDURES Final Res ult * DIAGNOSTIC MAMMOGRAM BILATERAL W LEYLA (06/03/2015 10:35 AM COMMUNITY RELATIONS SPECIALIST) Anatomical Region Laterality Modality Breast Bilateral Mammography 06/03/2015 10:3 5 AM COMMUNITY RELATIONS SPECIALIST Narrative 06/03/2015 3:02 PM COMMUNITY RELATIONS SPECIALIST MAMMOGRAM PERFORMED BY; SCREENING MAMM W LEYLA BI Acc#: [id number] Screening Mamm Bi Acc#: [id number] DATE OF EXAM: Jun 03 2015 `ADDENDUM PLEASE SEE BELOW CLINICAL HISTORY: Screening mammogram. History of breast reduction. RESULT: A screening mammogram with tomosynthesis was performed. The patient reports prior outside studies at [facility]; however, no prior studies are presently [...] technology was employed plus computer-aided detection software (Hooptap) was utilized in interpretation of these images. This facility utilizes a reminder system to notify patients of yearly mammograms. IMPRESSION: FOCAL ASYMMETRY DEEP IN THE LEFT CENTRAL BREAST. CORRELATION WITH OUTSIDE MAMMOGRAMS ARE RECOMMENDED. BI-RADS CATEGORY 0 - NEED ADDITIONAL IMAGING EVALUATION. `ADDENDUM Outside mammograms from [facility] performed 09/24/11 and 04/17/10 are now [...] SUBRAMANIAN Requesting Attending Fax: -- Attending ID: [id number] Requesting ID: [id number] Report To 1 ID: [id number] Report To 1 Name: KATHLEEN SUBRAMANIAN Report To 1 FAX: -- NextGen Order #: Procedure Note Provider, MD Seymour - 08/10/2016 MAMMOGRAM PERFORMED BY; SCREENING MAMM W LEYLA BI Acc#: [id number] Screening Mamm Bi Acc#: [id number] DATE OF EXAM: Jun 03 2015 `ADDENDUM PLEASE SEEBELOW CLINICAL HISTORY: Screening mammogram. History of breast reduction. RESULT: A screening mammogram with tomosynthesis was performed. The patientreports prior outside studies at [facility]; however, no prior studiesare presently available [...] interpretation of these images. This facility utilizes [employer] system to notify patients of yearly mammograms. IMPRESSION: FOCAL ASYMMETRY DEEP IN THE LEFT CENTRAL BREAST. CORRELATION WITH OUTSIDEMAMMOGRAMS ARE RECOMMENDED. BI-RADS CATEGORY 0 - NEED ADDITIONAL IMAGINGEVALUATION. `[facility]. Since [...] SUBRAMANIAN Requesting Attending Fax: -- Attending ID: [id number] Requesting ID: [id number] Report To 1 ID: [id number] Report To 1 Name: KATHLEEN SUBRAMANIAN Report To 1 FAX: -- NextGen Order #: Historical Provider MD GIBBS MAMMO PROCEDURES [place] l Result * Dexa Axial Skeleton Bone Density 1 or 2 Site (06/03/2015 10:27 AM COMMUNITY RELATIONS SPECIALIST) Anatomical Region Laterality Modality Body N/A Radiographic Elda ging 06/03/2015 10:2 7 AM COMMUNITY RELATIONS SPECIALIST Narrative 06/03/2015 11:37 AM COMMUNITY RELATIONS SPECIALIST DEXA Bone Density Axial Acc#: [id number] DATE OF EXAM: Jun 03 2015 CLINICAL [...] SUBRAMANIAN Requesting Attending Fax: -- Attending ID: [id number] Requesting ID: [id number] Report To 1 ID: [id number] Report To 1 Name: KATHLEEN SUBRAMANIAN Report To 1 FAX: -- NextGen Order #: Procedure Note Provider, MD Seymour - 08/10/2016 DEXA Bone Density Axial Acc#: [id number] DATE OF EXAM: Jun 03 2015 CLINICAL [...] SUBRAMANIAN Requesting Attending Fax: -- Attending ID: [id number] Requesting ID: [id number] Report To 1 ID: [id number] Report To 1 Name: KATHLEEN SUBRAMANIAN Report To 1 FAX: -- NextGen Order #: Historical Provider MD GIBBS DXA PROCEDURES Final Result from Last 3 Months or Most Recently Relevant to Health Maintenance Insurance MEDICARE [facility] MEDICARE [facility] MEDICARE [facility] MEDICARE SUPPLEMENT Advance Directives For more information, please contact: [phone] * Full Code (Latest Code Status on File) Date Activated Date Inactivated Comments 05/13/2024 7:10 AM 05/13/2024 1:52 PM * Full Code Date Activated Date Inactivated Comments 05/13/2024 7:09 AM 05/13/2024 7:10 AM * Full Code Date Activated Date Inactivated Comments 02/19/2024 4:13 PM 02/20/2024 3:44 PM Care Teams Contract Mail Carrier Relationship Specialty Start Date End Date Kathleen Subramanian MD PCP - General 10/02/16 Yosi Luna MD [address] [place] [address] [place] [address] Surgeon Orthopedic Surgery 02/20/24
--- OUTSIDE RECORDS SUMMARY | 2024-09-07 15:37 | XMS_ITS | Encounter Summary ---
Author Organization [facility] Address [address] [place] [address] Care Team Providers Care Investigator Operator Name Role Phone Adam Wiggins MD Primary Care Provider [phone] Encounter Details Date Type Department Care Team (Late st Contact Info) Description 07/14/2007 Orders Only [facility] Internal Medicine [address] [address] Adam Wiggins MD [address] [place] [address] Social History Tobacco Use Types Packs/Day Years Used Date Smoking Tobacco: Never Assessed Comments Unknown Sex and Gender Information Value Date Recorded Sex Assigned at Not on file Legal Sex Female 5:28 AM GRAPHICS COORDINATOR Gender Identity Not on file Sexual Orientation Straight 02/05/2024 6: 22 PM CDT documented as of this encounter Progress Notes * Adam Wiggins MD - 09/25/2007 7:40 PM CDT TIME:09:39 am PATIENT`S HOME PHONE: PATIENT`S WORK PHONE: PATIENT`S INSURANCE: [employer] PPO WHO TOOK THE CALL: Araceli Smith R GENERAL INFORMATION ALTERNATIVE PHONE NUMBER: [phone] or [phone] WHO CALLED: Patient called. PHARMACY NUMBER: [phone] PROBLEMS: patient missed appt unable to leave [...] Description 11/13/2024 11:20 AM CDT Office Visit [facility] [place] [address] Adam Wiggins MD [address] [place], [place] [id number] documented as of this encounter Visit Diagnoses Not on filedocumented in this encounter Care Teams Investigator Operator Relationship Specialty Start Date End Date Adam Wiggins MD PCP - General 07/21/07 documented as of this encounter
--- OUTSIDE RECORDS SUMMARY | 2024-09-07 15:37 | XMS_ITS | Encounter Summary ---
Author Organization [facility] Address [address] [place] [address] Care Team Providers Care Cross Tie Cutter Name Role Phone Adam Wiggins MD Primary Care Provider [phone] Encounter Details Date Type Department Care Team (Late st Contact Info) Description 02/10/2007 Outpatient Historical [facility] Internal Medicine [address] [place] [address] [address] Adam Wiggins MD [address] [place] [address] Social History Tobacco Use Types Packs/Day Years Used Date Smoking Tobacco: Never Assessed Comments Unknown Sex and Gender Information Value Date Recorded Sex Assigned at Not on file Legal Sex Female 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
--- OUTSIDE RECORDS SUMMARY | 2024-09-07 15:37 | XMS_ITS | Continuity of Care Document ---
Author Organization [facility] Address [address] [place] [address] [address] [place] [address] Phone Care Team Providers Care Fuel Assembler Name Role Phone Duane BENAVIDEZ, Deni Unavailable Unavaila ble Procedures Procedure Date POSTOP FOLLOW-UP VISIT CATARACT SURG W/IOL, 1 STAGE OFFICE/OUTPATIENT VISIT, [facility] OPHTHALMIC BIOMETRY OPHTHALMIC BIOMETRY Advance Directives Directive Yes / No Effective Date File Name No Information Encounters Encounter Description Practice Location Reason(s) For Visit Diagnoses Date Provider Providers Copied on Encounter Ophthalmology [facility], [address] [place] [address], [id number], tel:[phone] [facility] No Information 9 Joaoishtanna Deni. [address], [place], [place], [id number], [place]. tel:[phone] Referring Provider: [facility], [address] [place] [address], [id number], tel:[phone] [facility] No Information 9 Joaoishnasyane Deni. [address], [place], [place], [id number], [place]. tel:[phone] Referring Provider: Deni adamson, [address], [place], [address] . tel:[phone] OFFICE/OUTPAT IENT VISIT, [facility], [address], [place], [place], [id number], [place] tel:[phone] [facility] IZZY Rosenthal No Information 9 Duane Lozanohil. [address] [facility] [address] , [address], [place], [place], [id number], [place]. tel:[phone] Referring Provider: Hieu Darnell, [address] [facility] [address], [place], [address]. tel:[phone] Family History Family Member Type Diagnosis Age At Onset No Information Payers Payer name Insurance type Covered libertarian ID Authoriza tion(s) No Information Social History [...]
--- OUTSIDE RECORDS SUMMARY | 2024-09-07 15:37 | XMS_ITS | Encounter Summary ---
Author Organization [facility] Address [address] [place] [address] Phone Care Team Providers Care Raw Scales Operator Name Role Phone Adam Wiggins MD Primary Care Provider [phone] David Henriquez MD Unavailable Stas Malin MD Unavailable [phone] Reason for Referral * PT/OT/ST (Routine) - Authorized Specialty Diagnoses / Procedures Referred By Irais calderon Referred To Contact Physical Therapy Diagnoses Trochanteric bursitis of right hip 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 Cristal Hunt PAC [address] [place] [address] [place] [address] Phone: tel: fax: [facility] at [address], [address] [address] Phone: tel: fax: Referral ID Status Reason Start Date Expiration Date V isits Requested Visits Authorized [id number] Authorized 06/16/2024 50 50 Scheduling Instructions LITIES MECHANICAL DESIGN ENGINEER Encounter Details Date Type Department Care Team (Late st Contact Info) Description 06/16/2024 Transcribe Orders [facility] [address] [place] [address] Cristal Hunt PAC [address] [place] [address] Trochanteric bursitis of right hip (Primary Dx); [...] Care Team (Late st Contact Info) Description 09/08/2024 9:15 AM CDT [facility] [address], [address] [phone] Cristal Hunt PAC [address] [place] [address] Lin Fuller, PT [place] Discharge Disposition: Discharged to home or Selfcare 09/10/2024 10:00 AM CDT Physical Therapy [facility] at [address], [address] [address] Cristal Hunt PAC [address] [place] [address] Lin Fuller, PT [place] 09/22/2024 1:30 PM CDT Physical Therapy [facility] at [facility] [address] [facility], [place] [address] [phone] Cristal Hunt PAC [address] [place] [address] Lin Fuller, PT [place] 10/06/2024 2:15 PM CDT [facility] [address] [facility], [place] [address] [place] [address] Cristal Hunt, PAC [address] [place] [address] Lin Fuller, PT [place] Scheduled Referrals Name Type Priority Associated Diagnoses Orde r Schedule PHYSICAL THERAPY REFERRAL Outpatient Referral Routine Trochanteric bursitis of right hip 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 Expected: 06/16/2024, Expires: 06/16/2025 documented as of this encounter Visit Diagnoses Diagnosis Trochanteric bursitis of right hip- Primary Enthesopathy of hip region 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 documented in this encounter Care Teams Raw Scales Operator Relationship Specialty Start Date End Date Adam Wiggins MD [address] [place] [phone] PCP - General 06/08/15 David Henriquez MD #[address] [address] Consulting Physician Colon and Rectal Surgery 10/09/23 Stas Malin MD [address] [place] [address] Consulting Physician Medical Oncology 06/05/23 documented as of this encounter
--- OUTSIDE RECORDS SUMMARY | 2024-09-07 15:37 | XMS_ITS | Encounter Summary ---
Author Organization [facility] Address [address] [place] [address] Care Team Providers Care Esthetic Dermatologist Name Role Phone Adam Wiggins MD Primary Care Provider [phone] Encounter Details Date Type Department Care Team (Late st Contact Info) Description 02/10/2007 Orders Only [facility] Internal Medicine [address] [address] Adam Wiggins MD [address] [place] [address] Social History Tobacco Use Types Packs/Day Years Used Date Smoking Tobacco: Never Assessed Comments Unknown Sex and Gender Information Value Date Recorded Sex Assigned at Not on file Legal Sex Female 5:28 AM TOOL AND DIE DESIGNER Gender Identity Not on file Sexual Orientation Straight 02/05/2024 6: 22 PM CDT documented as of this encounter Progress Notes * Adam Wiggins MD - 09/05/2007 1:28 PM CDT WEIGHT: 172lbs BLOOD PRESSURE: 130/80 Right Arm Sitting TEMPERATURE: 36.78Â°c Oral HEIGHT: 5ft0in NURSE NAME: Rey Epps N TOBACCO USE Patient does not currently use tobacco. CHIEF COMPLAINT Seen as a new patient to get established with the practice. Patient complains of sinus congestion. 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 aware of controversy , given by commercial correspondent--pt wants to continue 244.9-HYPOTHYROIDISM on med, no [...] diarrhea FAMILY HISTORY: FATHER: The father is .[place], DM, Colon [place] MOTHER: The mother is [...] med, check lab LAB ORDERS: Order number: [id number] Test Ordered: MAMMOGRAM BI-LATERAL (2 VIEWS) Order number: [id number] Test Ordered: BONE DENSITY (HIP & SPINE) Order number: [id number] Test Ordered: CBC W/ DIFFERENTIAL 3150 Order number: [id number] Test Ordered: COMPREHENSIVE METABOLIC PANEL & GFR 1112 Order number: [id number] Test Ordered: LIPID PANEL 1078 Order number: [id number] Test Ordered: TSH 1720 Order number: [id number] Test Ordered: VITAMIN B12 LEVEL 1719 E932.9-HORMONES [...] Dispensed, status: NEW PRESCRIPTION, 02/10/2007. SPECIALTY REFERRAL: HEAD OF TALENT MANAGEMENT HEALTH MAINTENANCE: LAST DATE COLONOSCOPY: . PREVENTIVE COUNSELING The patient was counseled regarding diet, regular sustained exercise for at least 30 minutes 3-4 times per week, routine screening interval for mammogram as recommended by the [place] [employer] and ACOG, colorectal cancer screening, [...] Description 11/13/2024 11:20 AM CDT Office Visit [facility] Primary Care [address] Aadm Wiggins MD [address] [place], [place] [phone] documented as of this encounter Visit Diagnoses Not on filedocumented in this encounter Care Teams Esthetic Dermatologist Relationship Specialty Start Date End Date Adam Wiggins MD PCP - General 07/21/07 documented as of this encounter
--- OUTSIDE RECORDS SUMMARY | 2024-09-07 15:37 | XMS_ITS | Clinical Summary ---
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
--- OUTSIDE RECORDS SUMMARY | 2024-09-07 15:37 | XMS_ITS | Encounter Summary ---
Author Organization [facility] Address [address] [place] [address] Care Team Providers Care Grinder Name Role Phone Adam Wiggins MD Primary Care Provider Reason for Referral * Specialty Diagnoses / Procedures Referred By Irais calderon Referred To Contact [facility] [address] [place] [phone] Referral ID Status Reason Start Date Expiration Date Visits Re quested Visits Authorized Encounter Details Date Type Department Care Team (Late st Contact Info) Description 09/03/2024 Orders Only [facility] [address] [place] [address] Provider, Abstract NO ADDRESS ON FILE Social History Tobacco Use Types Packs/Day Years [...] often do you attend chur ch or christian services? 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 Gender Identity Not on file Sexual Orientation Straight 02/05/2024 6: 22 PM CDT Occupation Industry Job Start Date Job End Date RETIRED Not on file Not on file Not on file documented as of this encounter Plan of Treatment Upcoming Encounters Date Type Department Care Team (Late st Contact Info) Description 11/13/2024 11:20 AM CDT Office Visit [facility] [address] [place] [address] Adam Wiggins MD [address] [place] [address] [place] [address] documented as of this encounter Procedures Procedure Name Priority Date/Time Associated Diagnosis Comments AMB REFERRAL TO NEUROLOGY Routine 08/19/2024 2:00 PM CDT documented in this encounter Results * AMB REFERRAL TO NEUROLOGY (08/19/2024 2:00 PM CDT) us Abstract Provider OUTPATIENT REFERRALS Final Res ult [id number] [address] [facility] [address] [place] [address] documented in this encounter Visit Diagnoses Not on filedocumented in this encounter Care Teams Grinder Relationship Specialty Start Date End Date Adam Wiggins MD PCP - General 07/21/07 documented as of this encounter
--- OUTSIDE RECORDS SUMMARY | 2024-09-07 15:37 | XMS_ITS | Clinical Summary ---
Author Organization [facility] Address [address], [address] [place] [address] Phone Care Team Providers Care Subsystems Engineer Name Role Phone Adam Wiggins MD Primary Care Provider [phone] David Henriquez MD Unavailable Stas Malin MD Unavailable [phone] Allergies Active Allergy Reactions Criticality Noted Date Comments Nebivolol Diarrhea 01/16/2019 Nickel Rash Medium 08/11/2013 RASH --DR. SIERRA IS AWARE RASH --DR. SIERRA IS AWARE RASH --DR. SIERRA IS AWARE RASH --DR. SIERRA IS AWARE Penicillins Hives Medium 02/09/2019 Medications [...] Encounters Date Type Department Care Team Description 09/03/2024 Telephone [facility] at [facility] [address], [address] [place] [address] Lin Fuller, PT cancelled due to time conflict 09/01/2024 2:15 PM CDT Physical Therapy [facility] at [facility] [address], [place] [address] Cristal Hunt PAC Fisher, Debra C, PT Discharge Disposition: Discharged to home or Selfcare 09/01/2024 Travel 08/28/2024 10:15 AM CDT Physical Therapy [facility] at [facility] [address], [place] [address] [place] [address] Cristal Hunt PAC Fisher, Debra C, PT Abnormal gait (Primary Dx); Trochanteric bursitis of right hip; Weakness Discharge Disposition: Discharged to home or Selfcare 08/28/2024 Travel 08/24/2024 10:00 AM CDT Physical Therapy [facility] at [facility] [address], [address] [address] [place] [address] Cristal Hunt PAC Fisher, Debra C, PT Discharge Disposition: Discharged to home or Selfcare 08/24/2024 Travel 08/20/2024 1:15 PM CDT Physical Therapy [facility] at [facility] [address], [address] [place] [address] Cristal Hunt PAC Fisher, Debra C, PT Discharge Disposition: Discharged to home or Selfcare 08/19/2024 Plan of Care Documentation [facility] at [facility] [address], [address] [place] [address] 08/18/2024 1:30 PM CDT Physical Therapy [facility] [address], [place] [address] [place] [address] Cristal Hunt PAC Fisher, Debra C, PT Trochanteric bursitis of right hip (Primary Dx); Weakness; Abnormal gait Discharge Disposition: Discharged to home or Selfcare 08/18/2024 Travel 08/13/2024 Telephone [facility] [address], [address] [address] [place] [address] Amberly Parish, PT Appointment (Called to cancel PT today) 08/06/2024 10:45 AM CDT Physical Therapy [facility] at [address] [place] [address] [place] [address] Cristal Hunt PAC Fisher, Lin C, PT Discharge Disposition: Discharged to home or Selfcare 08/06/2024 Travel 07/31/2024 1:15 PM CDT Physical Therapy [facility] [address], [place] [address] [place] [address] Cristal Hunt PAC Fisher, Lin C, PT Discharge Disposition: Discharged to home or Selfcare 07/29/2024 10:45 AM CDT Physical Therapy [facility] [address], [address] [place] [address] Cristal Hunt PAC Fisher, Debra C, PT Discharge Disposition: Discharged to home or Selfcare 07/29/2024 Travel 07/23/2024 10:45 AM CDT Physical Therapy [facility] [address], [address] [place] [address] Cristal Hunt PAC Fisher, Debra C, PT Discharge Disposition: Discharged to home or Selfcare 07/20/2024 10:45 AM CDT Physical Therapy [facility] [address], [address] [address] [place] [address] Cristal Hunt PAC Fisher, Debra C, PT Discharge Disposition: Discharged to home or Selfcare 07/20/2024 Travel 07/15/2024 9:15 AM CDT Physical Therapy [facility] [address], [address] [address] [place] [address] Cristal Hunt PAC Bogowith, Kelly A, PT Trochanteric bursitis of right hip (Primary Dx); 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 Discharge Disposition: Discharged to home or Selfcare 07/13/2024 Telephone [facility] [address] [facility] [place] [address] [phone] Amberly Parish, PT Appointment (Called to cancel PT today) 07/12/2024 11:29 AM CDT - 07/12/2024 1:34 PM CDT [facility] [address] [place] [address] Siobhan Jimenez MD Gastroenteritis Discharge Disposition: Discharged to home or Selfcare 07/12/2024 10:40 AM CDT Urgent Care Visit [facility] [address] [place] [address] Federico Lu APRN, OIL TRANSPORT DRIVER Lower abdominal pain (Primary Dx) Discharge Disposition: Discharged to home or Selfcare 07/12/2024 Travel 07/08/2024 2:45 PM CDT Physical Therapy [facility] [address], [address] [place] [address] Cristal Hunt PAC Bogowith, Kelly A, PT Trochanteric bursitis of right hip (Primary Dx); 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 Discharge Disposition: Discharged to home or Selfcare 07/08/2024 Travel 07/03/2024 2:30 PM CDT Physical Therapy [facility] [address], [place] [address] [place] [address] Cristal Hunt PAC Bogowith, Kelly A, PT Discharge Disposition: Discharged to home or Selfcare 06/30/2024 9:15 AM CDT Physical Therapy [facility] [address], [place] [address] [place] [address] Cristal Hunt PAC Bogowith, Kelly A, PT Trochanteric bursitis of right hip; 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 Discharge Disposition: Discharged to home or Selfcare 06/30/2024 Plan of Care Documentation [facility] at [facility] [address], [address] [address] [address] 06/30/2024 Travel 06/16/2024 Transcribe Orders [facility] [address] [place] [address] Cristal Hunt PAC Trochanteric bursitis of right [...] Description 09/08/2024 9:15 AM CDT Physical Therapy [facility] at [address], [address] [address] Cristal Hunt PAC [address] [facility] [place] [address] Lin Fuller, PT [place] Discharge Disposition: Discharged to home or Selfcare 09/10/2024 10:00 AM CDT Physical Therapy [facility] at [facility] [address], [address] [place] [address] Cristal Hunt PAC [address] [facility] [place] [address] Lin Fuller, PT [place] 09/22/2024 1:30 PM CDT Physical Therapy [facility] [address], [address] [place] [address] Cristal Hunt, PAC [address] [facility] [place] [address] Lin Fuller, PT [place] 10/06/2024 2:15 PM CDT Physical Therapy [facility] [address], [address] [place] [address] Cristal Hunt, PAC [address] [facility] [place] [address] Lin Fuller, PT [place] Health Maintenance Due [...] on patient's age to complete this topic Human Papillomavirus (HPV) Immunization Aged Out No longer eligible based [...] WITH DIFF STAT 07/12/2024 11:55 AM CDT [facility] SCREENING BILATERAL DIGITAL W CAD W LEYLA Routine 01/09/2023 10:21 AM CDT Visit for screening mammogram [facility] BONE DENSITOMETRY AXIAL SKELETON Routine [...] Jimmy Perez M.D. AG: NINA Report ID: [id number] Reading Location: [id number] Procedure Note Jimmy Perez MD - 07/12/2024 [...] Jimmy Perez M.D. AG: NINA Report ID: [id number] Reading Location: [id number] IMPRESSION: Examination is limited by motion artifact [...] Additional findings as above. Siobhan Jimenez MD [facility] ORDERABLES Final Resul t * URINALYSIS REFLEX IF INDICATED BY ABNORMAL RESULTS (07/12/2024 11:55 AM CDT) SPECIFIC GRAVITY 1.010 1.003 - 1.030 07/12/2024 12:24 PM CDT [facility] URINE PH 6.0 5.0 - 9.0 07/12/2024 12:24 PM CDT [facility] WBC ESTERASE Negative Negative 07/12/2024 12:24 PM CDT [facility] NITRITE Negative Negative 07/12/2024 12:24 PM CDT [facility] PROTEIN, RANDOM URINE Negative Negative 07/12/2024 12:24 PM CDT [facility] URINE GLUCOSE, QUAL Negative Negative 07/12/2024 12:24 PM CDT [facility] URINE KETONES Negative Negative 07/12/2024 12:24 PM CDT [facility] UROBILINOGEN Normal Normal mg/dL 07/12/2024 12:24 PM CDT [facility] URINE BLOOD Negative Negative mariano/ul 07/12/2024 12:24 PM CDT [facility] URINALYSIS COLOR Yellow 07/13/19 12:24 PM CDT [facility] URINALYSIS CLARITY Clear 07/12/2024 12:24 PM CDT [facility] Urine URINE SPECIMEN OBTAINED BY CLEAN CATCH PROCEDURE / Unknown Non-Phlebotomy Collection / Unknown 07/12/2024 11:55 AM CDT 07/12/2024 12:18 PM CDT us Siobhan Jimenez MD URINE ORDERABLES Final Result [facility] [address] [place] [address] * CBC with Auto Differential (07/12/2024 11:55 AM CDT) WBC 9.76 4.00 - 12.00 10(3)/mcL 07/12/2024 12:21 PM CDT [facility] RBC 4.24 3.80 - 5.30 10(6)/mcL 07/12/2024 12:21 PM CDT [facility] HEMOGLOBIN (HGB) 12.4 12.0 - 15.8 g/dL 07/12/2024 12:21 PM CDT [facility] HEMATOCRIT (HCT) 37.7 36.0 - 47.0 % 07/12/2024 12:21 PM CDT [facility] MCV 88.9 82.0 - 96.0 fL 07/12/2024 12:21 PM CDT [facility] MCH 29.2 26.0 - 34.0 pg 07/12/2024 12:21 PM CDT [facility] MCHC 32.9 31.0 - 36.0 g/dL 07/12/2024 12:21 PM CDT [facility] PLATELET COUNT 369 140 - 440 10(3)/mcL 07/12/2024 12:21 PM CDT [facility] RDW 13.0 11.8 - 15.5 % 07/12/2024 12:21 PM CDT [facility] MPV 11.0 9.7 - 12.4 fL 07/12/2024 12:21 PM CDT [facility] NEUTROPHILS 66.9 47.0 - 73.0 % 07/12/2024 12:21 PM CDT [facility] LYMPHOCYTES 22.4 18.0 - 42.0 % 07/12/2024 12:21 PM CDT [facility] MONOCYTES 7.4 4.0 - 12.0 % 07/12/2024 12:21 PM CDT [facility] EOSINOPHILS 2.7 0.0 - 5.0 % 07/12/2024 12:21 PM CDT [facility] BASOPHILS 0.6 0.0 - 1.0 % 07/12/2024 12:21 PM CDT [facility] ABSOLUTE NEUTROPHILS 6.53 1.60 - 7.70 10(3)/mcL 07/12/2024 12:21 PM CDT [facility] ABSOLUTE LYMPHOCYTES 2.19 1.30 - 3.20 10(3)/mcL 07/12/2024 12:21 PM CDT [facility] ABSOLUTE MONOCYTES 0.72 0.20 - 1.00 10(3)/mcL 07/12/2024 12:21 PM CDT [facility] ABSOLUTE EOSINOPHIL 0.26 0.00 - 0.40 10(3)/mcL 07/12/2024 12:21 PM CDT [facility] ABSOLUTE BASOPHILS 0.06 0.00 - 0.10 10(3)/mcL 07/12/2024 12:21 PM CDT [facility] NRBC PER 100 WBC 0 07/13/19 12:21 PM CDT [facility] Blood Venipuncture / Unknown 07/12/2024 11:55 AM CDT 07/12/2024 12:18 PM CDT us Siobhan Jimenez MD HEMATOLOGY ORDERABLES Final R esult [facility] [address] [place] [address] * (ABNORMAL) Comprehensive Metabolic Panel (Cmp) [id number] (07/12/2024 11:55 AM CDT) SODIUM 134(L) 136 - 145 mmol/L 07/12/2024 12:48 PM CDT [facility] POTASSIUM 4.5 3.5 - 5.1 mmol/L 07/12/2024 12:48 PM CDT [facility] CHLORIDE 103 98 - 107 mmol/L 07/12/2024 12:48 PM CDT [facility] CO2, VENOUS 23 22 - 30 mmol/L 07/12/2024 12:48 PM CDT [facility] ANION GAP 12.5 <18.0 mmol/L 07/12/2024 12:48 PM CDT [facility] GLUCOSE 91 70 - 99 mg/dL 07/12/2024 12:48 PM CDT [facility] BUN 15 10 - 20 mg/dL 07/12/2024 12:48 PM CDT [facility] CREATININE, BLOOD 0.81 0.60 - 1.00 mg/dL 07/12/2024 12:48 PM CDT [facility] BUN/CREATININE RATIO 19 12 - 20 ratio 07/12/2024 12:48 PM CDT [facility] TOTAL PROTEIN 7.7 6.0 - 8.0 g/dL 07/12/2024 12:48 PM CDT [facility] ALBUMIN 4.4 3.5 - 5.0 g/dL 07/12/2024 12:48 PM CDT [facility] A/G RATIO 1.3 1.0 - 2.2 07/12/2024 12:48 PM CDT [facility] CALCIUM 9.6 8.7 - 10.5 mg/dL 07/12/2024 12:48 PM CDT [facility] T BILI 0.4 0.2 - 1.2 mg/dL 07/12/2024 12:48 PM CDT [facility] SGOT (AST) 31 <43 U/L 07/12/2024 12:48 PM CDT [facility] SGPT (ALT) 24 <56 U/L 07/12/2024 12:48 PM CDT [facility] ALKALINE PHOSPHATASE 83 40 - 150 U/L 07/12/2024 12:48 PM CDT [facility] GFR, ESTIMATED >60 >=60 07/12/2024 12:48 PM CDT [facility] Comment: Creatinine Clearance is the preferred criteria for selecting drug dose adjustments in renally impaired patients. The GFR is provided as additional pertinent clinical information. GFR is reported in mL/min/1.73 sq m. Calculation based on the Chronic Kidney Disease Epidemiology Collaboration (CKD- EPI) equation refit without adjustment for race. GFR, EST. >60 >=60 025 12:48 PM CDT [facility] GFR, EST. NONAFRICAN >60 >=60 07/12/2024 12:48 PM CDT [facility] Blood Venipuncture / Unknown 07/12/2024 11:55 AM CDT 07/12/2024 12:18 PM CDT us Siobhan Jimenez MD CHEMISTRY ORDERABLES Final Re sult [facility] [address] [place] [address] * ELENITA SCREENING BILATERAL DIGITAL W CAD [...] to exams dated: 06/15/2019, 02/20/2018, and 12/05/2016 [facility]. BREAST TISSUE:The tissue of both breasts is [...] a target due date of 1 year [id number]|2024-09-07 15:36:00|2024-09-07 15:36:00|XMS_ITS|BKG DAEMON|External Medical Summaries|[id number]|" Clinical Summary Created on: September 07, 2024 Kellee Cerna : 1950 Sex: Female Author Organization [facility] Address [address] [facility] [place] [address] Care Team Providers Care Subsystems Engineer Name Role Phone Hugh Sierra MD Unavailable Adam Wiggins MD Primary Care Provider [phone] Source Comments [facility],non-owned Affiliates and Associated Physician Practices is [facility] consisting of ambulatory clinics and hospital sitesin [place], [place], [place] and [place]. This disclosure is being madepursuant to the Care Everywhere program and may not contain all information available regarding this patient. Last updated 18.[facility] Allergies Active Allergy Reactions Criticality Noted Date Comments Erythromycin Nausea and/or Vomiting 03/01/2014 Nickel 08/11/2013 RASH --DR. SIERRA IS AWARE Penicillins Rash Low 03/06/2013 Medications [...] by mouth as needed. Active Probiotic Product (Timescape PO) Take 1 Tab by mouth at [...] Comments Blood Pressure 102/66 03/03/2014 8:24 AM PRINTING MACHINE MECHANIC Pulse 101 03/03/2014 8:24 AM PRINTING MACHINE MECHANIC Temperature 37.1 C (98.8 F) 03/03/2014 8:24 AM PRINTING MACHINE MECHANIC Respiratory Rate 18 03/03/2014 8:24 AM PRINTING MACHINE MECHANIC Oxygen Saturation 93% 03/03/2014 8:24 AM PRINTING MACHINE MECHANIC Inhaled Oxygen Concentration - - Weight 80.9 kg (178 lb 6.4 oz) 03/01/2014 7:54 A M PRINTING MACHINE MECHANIC Height 152.4 cm (5') 03/01/2014 7:54 AM PRINTING MACHINE MECHANIC Body Mass Index 34.84 03/01/2014 7:54 AM PRINTING MACHINE MECHANIC Plan of Treatment Health Maintenance Due Date Last Done Comments BONE DENSITY TESTING 1950 MEDICARE AWV 12 MONTHS 1950 HEPATITIS C SCREENING 04/04/1966 DTAP/TDAP/TD VACCINES (1 - Tdap) 1967 ZOSTER VACCINE (1 of 2) 1998 PNEUMOCOCCAL VACCINE 50+ (2 of 2 - PCV) 03/03/2015 03/03/2014 Respiratory Syncytial Virus (RSV) Vaccine Pt: or over 60 yrs (1 - 1-dose 75+ series) 2023 COVID-19 VACCINE ( - 2023-2 5 season) 2023 DEPRESSION SCREENING [...] this topic Medical Devices Implanted Type Area Sales Team Recruiter Device Identifier Shelf Expiration Date Model / Serial / Lot Beny Bone [place] Implanted:Qty: 1 on 08/31/2013 by Hugh Sierra MD at [facility] Left: Knee [employer] 03/21/2015 [id number] / / [id number] Stem Fem Maxim I-Beam Prim 40mm Implanted:Qty: 1 on 08/31/2013 by Hugh Sierra MD at [facility] Left: Knee [employer] 04/21/2023 [id number] / / [id number] Titanium Femoral Implant 62.5mm Left Implanted:Qty: 1 on 08/31/2013 by Hugh Sierra MD at [facility] Left: Knee 01/19/2023 [id number] / / [id number] Ty Tibial Prim Intlok 71mm Implanted:Qty: 1 on 08/31/2013 by Hugh Sierra MD at [facility] Left: Knee [employer] 07/21/2023 [id number] / / [id number] Butn Pat Arcom Wire Polyeth Sm 31 X 8mm Implanted:Qty: 1 on 08/31/2013 by Hugh Sierra MD at [facility] Left: Knee [employer] 06/19/2018 [id number] / / [id number] Brdg Tib Pratima Stbl 12mm X 71mm Implanted:Qty: 1 on 08/31/2013 by Hugh Sierra MD at [facility] Left: Knee [employer] 08/19/2018 [id number] / / [id number] Stem Fem Maxim I-Beam Prim 40mm Implanted:Qty: 1 on 03/01/2014 by Hugh Sierra MD at [facility] Right: Knee [employer] 08/20/2023 [id number] / / [id number] Ty Tibial Prim Intlok 67mm Implanted:Qty: 1 on 03/01/2014 by Hugh Sierra MD at [facility] Right: Knee [employer] 07/21/2023 [id number] / / [id number] Mohinder Pauld Brg 10mm X 67mm Implanted:Qty: 1 on 03/01/2014 by Hugh Sierra MD at [facility] Right: Knee [employer] 10/19/2014 [id number] / / [id number] Beny Bone [place] Hv Implanted:Qty: 1 on 03/01/2014 by Hugh Sierra MD at [facility] Right: Knee [employer] 11/20/2015 [id number] / / [id number] Butn Pat Arcom Wire Polyeth Sm 31 X 8mm Implanted:Qty: 1 on 03/01/2014 by Hugh Sierra MD at [facility] Right: Knee [employer] 02/19/2019 [id number] / / [id number] Titanium Femoral Implant 60mm Right Implanted:Qty: 1 on 03/01/2014 by Hugh Sierra MD at [facility] Right: Knee [employer] 07/21/2023 [id number] / / [id number] Insurance MEDICARE [facility] MEDICARE [facility] Advance Directives Documents on File Type Date Recorded 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
--- OUTSIDE RECORDS SUMMARY | 2024-09-07 15:37 | XMS_ITS | Encounter Summary ---
Author Organization [facility] Address [address] [place] [address] Phone Care Team Providers Care Metrology Engineer Name Role Phone Adam Wiggins MD Primary Care Provider David Henriquez MD Unavailable Stas Malin MD Unavailable [phone] Reason for Visit * Reason Comments Medication Refill Encounter Details Date Type Department Care Team (Late st Contact Info) Description 07/05/2022 Refill [facility] [address] [place] [phone] Stas Malin MD [address] [place] [address] Medication Refill Social History Tobacco [...] Description 09/08/2024 9:15 AM CDT Physical Therapy [facility] at [address], [place] [address] [place] [address] Cristal Hunt PAC [address] [facility] [place] [address] Lin Fuller, PT [place] Discharge Disposition: Discharged to home or Selfcare 09/10/2024 10:00 AM CDT Physical Therapy [facility] at [address], [place] [address] [place] [address] Cristal Hunt PAC [address] [facility] [address] [place] [address] Lin Fuller, PT [place] 09/22/2024 1:30 PM CDT Physical Therapy [facility] at [address], [address] [place] [address] Cristal Hunt PAC [address] [facility] [address] [place] [address] Lin Fuller, PT [place] 10/06/2024 2:15 PM CDT Physical Therapy [facility] at [address], [address] [address] [place] [address] Cristal Hunt PAC [address] [facility] [place] [address] Lin Fuller, PT [place] documented as of this encounter Visit Diagnoses Not on filedocumented in this encounter Care Teams Metrology Engineer Relationship Specialty Start Date End Date Adam Wiggins MD [address] [place] [phone] PCP - General 06/08/15 David Henriquez MD [address] [address] Consulting Physician Colon and Rectal Surgery 10/09/23 Stas Malin MD [address] [place] [address] Consulting Physician Medical Oncology 06/05/23 documented as of this encounter
--- OUTSIDE RECORDS SUMMARY | 2024-09-07 15:37 | XMS_ITS | Encounter Summary ---
Author Organization [facility] Address [address] [place] [address] Care Team Providers Care Signal Fitter Name Role Phone Adam Wiggins MD Primary Care Provider [phone] Encounter Details Date Type Department Care Team (Latest Contact Info) Description 07/14/2024 Results Follow-Up [facility] Precision Medicine at the [facility] Medicine [address] [place] [address] Dolores Long, MULTI CANCER EARLY DETECTION Social [...] often do you attend chur ch or sabianism services? Never 02/26/2019 Do you belong to any clubs o r organizations such as confucianism groups, unions, fraternal or athletic groups, or [...] on file Legal Sex Female 5:28 AM OBSTETRICS GYNECOLOGY MD Gender Identity Not on file Sexual Orientation Straight 02/05/2024 6: 22 PM CDT Occupation Industry Job Start Date Job End Date RETIRED Not on file Not on file Not on file documented as of this encounter Plan of Treatment Upcoming Encounters Date Type Department Care Team (Late st Contact Info) Description 11/13/2024 11:20 AM CDT Office Visit [facility] Primary Care [address] [place] [address] Adam Wiggins MD [address] [place] [address] [address] [place] [address] documented as of this encounter Visit Diagnoses Not on filedocumented in this encounter Care Teams Signal Fitter Relationship Specialty Start Date End Date Adam Wiggins MD PCP - General 07/21/07 documented as of this encounter
--- OUTSIDE RECORDS SUMMARY | 2024-09-07 15:37 | XMS_ITS | Clinical Summary ---
Author Organization [facility] Address [address] [place] [address] Care Team Providers Care Silviculture Professor Name Role Phone Adam Wiggins MD Primary Care Provider [phone] Allergies Active Allergy Reactions Criticality Noted Date [...] High 02/10/2007 Other reaction(s): Rash; Hives Medications multivitamins-mine rals-lutein (CENTRUM SILVER) Tablet Take 1 Tab by mouth daily. Active L. acidophilus/pectin , citrus (ACIDOPHILUS PROBIOTIC ORAL) Take 1 Tablet [...] Active DULoxetine (CYMBALTA) 60 mg Capsule, Delayed Release(E.C.)Indic ations:Other depression TAKE 1 CAPSULE EVERY DAY 100 Capsule 3 12/20/19 24 Active Synthroid 137 mcg tabletIndications: Other specified hypothyroidism take 1 tablet every day 90 Tablet 3 01/27/20 24 Active fluticasone propionate (FLONASE) 50 mcg/spray [place], Suspension nasal inhaler use 2 sprays in each nostril every day 48 Gram 3 01/27/20 24 Active olmesartan (BENICAR) 40 mg tabletIndications: Primary hypertension take 1 tablet every day 90 Tablet 3 01/27/20 24 Active montelukast (SINGULAIR) 10 mg tablet take 1 tablet every day 90 Tablet 3 01/27/20 24 Active omeprazole (PriLOSEC) 40 mg Capsule, Delayed Release(E.C.) TAKE 1 CAPSULE EVERY DAY (SUBSTITUTED FOR PRILOSEC) 90 Capsule 3 01/27/20 24 Active amLODIPine (NORVASC) 2.5 mg tabletIndications: Primary hypertension take 1 tablet at bedtime 90 [...] 24 Active triamcinolone acetonide (KENALOG) 0.1 % OintmentIndication s:Rash Apply to affected area 2 times daily. 80 Gram 1 01/29/20 24 Active pregabalin (Lyrica) 75 mg CapsuleIndications :Avascular necrosis of bone of hip, right (CMS/HCC) Take 1 Capsule (75 mg) by mouth daily at bedtime. 30 Capsule 3 02/12/20 24 Active Additional Information Patient not taking.Reported on 06/01/2024 gabapentin (NEURONTIN) 400 mg capsule Take 1 Capsule (400 mg) by mouth 4 times daily. 360 Capsule 3 02/15/20 24 Active temazepam (RESTORIL) 30 mg capsuleIndications :Other insomnia TAKE 1 CAPSULE BY MOUTH AT BEDTIME NEEDED FOR INSOMNIA 30 Capsule 3 02/18/20 24 Active pravastatin (PRAVACHOL) 10 mg tabletIndications: Other hyperlipidemia TAKE 1 TABLET AT BEDTIME 90 Tablet 3 04/08/20 24 Active buPROPion HCL (WELLBUTRIN SR) 100 mg Sustained Release 12 hour tabletIndications: Other depression TAKE 1 TABLET TWICE DAILY 180 Tablet 3 04/08/20 24 Active Additional Information Patient not taking.Reported on 06/01/2024 glycopyrrolate (ROBINUL) 2 mg Tablet TAKE 1 TABLET TWICE DAILY 180 Tablet 3 06/21/19 25 Active HYDROcodone-acetam inophen (NORCO) 5-325 mg tabletIndications: Lumbar radiculopathy Take 1 Tablet by mouth every 4 hours as needed for Pain, Moderate. Max Daily Amount: 6 Tablets 42 Tablet 07/21/19 25 Active temazepam (RESTORIL) 30 mg capsuleIndications :Other insomnia TAKE 1 CAPSULE BY MOUTH NIGHTLY NEEDED FOR INSOMNIA. DX INSOMNIA, OK FILL EARLY DUE TO TRAVEL 30 Capsule 3 08/05/19 25 Active Active Problems Patient Care Coordination No te Formatting of this note migh t be different from the original. Jorge iraheta [id number] 07/06/21 ANNUAL MEDICARE AUTOMOBILE SALES REPRESENTATIVE 02/26/19 Problem Noted Date Diagnosed Date Prediabetes [...] Date Type Department Care Team Description 09/03/2024 Orders Only [address] [place] [address] Provider, Abstract 09/03/2024 Abstract [address] [place] [address] Provider, Abstract 08/26/2024 Orders Only [address] [place] [address] Provider, Abstract 08/03/2024 Refill [address] [place] [address] Adam Wiggins MD Other insomnia 07/19/2024 Refill [facility] [address] [place] [address] Adam Wiggins MD Lumbar radiculopathy 07/14/2024 Results Follow-Up [facility] Precision Medicine at the [facility] [address] [place] [address] Dolores Long, MULTI CANCER EARLY DETECTION 07/08/2024 External Device Data STL ABSTRACTION Provider, Abstract 07/03/2024 11:13 AM CDT - 07/03/2024 11:59 PM CDT Hospital Encounter [facility] Laboratory Services [address] [place] [address] Helena Mccray, KIMBERLY Cancer screening Discharge Disposition: Home or Self Care 06/27/2024 External Device Data STL ABSTRACTION Provider, Abstract 06/27/2024 External Device Data STL ABSTRACTION Provider, Abstract 06/25/2024 9:00 AM EXHIBITS COORDINATOR Telephone [facility] Medicine at the [facility] [address] [place] [address] Linda Gaitan RN MCEAndre 06/24/2024 External Device Data STL ABSTRACTION Provider, Abstract 06/20/2024 Refill [facility] [address] [place] [address] Di Ruiz, LYN 06/12/2024 Orders Only [facility] [address] [place] [address] Provider, Abstract 06/12/2024 Abstract [facility] [address] [place] [address] [address] [place] [address] Adam Wiggins MD 06/10/2024 External Device Data STL ABSTRACTION Provider, Abstract 06/10/2024 Telephone [facility] Precision Medicine at the [facility] [address] [place] [address] Helena Mccray, CITY DESIGNER MCED Referral (Spoke to patient.) from Last 3 Months Immunizations Immunization Administration [...] often do you attend chur ch or jainism services? Never 02/26/2019 Do you belong to any clubs o r organizations such as sabianist groups, unions, fraternal or athletic groups, or [...] on file Legal Sex Female 5:28 AM EXHIBITS COORDINATOR Gender Identity Not on file Sexual Orientation Straight 02/05/2024 6: 22 PM CDT Occupation Industry Job Start Date Job End Date RETIRED Not on file Not on file Not on file Last Filed Vital Signs Vital Sign Reading Time Taken Comments Blood Pressure 134/78 06/01/2024 1:14 PM EXHIBITS COORDINATOR Pulse 78 06/01/2024 1:14 PM EXHIBITS COORDINATOR Temperature 36.9 C (98.4 F) 06/01/2024 1:14 PM EXHIBITS COORDINATOR Respiratory Rate 19 12/14/2022 10:19 AM CDT Oxygen Saturation 97% 06/01/2024 1:14 PM EXHIBITS COORDINATOR Inhaled Oxygen Concentration - - Weight 81.2 kg (179 lb) 06/01/2024 1:14 PM EXHIBITS COORDINATOR Height 152.4 cm (5') 06/01/2024 1:14 PM EXHIBITS COORDINATOR Body Mass Index 34.96 06/01/2024 1:14 PM EXHIBITS COORDINATOR Plan of Treatment Upcoming Encounters Date Type Department Care Team (Late st Contact Info) Description 11/13/2024 11:20 AM CDT Office Visit [facility] Primary Care [address] [place] [address] Adam Wiggins MD [address] [facility] [address] [place] [address] Health Maintenance Due Date Last [...] years Discontinued Medical Devices Implanted Type Area Fairing Worker Device Identifier Shelf Expiration Date Model / Serial / Lot Sling Obtryx2 Trnsobt Mid-Uret Crv [id number] - [id number] Implanted:Qty: 1 on 10/17/2021 by Le Denny MD at [facility] Sling N/A: Vagina [place] SCI- UROLOGY/[place] DEPARTMENT SUPERVISOR [id number] 08/20/2024 [id number] / / [id number] Bilateral Knee Replacements Bladder Sling Procedures Procedure Name Priority Date/Time Associated Diagnosis Comments AMB REFERRAL TO NEUROLOGY Routine 08/19/2024 2:[address] SINUS FACIAL BONES W WO CONT Routine 08/03/2024 12:10 PM CDT MULTI CANCER EARLY DETECTION Routine 07/14/2024 12:23 PM CDT Cancer screening ENDOSCOPY, COLON, SCREENING Routine 05/13/2024 4:32 PM EXHIBITS COORDINATOR XR DEXA BONE DENSITY AXIAL 1 OR MORE SITES Routine 02/20/2018 Menopause from Last 3 Months or Most Recently Relevant to Health Maintenance Results * AMB REFERRAL TO NEUROLOGY (08/19/2024 2:00 PM CDT) us Abstract Provider OUTPATIENT REFERRALS Final Res ult Performing Organization Address [facility] Co de Phone Number [facility] CLIA# [id number] [address] [facility] [address] [place] [address] * CT SINUS FACIAL BONES W WO CONT (08/03/2024 12:10 PM CDT) Anatomical Region Laterality Modality Head Computed Tomogra phy us Abstract Provider CT ORDERABLES Edited Result - Final * MULTI CANCER EARLY DETECTION (07/14/2024 12:23 PM CDT) MCED SIGNAL NO CANCER SIGNAL DETECTED GRAIL Comment:The Galleri test res ults report PDF document is the official source of the test result and contains important information regarding the Galleri test and the patient's test results. Please read the official report for complete results. Blood us David Lambert MD CHEMISTRY ORDERABLES Final Re sult Performing Organization Address [facility] Co de Phone Number KIMBER LARSEN #[id number] [address] [place] [address] * ENDOSCOPY, COLON, SCREENING (05/13/2024 4:32 PM EXHIBITS COORDINATOR) us Abstract Provider GI PROCEDURE ORDERABLES Edited Result - Final Performing Organization Address [facility] Co de Phone Number [facility] CLIA# [id number] [address] [facility] [address] [place] [address] * XR DEXA BONE DENSITY AXIAL 1 OR MORE SITES (02/20/2018) Anatomical Region Laterality Modality Other us Adam Wiggins MD DIAGNOSTIC IMAGING ORDERABLES Final Result from Last 3 Months or Most Recently Relevant to Health Maintenance Insurance MEDICARE PART A AND B BCBS BLUE ACCESS/TRUE BLUE PPO RX [employer] Medicare Part D Advance Directives For more information, please contact: [phone] * Full Code (Latest Code Status on File) Date Activated Date Inactivated Comments 10/17/2021 6:00 AM 10/18/2021 1:23 PM Care Teams Silviculture Professor Relationship Specialty Start Date End Date Adam Wiggins MD PCP - General 07/21/07
== END 2024-09-07 15:32 | disposition home or self-care (01) ==
PROVIDERS: PCP Internal Medicine; Visit Provider Plastic Surgery
DX: Z01.810 Encounter for preprocedural cardiovascular examination (principal); I44.7 Left bundle-branch block, unspecified; I10 Essential (primary) hypertension; E78.5 Hyperlipidemia, unspecified
CPT/HCPCS: 93005

== ENCOUNTER 2024-09-17 05:52 | Day surgery (SDC) | payer MEDICARE, SELFPAY ==
[2024-08-27 10:37] VITALS: BMI 35.0
[2024-08-28 09:01] VITALS: BMI 35.3
--- NOTE | 2024-09-10 11:10 | PC.NURSE ---
EKD reviewed per anesthesia. OK to proceed with procedure at [facility] per Dr. Ocampo.
--- OUTSIDE RECORDS SUMMARY | 2024-09-17 06:03 | XMS_ITS | Encounter Summary ---
Author Organization [facility] Address [address] [place] [address] Care Team Providers Care Auto Parts Professional Name Role Phone Adam Wiggins MD Primary Care Provider [phone] Encounter Details Date Type Department Care Team (Late st Contact Info) Description 02/10/2007 Outpatient Historical [facility] Internal Medicine [address] [address] Adam Wiggins MD [address] [place] [address] Social History Tobacco Use Types Packs/Day Years Used Date Smoking Tobacco: Never Assessed Comments Unknown Sex and Gender Information Value Date Recorded Sex Assigned at Not on file Legal Sex Female 5:28 AM 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
--- OUTSIDE RECORDS SUMMARY | 2024-09-17 06:03 | XMS_ITS | Clinical Summary ---
Author Organization [facility] Address [address] [place] [address] Care Team Providers Care Director Employee Communications Name Role Phone Adam Wiggins MD Primary Care Provider Allergies Active Allergy Reactions Criticality Noted Date [...] 24 Active fluticasone propionate (FLONASE) 50 mcg/spray [place], Suspension nasal inhaler use 2 sprays in [...] original. Jorge iraheta [id number] 07/06/21 ANNUAL MEDICARE PHOTO TECHNOLOGIST 02/26/19 Problem Noted Date Diagnosed Date Prediabetes [...] Encounters Date Type Department Care Team Description 09/10/2024 External Device Data STL ABSTRACTION Provider, Abstract 09/03/2024 Orders Only [place] [address] [facility] [address] [place] [address] Provider, Abstract 09/03/2024 Abstract [place] [address] [place] [address] Provider, Abstract 08/26/2024 Orders Only [place] [address] [place] [address] Provider, Abstract 08/03/2024 Refill [place] [address] [place] [address] Adam Wiggins MD Other insomnia 07/19/2024 Refill [facility] Primary Care [facility] [address] [facility] [address] [place] [address] Adam Wiggins MD Lumbar radiculopathy 07/14/2024 Results Follow-Up [facility] Medicine at the [facility] [address] [place] [address] Dolores Long, MULTI CANCER EARLY DETECTION 07/08/2024 External Device Data STL ABSTRACTION Provider, Abstract 07/03/2024 11:13 AM CDT - 07/03/2024 11:59 PM CDT Hospital Encounter [facility] Laboratory Services [address] [place] [address] Helena Mccray, KIMBERLY Cancer screening Discharge Disposition: Home or Self Care 06/27/2024 External Device Data STL ABSTRACTION Provider, Abstract 06/27/2024 External Device Data STL ABSTRACTION Provider, Abstract 06/25/2024 9:00 AM CLIENT CARE REPRESENTATIVE Telephone [facility] Medicine at the [facility] [address] [place] [address] Linda Gaitan, RN MCED 06/24/2024 External Device Data STL ABSTRACTION Provider, Abstract 06/20/2024 Refill [facility] Primary Care [facility] [address] [facility] [address] [place] [address] Di Ruiz FNP from Last 3 Months Immunizations Immunization Administration [...] Cancer Father Kellee Read Diabetes Maternal Grandmother Jessiac Staudacher Anemia Mother Sandrine Read Pernicious Heart Disease [...] often do you attend chur ch or hoahaoism services? Never 02/26/2019 Do you belong to any clubs o r organizations such as mosque groups, unions, fraternal or athletic groups, or [...] on file Legal Sex Female 5:28 AM CLIENT CARE REPRESENTATIVE Gender Identity Not on file Sexual Orientation Straight 02/05/2024 6: 22 PM CDT Occupation Industry Job Start Date Job End Date RETIRED Not on file Not on file Not on file Last Filed Vital Signs Vital Sign Reading Time Taken Comments Blood Pressure 134/78 06/01/2024 1:14 PM CLIENT CARE REPRESENTATIVE Pulse 78 06/01/2024 1:14 PM CLIENT CARE REPRESENTATIVE Temperature 36.9 C (98.4 F) 06/01/2024 1:14 PM CLIENT CARE REPRESENTATIVE Respiratory Rate 19 12/14/2022 10:19 AM CDT Oxygen Saturation 97% 06/01/2024 1:14 PM CLIENT CARE REPRESENTATIVE Inhaled Oxygen Concentration - - Weight 81.2 kg (179 lb) 06/01/2024 1:14 PM CLIENT CARE REPRESENTATIVE Height 152.4 cm (5') 06/01/2024 1:14 PM CLIENT CARE REPRESENTATIVE Body Mass Index 34.96 06/01/2024 1:14 PM CLIENT CARE REPRESENTATIVE Plan of Treatment Upcoming Encounters Date Type Department Care Team (Late st Contact Info) Description 11/13/2024 11:20 AM CDT Office Visit [facility] Primary Care [address] [place] [address] Adam Wiggins MD [address] [place] [address] [address] [place] [address] Health Maintenance Due Date Last Done Comments [...] years Discontinued Medical Devices Implanted Type Area Orthopedic Surgeon Device Identifier Shelf Expiration Date Model / Serial / Lot Sling Obtryx2 Trnsobt Mid-Uret Crv [id number] - [id number] Implanted:Qty: 1 on 10/17/2021 by Le Denny MD at [facility] Sling N/A: Vagina [place] SCI- UROLOGY/LABOR CONTRACTOR [id number] 08/20/2024 [id number] / / [id number] Bilateral Knee Replacements Bladder Sling Procedures Procedure Name Priority Date/Time Associated Diagnosis Comments AMB REFERRAL TO NEUROLOGY Routine 08/19/2024 2:[address] SINUS FACIAL BONES W WO CONT Routine 08/03/2024 12:10 PM CDT MULTI CANCER EARLY DETECTION Routine 07/14/2024 12:23 PM CDT Cancer screening ENDOSCOPY, COLON, SCREENING Routine 05/13/2024 4:32 PM CLIENT CARE REPRESENTATIVE XR DEXA BONE DENSITY AXIAL 1 OR MORE SITES Routine 02/20/2018 Menopause from Last 3 Months or Most Recently Relevant to Health Maintenance Results * AMB REFERRAL TO NEUROLOGY (08/19/2024 2:00 PM CDT) us Abstract Provider OUTPATIENT REFERRALS Final Res ult [facility] CLIA# [id number] [address] [address] * CT SINUS FACIAL BONES W WO CONT (08/03/2024 12:10 PM CDT) Anatomical Region Laterality Modality Head Computed Tomogra phy us Abstract Provider CT ORDERABLES Edited Result - Final * MULTI CANCER EARLY DETECTION (07/14/2024 12:23 PM CDT) MCED SIGNAL NO CANCER SIGNAL DETECTED KIMBER Comment:The Galleri test res ults report PDF document is the official source of the test result and contains important information regarding the Galleri test and the patient's test results. Please read the official report for complete results. Blood us David Lambert MD CHEMISTRY ORDERABLES Final Re sult KIMBER LARSEN #[id number] [facility] [place] [address] * ENDOSCOPY, COLON, SCREENING (05/13/2024 4:32 PM CLIENT CARE REPRESENTATIVE) us Abstract Provider GI PROCEDURE ORDERABLES Edited Result - Final Performing Organization Address City/[facility]/ZIP Co de Phone Number [facility] CLIA# [id number] [address] [address] * XR DEXA BONE DENSITY AXIAL 1 OR MORE SITES (02/20/2018) Anatomical Region Laterality Modality Other us Adam Wiggins MD DIAGNOSTIC IMAGING ORDERABLES Final Result from Last 3 Months or Most Recently Relevant to Health Maintenance Insurance MEDICARE PART A AND B [employer] BLUE ACCESS/TRUE BLUE PPO RX [employer] Medicare Part D Advance Directives For more information, please contact: [phone] * Full Code (Latest Code Status on File) Date Activated Date Inactivated Comments 10/17/2021 6:00 AM 10/18/2021 1:23 PM Care Teams Director Employee Communications Relationship Specialty Start Date End Date Adam Wiggins MD PCP - General 07/21/07
--- OUTSIDE RECORDS SUMMARY | 2024-09-17 06:03 | XMS_ITS | Encounter Summary ---
Author Organization [facility] Address 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 PHARMACY NUMBER: [phone] PROBLEMS: patient missed appt unable to leave [...] Description 11/13/2024 11:20 AM CDT Office Visit [facility] [place] [address] Adam Wiggins MD [address] [place], [place] [id number] documented as of this encounter Visit Diagnoses Not on filedocumented in this encounter Care Teams Clerk Relationship Specialty Start Date End Date Adam Wiggins MD PCP - General 07/21/07 documented as of this encounter
--- OUTSIDE RECORDS SUMMARY | 2024-09-17 06:03 | XMS_ITS | Encounter Summary ---
Author Organization [facility] Address [address] [place] [address] Phone Care Team Providers Care Co Chairman Name Role Phone Adam Wiggnis MD Primary Care Provider [phone] David Henriquez MD Unavailable Stas Malin MD Unavailable [phone] Reason for Visit * Reason Comments Medication Refill Encounter Details Date Type Department Care Team (Late st Contact Info) Description 07/05/2022 Refill [facility] Oncology Services [address] [place] [address] Stas Malin MD [address] [place] [address] Medication Refill Social History Tobacco [...] Care Team (Late st Contact Info) Description 09/21/2024 2:00 PM CDT Physical Therapy [facility] at [facility] [address] [place] , [place] [address] [place] [address] Cristal Hunt, PAC [address] [place] [address] Lin Fuller, PT [place] Discharge Disposition: Discharged to home or Selfcare 09/23/2024 9:00 AM CDT Physical Therapy [facility] at [facility] [address] [facility], [place] [address] [place] [address] Cristal Hunt PAC [address] [place] [address] Lin Fuller, PT [place] 10/06/2024 2:15 PM CDT Physical Therapy [facility] at [facility] [address] [place] [address] Cristal Hunt PAC [address] [place] [address] Lin Fuller, PT [place] documented as of this encounter Visit Diagnoses Not on filedocumented in this encounter Care Teams Co Chairman Relationship Specialty Start Date End Date Adam Wiggisn MD [address] [place] [address] PCP - General 06/08/15 David Henriquez MD [address] [place] [address] [place] [address] Consulting Physician Colon and Rectal Surgery 10/09/23 Stas Malin MD [address] [place] [address] Consulting Physician Medical Oncology 06/05/23 documented as of this encounter
--- OUTSIDE RECORDS SUMMARY | 2024-09-17 06:03 | XMS_ITS | Referral Summary ---
Author Organization [facility] Medical Office Building B Address [address] [place] [address] Care Team Providers Care Booking Agent Name Role Phone Kathleen Subramanian MD Primary Care Provider + Yosi Luna MD Unavailable [phone] Encounters Date Type Department Care Team Description 07/31/2024 11:45 AM CDT Office Visit [facility] Orthopedics and Sports Medicine [address] [facility] [address] [place] [address] Ailyn Marshall NP Trochanteric bursitis of right hip (Primary Dx); It band syndrome, right from Last 3 Months Allergies Active Allergy [...] INTO EACH NOSTRIL DAILY 8 Active Lacto.acidophil [facility] [[email or web address]]Bif.animalis 32 billion cell capsuleIndicati ons:probiotic for healthy [...] on file Legal Sex Female 7:59 PM CASHIER SELF SERVICE GASOLINE Gender Identity Not on file Sexual Orientation Not on file Last Filed Vital Signs Vital Sign Reading Time Taken Comments Blood Pressure 137/66 07/31/2024 11:39 AM CDT Pulse 93 07/31/2024 11:39 AM CDT Temperature 36.7 C (98 F) 05/13/2024 9:42 AM CASHIER SELF SERVICE GASOLINE Respiratory Rate 18 05/13/2024 9:42 AM CASHIER SELF SERVICE GASOLINE Oxygen Saturation 98% 05/13/2024 9:42 AM CASHIER SELF SERVICE GASOLINE Inhaled Oxygen Concentration - - Weight 82.6 kg (182 lb) 07/31/2024 11:39 AM CDT Height 149.9 cm (4' 11 ) 07/31/2024 11:39 AM CDT Body Mass Index 36.76 07/31/2024 11:39 AM CDT Plan of Treatment Not on file Medical Devices Implanted Type Area Registered Nurse Hh Case Manager Device Identifier Shelf Expiration Date Model / Serial / Lot [employer] Liner Acetabular Hip Standard Emphasys Aox 35w57qu Polyethylene [id number] - [id number] Implanted:Qty: 1 on 02/19/2024 by Yosi Luna MD at [facility] Right: Hip [employer] [id number] 12/20/2028 [id number] / / [id number] [employer] Shell Acetabular Hip Porous 3 Hole Coated Emphasys 50mm Titanium [id number] - [id number] Implanted:Qty: 1 on 02/19/2024 by Yosi Luna MD at [facility] Right: Hip [employer] 12/20/2033 [id number] / / [id number] [employer] [place] 6.5mm 35mm Acetabular Cancellous Screw Bone Sterile 1217-35-500 - [id number] Implanted:Qty: 1 on 02/19/2024 by Yosi Luna MD at [facility] Right: Hip [employer] 10/19/2033 1217-35-500 / / [id number] [employer] [place] 6.5mm 25mm Acetabular Cancellous Screw Bone Sterile 1217-25-500 - [id number] Implanted:Qty: 1 on 02/19/2024 by Yosi Luna MD at [facility] Right: Hip [employer] 10/19/2033 1217-25-500 / / [id number] [employer] Actis Collar Hip 3 High Offset Stem Femoral [id number] - [id number] Implanted:Qty: 1 on 02/19/2024 by Yosi Luna MD at [facility] Right: Hip [employer] 08/19/2033 [id number] / / [id number] [employer] Articul/Markus 36mm Cementless Hip +5mm 12/14 [place] Femoral Latex Free [id number] - [id number] Implanted:Qty: 1 on 02/19/2024 by Yosi Luna MD at [facility] Right: Hip [employer] 10/19/2028 [id number] / / [id number] Procedures Procedure Name Priority Date/Time Associated Diagnosis Comments COLONOSCOPY 05/13/2024 7:16 AM CASHIER SELF SERVICE GASOLINE DIAGNOSTIC MAMMOGRAM BILATERAL W LEYLA Routine 06/03/2015 10:35 AM CASHIER SELF SERVICE GASOLINE DEXA AXIAL SKELETON BONE DENSITY 1 OR MORE SITES Routine 06/03/2015 10:27 AM CASHIER SELF SERVICE GASOLINE from Last 3 Months or Most Recently Relevant to Health Maintenance Results * Colonoscopy (05/13/2024 7:16 AM CASHIER SELF SERVICE GASOLINE) Anatomical Region Laterality Modality Other Narrative Procedure Note Sven Arana DO - 05/13/2024 7:16 AM CST [facility] Patient Name: Kellee Cerna Procedure Date: 05/13/2024 7:16 AM Date of : 1950 Admit Type: Outpatient Age: 74 Gender: Female Attending MD: Sven Arana D.O. Room: [facility] ENDOSCOPY ROOM 3 Note Status: Finalized Patient [...] and retrieved. Clips(MR conditional) were placed. Clip oracle database architect: [employer]. - Diverticulosis in the left colon. Recommendation: [...] under direct vision. The Pediatric Colonoscope PCF-[id number] was introducedthrough the anus and advanced to [...] clips were successfully placed (MR conditional). Clip oracle database architect: [employer]. Therewas no bleeding at the end of [...] 7:16 AM Procedure Code(s): --- Professional --- 35482, Colonoscopy, flexible; with removal of tumor(s), polyp(s), or other lesion(s) by snare technique --- Technical --- 50325, Colonoscopy, flexible; with removal of tumor(s), polyp(s), [...] perforation orabscess without bleeding CPT copyright 2020 [employer]. All rights reserved. The codes documented in this report are preliminary and upon fumigator and sterilizer reviewmay be revised to meet current compliance requirements. Recognized by the [employer] for promoting quality in endoscopy us Sven PrabhakarSahil Aldridgedarrin DO ENDOSCOPY PROCEDURES Final Res ult * DIAGNOSTIC MAMMOGRAM BILATERAL W LEYLA (06/03/2015 10:35 AM CASHIER SELF SERVICE GASOLINE) Anatomical Region Laterality Modality Breast Bilateral Mammography 06/03/2015 10:3 5 AM CASHIER SELF SERVICE GASOLINE Narrative 06/03/2015 3:02 PM CASHIER SELF SERVICE GASOLINE MAMMOGRAM PERFORMED BY; DIEUDONNE SCREENING MAMM W LEYLA BI Acc#: [id number] Screening Mamm Bi Acc#: [id number] DATE OF EXAM: Jun 03 2015 `ADDENDUM PLEASE SEE BELOW CLINICAL HISTORY: Screening mammogram. History of breast reduction. RESULT: A screening mammogram with tomosynthesis was performed. The patient reports prior outside studies at [facility]; however, no prior studies are presently [...] ADDITIONAL IMAGING EVALUATION. `ADDENDUM Outside mammograms from [facility] performed 09/24/11 and 04/17/10 are now available. [...] SUBRAMANIAN Requesting Attending Fax: -- Attending ID: [id number] Requesting ID: [id number] Report To 1 ID: [id number] Report To 1 Name: KATHLEEN SUBRAMANIAN Report To 1 FAX: -- NextGen Order #: Procedure Note Provider, MD Seymour - 08/10/2016 MAMMOGRAM PERFORMED BY; SCREENING MAMM W LEYLA BI Acc#: [id number] Screening Mamm Bi Acc#: [id number] DATE OF EXAM: Jun 03 2015 `ADDENDUM PLEASE SEEBELOW CLINICAL HISTORY: Screening mammogram. History of breast reduction. RESULT: A screening mammogram with tomosynthesis was performed. The patientreports prior outside studies at [facility]; however, no prior studiesare presently available [...] Digitaltechnology was employed plus computer-aided detection software ([employer]) wasutilized in interpretation of these images. This facility utilizes [employer] system to notify patients of yearly mammograms. IMPRESSION: FOCAL ASYMMETRY DEEP IN THE LEFT CENTRAL BREAST. CORRELATION WITH OUTSIDEMAMMOGRAMS ARE RECOMMENDED. BI-RADS CATEGORY 0 - NEED ADDITIONAL IMAGINGEVALUATION. `[facility] are now available. [...] SUBRAMANIAN Requesting Attending Fax: -- Attending ID: [id number] Requesting ID: [id number] Report To 1 ID: [id number] Report To 1 Name: KATHLEEN SUBRAMANIAN Report To 1 FAX: -- NextGen Order #: us Historical Provider MD GIBBS MAMMO PROCEDURES [place] l Result * Dexa Axial Skeleton Bone Density 1 or 2 Site (06/03/2015 10:27 AM CASHIER SELF SERVICE GASOLINE) Anatomical Region Laterality Modality Body N/A Radiographic Elda ging 06/03/2015 10:2 7 AM CASHIER SELF SERVICE GASOLINE Narrative 06/03/2015 11:37 AM CASHIER SELF SERVICE GASOLINE DEXA Bone Density Axial Acc#: [id number] DATE OF EXAM: Jun 03 2015 CLINICAL [...] SUBRAMANIAN Requesting Attending Fax: -- Attending ID: [id number] Requesting ID: [id number] Report To 1 ID: [id number] Report To 1 Name: KATHLEEN SUBRAMANIAN Report To 1 FAX: -- NextGen Order #: Procedure Note Provider, MD Seymour - 08/10/2016 DEXA Bone Density Axial Acc#: [id number] DATE OF EXAM: Jun 03 2015 CLINICAL [...] M Requesting Attending Fax: -- Attending ID: [id number] Requesting ID: [id number] Report To 1 ID: [id number] Report To 1 Name: KATHLEEN SUBRAMANIAN Report To 1 FAX: -- NextGen Order #: Historical Provider MD GIBBS DXA PROCEDURES Final Result from Last 3 Months or Most Recently Relevant to Health Maintenance Insurance [facility]ICARE [facility] MEDICARE BLUE CROSS MEDICARE SUPPLEMENT Advance Directives For more information, please contact: [phone] * Full Code (Latest Code Status on File) Date Activated Date Inactivated Comments 05/13/2024 7:10 AM 05/13/2024 1:52 PM * Full Code Date Activated Date Inactivated Comments 05/13/2024 7:09 AM 05/13/2024 7:10 AM * Full Code Date Activated Date Inactivated Comments 02/19/2024 4:13 PM 02/20/2024 3:44 PM Care Teams Booking Agent Relationship Specialty Start Date End Date Kathleen Subramanian MD PCP - General 10/02/16 Yosi Luna MD [address] [place] [address] DR CORRALES [address] [place] [address] Surgeon Orthopedic Surgery 02/20/24
--- OUTSIDE RECORDS SUMMARY | 2024-09-17 06:03 | XMS_ITS | Continuity of Care Document ---
Author Organization [facility] Address [address] [place] [address] [address] [place] [address] Phone Care Team Providers Care Curber Name Role Phone Duane BENAVIDEZ, Deni Unavailable Unavaila ble Procedures Procedure Date POSTOP FOLLOW-UP VISIT CATARACT SURG W/IOL, 1 STAGE OFFICE/OUTPATIENT VISIT, [facility] OPHTHALMIC BIOMETRY OPHTHALMIC BIOMETRY Advance Directives Directive Yes / No Effective Date File Name No Information Encounters Encounter Description Practice Location Reason(s) For Visit Diagnoses Date Provider Providers Copied on Encounter [facility], [address] [place] [address], [id number], tel:[phone] [facility] No Information 9 Joaoishtanna Deni. [address], [place], [place], [id number], [place]. tel:[phone] Referring Provider: Family Friends [facility], [address] [place] [address], [id number], tel:[phone] [facility] No Information 9 Joaoishnasyane Deni. [address], [place], [place], [id number], [place]. tel:[phone] Referring Provider: Deni adamson, [address], [place], [address] . tel:[phone] OFFICE/OUTPAT IENT VISIT, [facility], [address], [place], [place], [id number], [place] tel:[phone] [facility] No Information 9 Duane Lozanohil. [address] [facility] [address] , [address], [place], [place], [id number], [place]. tel:[phone] Referring Provider: Hieu Darnell, [address], [place], [address]. tel:[phone] Family History Family Member Type Diagnosis Age At Onset No Information Payers Payer name Insurance type Covered republican ID Authoriza tion(s) No Information Social History [...]
--- OUTSIDE RECORDS SUMMARY | 2024-09-17 06:03 | XMS_ITS | Encounter Summary ---
Author Organization [facility] Address [address] [facility] [place] [address] Care Team Providers Care Lisw Name Role Phone Hugh Sierra MD Unavailable [phone] Adam Wiggins MD Primary Care Provider [phone] Encounter Details Date Type Department Care Team (Late st Contact Info) Description 03/26/2022 Lab Requisition [facility] Care Pathology Lab [address] [place] [address] Edison Bustamante MD [address] [place] [address] Anemia, unspecified Social History Tobacco Use Types [...] CYTOMETRY BONE MARROW Routine 03/26/2022 8:17 AM SANDWICH BOARD CARRIER Anemia, unspecified documented in this encounter Results * FLOW CYTOMETRY BONE MARROW (03/26/2022 8:17 AM SANDWICH BOARD CARRIER) Case Report Flow Cytometry Case: [id number] Authorizing Provider: Edison Bustamante MD Collected: 03/26/2022 08:17 AM Ordering Location: [facility] Pathology Lab Received: 03/26/2022 01:15 PM Pathologist: Tony Talley MD Specimen: Bone Marrow 03/26/2022 3:50 PM [facility] Final Diagnosis Bone marrow, flow cytometry: - No clonal B-cell or increased blast population detected 03/26/2022 3:50 PM [facility] at [address] [employer] Flow Cytometry Interpretation The bone marrow specimen [...] flow cytometry specimen is reviewed for quality cloth tester purposes. 03/26/2022 3:50 PM [facility] Flow Cytometry Results Differential Result Comment Flow Cell Count /uL 36,800 Total Viability % 93.0 Lymphocytes % 35 Dim CD45 Region % 8 Monocytes % 15 Granulocytes % 42 03/26/2022 3:50 PM [facility] Reason for test Anemia, unspecified 285.9 03/26/2022 3:50 PM [facility] Client Specimen ID # [id number] 03/26/2022 3:50 PM [facility] Number of markers 10 were performed. A-2 Flow CD10 A-3 Flow CD13 A-5 Flow CD20 A-1 Flow CD5 A-4 Flow CD19 A-6 Flow CD33 A-7 Flow CD34 A-8 Flow CD45 A-9 Stonewall+CD19+ A-10 Lambda+CD19+ 03/26/2022 3:50 PM [facility] Disclaimer Test performed at [facility], [address] [place] [address], [facility]. *The established laboratory minimum viability is [...] high complexity clinical testing. 03/26/2022 3:50 PM [facility] Embedded Images 3:50 PM [facility] Pathology/Cytolo gy BONE MARROW SPECIMEN / Unknown 03/26/2022 8:17 AM SANDWICH BOARD CARRIER 03/26/2022 1:15 PM SANDWICH BOARD CARRIER Edison Bustamante MD LAB - PATHOLOGY/CYTOLOGY ORD ERABLES Final Result [facility] [address] [place] [address]. [address] [phone] documented in this encounter Visit Diagnoses Diagnosis Anemia, unspecified documented in this encounter Care Teams Lisw Relationship Specialty [place] [address] [place] [address] PCP - General Internal Medicine 03/06/13 [place] [address] [address] [place] [address] Orthopedic Surgery 03/06/13 documented as of this encounter
--- OUTSIDE RECORDS SUMMARY | 2024-09-17 06:03 | XMS_ITS | Encounter Summary ---
Author Organization [employer] [facility] Address [address] [place] [address] Care Team Providers Care Rn Wellness Name Role Phone Adam Wiggins MD Primary Care Provider Reason for Visit * Reason Onset Date Comments Medication Refill 05/01/2011 Encounter Details Date Type Department Care Team (Late st Contact Info) Description 05/01/2011 Refill Central Business Office [address] [place] [address] Mychart, Generic Provider Social History Tobacco Use Types Packs/Day Years Used Date Smoking Tobacco: Never Smokeless Tobacco: Never Alcohol Use Standard Drinks/Week Comments Yes 0 (1 standard drink = 0.6 oz pur e alcohol) Comments No Sex and Gender Information Value Date Recorded Sex Assigned at Not on file Legal Sex Female 5:28 AM ELECTRICAL AND INSTRUMENT ENGINEER Gender Identity Not on file Sexual Orientation Straight 02/05/2024 6: 22 PM CDT documented as of this encounter Miscellaneous Notes * Telephone Encounter - Lnyn Laureano - 05/01/2011 12:18 PM CST 03/28/11 last ov TRICAL AND INSTRUMENT ENGINEER * Telephone Encounter - Lynn Laureano - 05/01/2011 12:17 PM CSTFrom: KELLEE CERNA Sent: e May 01, 2011 10:43 AM Subject: Medication Renewal Request Kellee Cerna would like a refill of the following medications: Preferred pharmacy: [facility] Comment: Dr. Wiggins, when I saw you we agreed I would go to Cymbalta 30 mg. and you gave me samples. However, the pharmacy still has a dose of 60 mg. Could you please order me the 30 mg. tablets? Other - see comments for explanation TRICAL AND INSTRUMENT ENGINEER documented in this encounter Plan of Treatment Upcoming Encounters Date Type Department Care Team (Late st Contact Info) Description 11/13/2024 11:20 AM CDT Office Visit [facility] Primary Care [address] [place] [address] Adam Wiggins MD [address] [place] [address] [address] [place] [address] documented as of this encounter Visit Diagnoses Not on filedocumented in this encounter Care Teams Rn Wellness Relationship Specialty Start Date End Date Adam Wiggins MD PCP - General 07/21/07 documented as of this encounter
--- OUTSIDE RECORDS SUMMARY | 2024-09-17 06:03 | XMS_ITS | Clinical Summary ---
Author Organization [facility] Building B Address [address] [place] [address] Care Team Providers Care Straightener Name Role Phone Kathleen Subramanian MD Primary Care Provider + Yosi Luna MD Unavailable [phone] Allergies Active Allergy Reactions Criticality Noted Date [...] Description 07/31/2024 11:45 AM CDT Office Visit [facility] Orthopedics and Sports Medicine [address] [place] [phone] Ailyn Marshall NP Trochanteric bursitis of right hip (Primary Dx); It band syndrome, right from Last 3 Months Surgical History Surgery [...] on file Legal Sex Female 7:59 PM FELT PAD CUTTER Gender Identity Not on file Sexual Orientation Not on file Obstetrics History Last Filed Vital Signs Vital Sign Reading Time Taken Comments Blood Pressure 137/66 07/31/2024 11:39 AM CDT Pulse 93 07/31/2024 11:39 AM CDT Temperature 36.7 C (98 F) 05/13/2024 9:42 AM FELT PAD CUTTER Respiratory Rate 18 05/13/2024 9:42 AM FELT PAD CUTTER Oxygen Saturation 98% 05/13/2024 9:42 AM FELT PAD CUTTER Inhaled Oxygen Concentration - - Weight 82.6 [...] Screening Discontinued Medical Devices Implanted Type Area Trench Pipe Layer Device Identifier Shelf Expiration Date Model / Serial / Lot Depuy [employer] Liner Acetabular Hip Standard Emphasys Aox 08p06mb Polyethylene [id number] - [id number] Implanted:Qty: 1 on 02/19/2024 by Yosi Luna MD at [facility] Right: Hip [employer] [id number] 12/20/2028 [id number] / / [id number] Dep[employer] Shell Acetabular Hip Porous 3 Hole Coated Emphasys 50mm Titanium [id number] - [id number] Implanted:Qty: 1 on 02/19/2024 by Yosi Luna MD at [facility] Right: Hip [employer] 12/20/2033 [id number] / / [id number] Depuy [employer] Inc [place] 6.5mm 35mm Acetabular Cancellous Screw Bone Sterile 1217-35-500 - [id number] Implanted:Qty: 1 on 02/19/2024 by Yosi Luna MD at [facility] Right: Hip [employer] 10/19/2033 1217-35-500 / / [id number] Dep[employer] [place] 6.5mm 25mm Acetabular Cancellous Screw Bone Sterile 121-500 - [id number] Implanted:Qty: 1 on 02/19/2024 by Yosi Luna MD at [facility] Right: Hip [employer] 10/19/2033 121--500 / / [id number] Dep[employer] Inc Actis Collar Hip 3 High Offset Stem Femoral [id number] - [id number] Implanted:Qty: 1 on 02/19/2024 by Yosi Luna MD at [facility] Right: Hip [employer] 08/19/2033 [id number] / / [id number] Depuy [employer] Articul/Markus 36mm Cementless Hip +5mm 12/14 [place] Femoral Latex Free [id number] - [id number] Implanted:Qty: 1 on 02/19/2024 by Yosi Luna MD at [facility] Right: Hip [employer] 10/19/2028 [id number] / / [id number] Procedures Procedure Name Priority Date/Time Associated Diagnosis Comments COLONOSCOPY 05/13/2024 7:16 AM FELT PAD CUTTER DIAGNOSTIC MAMMOGRAM BILATERAL W LEYLA Routine 06/03/2015 10:35 AM FELT PAD CUTTER DEXA AXIAL SKELETON BONE DENSITY 1 OR MORE SITES Routine 06/03/2015 10:27 AM FELT PAD CUTTER from Last 3 Months or Most Recently Relevant to Health Maintenance Results * Colonoscopy (05/13/2024 7:16 AM FELT PAD CUTTER) Anatomical Region Laterality Modality Other Narrative Procedure Note Sven Arana, - 05/13/2024 7:16 AM CST Digestive [facility] Patient Name: Kellee Cerna Procedure Date: 05/13/2024 7:16 AM Date of : 1950 Admit Type: Outpatient Age: 74 Gender: Female Attending MD: Sven Arana D.O. Room: [facility] ENDOSCOPY ROOM 3 Note Status: Finalized Patient [...] and retrieved. Clips(MR conditional) were placed. Clip fiction and nonfiction author: [employer]. - Diverticulosis in the left colon. Recommendation: [...] under direct vision. The Pediatric Colonoscope PCF-H190L [id number] was introducedthrough the anus and advanced to [...] clips were successfully placed (MR conditional). Clip fiction and nonfiction author: [employer]. Therewas no bleeding at the end of [...] 7:16 AM Procedure Code(s): --- Professional --- 40739, Colonoscopy, flexible; with removal of tumor(s), polyp(s), or other lesion(s) by snare technique --- Technical --- 07622, Colonoscopy, flexible; with removal of tumor(s), polyp(s), [...] perforation orabscess without bleeding CPT copyright 2020 [employer]. All rights reserved. The codes documented in this report are preliminary and upon loop puller reviewmay be revised to meet current compliance requirements. Recognized by the [place] [employer] for promoting quality in endoscopy Sven Arana DO ENDOSCOPY PROCEDURES Final Res ult * DIAGNOSTIC MAMMOGRAM BILATERAL W LEYLA (06/03/2015 10:35 AM FELT PAD CUTTER) Anatomical Region Laterality Modality Breast Bilateral Mammography 06/03/2015 10:3 5 AM FELT PAD CUTTER Narrative 06/03/2015 3:02 PM FELT PAD CUTTER MAMMOGRAM PERFORMED BY; DIEUDONNE SCREENING MAMM W LEYLA BI Acc#: [id number] Screening Mamm Bi Acc#: [id number] DATE OF EXAM: Jun 03 2015 `ADDENDUM PLEASE SEE BELOW CLINICAL HISTORY: Screening mammogram. History of breast reduction. RESULT: A screening mammogram with tomosynthesis was performed. The patient reports prior outside studies at [facility]; however, no prior studies are presently available [...] ADDITIONAL IMAGING EVALUATION. `ADDENDUM Outside mammograms from [facility] performed 09/24/11 and 04/17/10 are now available. [...] SUBRAMANIAN Requesting Attending Fax: -- Attending ID: [id number] Requesting ID: [id number] Report To 1 ID: [id number] Report To 1 Name: KATHLEEN SUBRAMANIAN Report To 1 FAX: -- NextGen Order #: Procedure Note Provider, MD Seymour - 08/10/2016 MAMMOGRAM PERFORMED BY; SS SCREENING MAMM W LEYLA BI Acc#: [id number] Screening Mamm Bi Acc#: [id number] DATE OF EXAM: Jun 03 2015 `ADDENDUM PLEASE SEEBELOW CLINICAL HISTORY: Screening mammogram. History of breast reduction. RESULT: A screening mammogram with tomosynthesis was performed. The patientreports prior outside studies at [facility]; however, no prior studiesare presently available for [...] Digitaltechnology was employed plus computer-aided detection software (CoachSeek) wasutilized in interpretation of these images. This facility utilizes blogfoster system to notify patients of yearly mammograms. IMPRESSION: FOCAL ASYMMETRY DEEP IN THE LEFT CENTRAL BREAST. CORRELATION WITH OUTSIDEMAMMOGRAMS ARE RECOMMENDED. BI-RADS CATEGORY 0 - NEED ADDITIONAL IMAGINGEVALUATION. `[facility] are now available. Since [...] SUBRAMANIAN Requesting Attending Fax: -- Attending ID: [id number] Requesting ID: [id number] Report To 1 ID: [id number] Report To 1 Name: KATHLEEN SUBRAMANIAN Report To 1 FAX: -- NextGen Order #: us Historical Provider MD GIBBS MAMMO PROCEDURES [place] l Result * Dexa Axial Skeleton Bone Density 1 or 2 Site (06/03/2015 10:27 AM FELT PAD CUTTER) Anatomical Region Laterality Modality Body N/A Radiographic Elda ging 06/03/2015 10:2 7 AM FELT PAD CUTTER Narrative 06/03/2015 11:37 AM FELT PAD CUTTER DEXA Bone Density Axial Acc#: [id number] DATE OF EXAM: Jun 03 2015 CLINICAL [...] SUBRAMANIAN Requesting Attending Fax: -- Attending ID: [id number] Requesting ID: [id number] Report To 1 ID: [id number] Report To 1 Name: KATHLEEN SUBRAMANIAN Report To 1 FAX: -- NextGen Order #: Procedure Note Provider, MD Seymour - 08/10/2016 DEXA Bone Density Axial Acc#: [id number] DATE OF EXAM: Jun 03 2015 CLINICAL [...] SUBRAMANIAN Requesting Attending Fax: -- Attending ID: [id number] Requesting ID: [id number] Report To 1 ID: [id number] Report To 1 Name: KATHLEEN SUBRAMANIAN Report To 1 FAX: -- NextGen Order #: [facility] Provider MD GIBBS DXA PROCEDURES Final Result from Last 3 Months or Most Recently Relevant to Health Maintenance Insurance MEDICARE [facility] MEDICARE [facility] MEDICARE BLUE CROSS MEDICARE SUPPLEMENT Advance Directives For more information, please contact: [phone] * Full Code (Latest Code Status on File) Date Activated Date Inactivated Comments 05/13/2024 7:10 AM 05/13/2024 1:52 PM * Full Code Date Activated Date Inactivated Comments 05/13/2024 7:09 AM 05/13/2024 7:10 AM * Full Code Date Activated Date Inactivated Comments 02/19/2024 4:13 PM 02/20/2024 3:44 PM Care Teams Straightener Relationship Specialty Start Date End Date Kathleen Subramanian MD PCP - General 10/02/16 Yosi Luna MD [address] [place] [address] DR CORRALES [address] [place] [id number] Surgeon Orthopedic Surgery 02/20/24
--- OUTSIDE RECORDS SUMMARY | 2024-09-17 06:03 | XMS_ITS | Clinical Summary ---
Author Organization [facility] Address [address] [place] [address] Care Team Providers Care Director Of Math Name Role Phone Hugh Le MD Unavailable [phone] Adam Wiggins MD Primary Care Provider Source Comments [facility],non-owned Affiliates and Associated Physician Practices is amultiple site organization consisting of ambulatory clinics and hospital sitesin [place], [place], [place] and [place]. This disclosure is being madepursuant to the Care Everywhere program and may not contain all information available regarding this patient. Last updated 18.[facility] Allergies Active Allergy Reactions Criticality Noted Date [...] by mouth as needed. Active Probiotic Product (Snapsheet PO) Take 1 Tab by mouth at [...] Comments Blood Pressure 102/66 03/03/2014 8:24 AM ASSET PROTECTION PROFESSIONAL Pulse 101 03/03/2014 8:24 AM ASSET PROTECTION PROFESSIONAL Temperature 37.1 C (98.8 F) 03/03/2014 8:24 AM ASSET PROTECTION PROFESSIONAL Respiratory Rate 18 03/03/2014 8:24 AM ASSET PROTECTION PROFESSIONAL Oxygen Saturation 93% 03/03/2014 8:24 AM ASSET PROTECTION PROFESSIONAL Inhaled Oxygen Concentration - - Weight 80.9 kg (178 lb 6.4 oz) 03/01/2014 7:54 A M ASSET PROTECTION PROFESSIONAL Height 152.4 cm (5') 03/01/2014 7:54 AM ASSET PROTECTION PROFESSIONAL Body Mass Index 34.84 03/01/2014 7:54 AM ASSET PROTECTION PROFESSIONAL Plan of Treatment Health Maintenance Due Date [...] this topic Medical Devices Implanted Type Area Rod Puller Device Identifier Shelf Expiration Date Model / Serial / Lot Beny Bone Stonefort Hv Implanted:Qty: 1 on 08/31/2013 by Hugh Le MD at [facility] Left: Knee [employer] Inc 03/21/2015 [id number] / / [id number] Stem Fem Maxim I-Beam Prim 40mm Implanted:Qty: 1 on 08/31/2013 by Hugh Le MD at [facility] Left: Knee [employer] 04/21/2023 [id number] / / [id number] Titanium Femoral Implant 62.5mm Left Implanted:Qty: 1 on 08/31/2013 by Hugh Le MD at [facility] Left: Knee 01/19/2023 [id number] / / [id number] Ty Tibial Prim Intlok 71mm Implanted:Qty: 1 on 08/31/2013 by Hugh Le MD at [facility] Left: Knee [employer] Inc 07/21/2023 [id number] / / [id number] Butn Pat Arcom Wire Polyeth Sm 31 X 8mm Implanted:Qty: 1 on 08/31/2013 by Hugh Le MD at [facility] Left: Knee [employer] Inc 06/19/[id number] / / [id number] Brdg Tib Pratima Stbl 12mm X 71mm Implanted:Qty: 1 on 08/31/2013 by Hugh Le MD at [facility] Left: Knee [employer] Inc 08/19/2018 [id number] / / [id number] Stem Fem Maxim I-Beam Prim 40mm Implanted:Qty: 1 on 03/01/2014 by Hugh Le MD at [facility] Right: Knee [employer] Inc 08/20/2023 [id number] / / [id number] Ty Tibial Prim Intlok 67mm Implanted:Qty: 1 on 03/01/2014 by Hugh Le MD at [facility] Right: Knee [employer] Inc 07/21/2023 [id number] / / [id number] Vangrd Ant Stblzd Brg 10mm X 67mm Implanted:Qty: 1 on 03/01/2014 by Hugh Le MD at [facility] Right: Knee [employer] 10/19/2014 [id number] / / [id number] Beny Bone [place] Hv Implanted:Qty: 1 on 03/01/2014 by Hugh Le MD at [facility] Right: Knee [employer] 11/20/2015 [id number] / / [id number] Butn Pat Arcom Wire Polyeth Sm 31 X 8mm Implanted:Qty: 1 on 03/01/2014 by Hugh Le MD at [facility] Right: Knee [employer] 02/19/[id number] / / [id number] Titanium Femoral Implant 60mm Right Implanted:Qty: 1 on 03/01/2014 by Huhg Le MD at [facility] Right: Knee [employer] Inc 07/21/2023 [id number] / / [id number] Insurance MEDICARE [facility] MEDICARE [facility] Advance Directives Documents on File 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
--- OUTSIDE RECORDS SUMMARY | 2024-09-17 06:03 | XMS_ITS | Encounter Summary ---
Author Organization [facility] Address [address] [place] [address] Care Team Providers Care Payroll Accounting Manager Name Role Phone Hugh Sierra MD Unavailable [phone] Adam Wiggins MD Primary Care Provider [phone] Encounter Details Date Type Department Care Team (Late st Contact Info) Description 03/27/2022 Lab Requisition [facility] [address] [place] [address] Edison Bustamante MD [address] [place] [id number] Illness, unspecified Social History Tobacco Use Types [...] MARROW BIOPSY (STL) Routine 03/26/2022 8:11 AM RN REFERRAL Illness, unspecified documented in this encounter Results * BONE MARROW BIOPSY (STL) (03/26/2022 8:11 AM RN REFERRAL) Case Report Bone Marrow Patholog y Report Case: [id number] Authorizing Provider: Edison Bustamante MD Collected: 03/26/2022 08:11 AM Ordering Location: [facility] Lab Received: 03/27/2022 02:30 PM Pathologist: Tony Talley MD Specimens: A) - Bone Marrow Core B) - Bone Marrow Clot 03/29/2022 10:[address] [facility] Final Diagnosis Bone marrow, aspirate, clot section, and core biopsy: - Normocellular marrow with maturing trilineage hematopoiesis. - No evidence of lymphoma, overt plasma cell neoplasm, or high-grade myeloid neoplasm. - See description. Peripheral blood smear: - Normocytic anemia. - See description. 03/29/2022 10:[address] [facility] LAB at 1027 RN REFERRAL AP Comment Immunohistochemistry and in situ hybridization [...] seen in this study. 03/29/2022 10:[address] [facility] Peripheral Smear Description RBC: normocytic anemia. WBC: normal in number and morphology. Platelets: normal in number and morphology. 03/29/2022 10:[address] [facility] Bone Marrow Aspirate Differential [...] stain): no ring sideroblasts. 03/29/2022 10:[address] [facility] Bone Marrow Core Biopsy [...] morphology: peripheral blood only. 03/29/2022 10:[address] [facility] Flow Cytometry Summary Bone marrow, flow cytometry ([id number]): - No clonal B-cell or increased blast population detected 03/29/2022 10:[address] [facility] Clinical History Rule out plasma cell neoplasm. 03/29/2022 10:[address] [facility] Materials Received Received are 11 slides and two blocks (A1, B1) labeled [id number] along with a copy of the outside pathology report. The materials originate from [facility], [address] [place] [address]. All original materials are returned to the referring institution, along with a copy of our final report. 03/29/2022 10:[address] [facility] Disclaimer The performance characteristics of all immunohistochemical and indirect immunofluorescence stains (if any) cited in this report were determined by the Histopathology Laboratory of [facility]. Some of these tests were developed [...] the attending (teaching) pathologist. 03/29/2022 10:[address] [facility] Embedded Images 03/29/2022 10:[address] [facility] Pathology/Cytology BONE MARROW CLOT SPECIMEN / Unknown 03/26/2022 8:11 AM RN REFERRAL 03/27/2022 2:30 PM RN REFERRAL Miscellaneous samples (specimen) BONE MARROW CLOT SPECIMEN / Unknown 03/26/2022 8:11 AM RN REFERRAL 03/27/2022 2:30 PM RN REFERRAL Edison Bustamante MD LAB - PATHOLOGY/CYTOLOGY ORD ERABLES Final Result Performing Organization Address City/State/[facility] Co de Phone Number [facility] [address] [phone] documented in this encounter Visit Diagnoses Diagnosis Illness, unspecified documented in this encounter Care Teams Payroll Accounting Manager Relationship Specialty [place] [id number] [address] [place] [id number] PCP - General Internal Medicine 03/06/13 [place] [id number] [address] [place] [address] Orthopedic Surgery 03/06/13 documented as of this encounter
--- OUTSIDE RECORDS SUMMARY | 2024-09-17 06:03 | XMS_ITS | Clinical Summary ---
Author Organization [facility] Address [address], [address] [place] [address] Phone Care Team Providers Care Scalper Operator Name Role Phone Adam Wiggins MD Primary Care Provider [phone] David Henriquez MD Unavailable Stas Malin MD Unavailable [phone] Allergies Active Allergy Reactions Criticality Noted Date [...] Date Type Department Care Team Description 09/10/2024 10:00 AM CDT Physical Therapy [facility] [address], [address] [place] [address] Cristal Hunt PAC Fisher, Debra C, PT Discharge Disposition: Discharged to home or Selfcare 09/08/2024 9:15 AM CDT Physical Therapy [facility] [address], [address] [place] [address] Cristal Hunt PAC Fisher, Debra C, PT Discharge Disposition: Discharged to home or Selfcare 09/08/2024 Travel 09/03/2024 Telephone [facility] at [facility] [address], [address] [place] [phone] Lin Fuller, PT cancelled due to time conflict 09/01/2024 2:15 PM CDT Physical Therapy [facility] at [facility] [address], [address] [place] [phone] Cristal Hunt PAC Fisher, Debra C, PT Discharge Disposition: Discharged to home or Selfcare 09/01/2024 Travel 08/28/2024 10:15 AM CDT Physical Therapy [facility] [address], [address] [place] [address] Cristal Hunt PAC Fisher, Debra C, PT Abnormal gait (Primary Dx); Trochanteric bursitis of right hip; Weakness Discharge Disposition: Discharged to home or Selfcare 08/28/2024 Travel 08/24/2024 10:00 AM CDT Physical Therapy [facility] [address], [address] [place] [phone] Cristal Hunt PAC Fisher, Debra C, PT Discharge Disposition: Discharged to home or Selfcare 08/24/2024 Travel 08/20/2024 1:15 PM CDT Physical Therapy [facility] at [facility] [address], [address] [place] [address] Cristal Hunt PAC Fisher, Debra C, PT Discharge Disposition: Discharged to home or Selfcare 08/19/2024 Plan of Care Documentation [facility] at [facility] [address], [address] [place] [address] 08/18/2024 1:30 PM CDT Physical Therapy [facility] at [facility] [address], [address] [place] [address] Cristal Hunt PAC Fisher, Debra C, PT Trochanteric bursitis of right hip (Primary Dx); Weakness; Abnormal gait Discharge Disposition: Discharged to home or Selfcare 08/18/2024 Travel 08/13/2024 Telephone [facility] at [facility] [address] [facility], [address] [address] [place] [address] Amberly Parish, PT Appointment (Called to cancel PT today) 08/06/2024 10:45 AM CDT Physical Therapy [facility] at [facility] [address], [address] [place] [address] Cristal Hunt PAC Fisher, Debra C, PT Discharge Disposition: Discharged to home or Selfcare 08/06/2024 Travel 07/31/2024 1:15 PM CDT Physical Therapy [facility] at [facility] [address], [address] [place] [address] Cristal Hunt PAC Fisher, Debra C, PT Discharge Disposition: Discharged to home or Selfcare 07/29/2024 10:45 AM CDT Physical Therapy [facility] [address] [facility], [address] [place] [address] Cristal Hunt PAC Fisher, Debra C, PT Discharge Disposition: Discharged to home or Selfcare 07/29/2024 Travel 07/23/2024 10:45 AM CDT Physical Therapy [facility] [address], [address] [place] [address] Cristal Hunt PAC Fisher, Debra C, PT Discharge Disposition: Discharged to home or Selfcare 07/20/2024 10:45 AM CDT Physical Therapy [facility] [address] [facility], [address] [place] [address] Cristal Hunt PAC Fisher, Debra C, PT Discharge Disposition: Discharged to home or Selfcare 07/20/2024 Travel 07/15/2024 9:15 AM CDT Physical Therapy [facility] at [address], [address] [phone] Cristal Hunt PAC Bogowith, Kelly A, PT Trochanteric bursitis of right hip (Primary Dx); 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 Discharge Disposition: Discharged to home or Selfcare 07/13/2024 Telephone [facility] [address], [address] [place] [address] Amberly Parish, PT Appointment (Called to cancel PT today) 07/12/2024 11:29 AM CDT - 07/12/2024 1:34 PM CDT Emergency [facility] Emergency [address] [place] [address] Siobhan Jimenez MD Gastroenteritis Discharge Disposition: Discharged to home or Selfcare 07/12/2024 10:40 AM CDT Urgent Care [facility] [address] [place] [address] Federico Lu APRN, ORAL Lower abdominal pain (Primary Dx) Discharge Disposition: Discharged to home or Selfcare 07/12/2024 Travel 07/08/2024 2:45 PM CDT Physical Therapy [facility] [address], [address] [place] [phone] Cristal Hunt, PAC Jem, Amberly A, PT Trochanteric bursitis of right hip (Primary Dx); 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 Discharge Disposition: Discharged to home or Selfcare 07/08/2024 Travel 07/03/2024 2:30 PM CDT Physical Therapy [facility] at [facility] [address], [address] [place] [phone] Cristal Hunt, KAREN Parish, Amberly A, PT Discharge Disposition: Discharged to home or Selfcare 06/30/2024 9:15 AM CDT Physical Therapy [facility] [address], [address] [place] [phone] Cristal Hunt, PAC Paulaith, Amberly A, PT Trochanteric bursitis of right hip; 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 Discharge Disposition: Discharged to home or Selfcare 06/30/2024 Plan of Care Documentation [facility] [address], [address] [place] [address] 06/30/2024 Travel from Last 3 Months Immunizations Immunization Administration [...] Description 09/21/2024 2:00 PM CDT Physical Therapy [facility] [address] [place] [address] Cristal Hunt, [address] [place] [address] Lin Fuller, PT [place] Discharge Disposition: Discharged to home or Selfcare 09/23/2024 9:00 AM CDT Physical Therapy [facility] [address], [address] [place] [address] Cristal Hunt, PAC [address] [place] [address] Lin Fuller, PT [place] 10/06/2024 2:15 PM CDT Physical Therapy [facility] [address], [address] [place] [address] Cristal Hunt, PAC [address] [place] [address] Lin Fuller, PT [place] Health Maintenance Due [...] WITH DIFF STAT 07/12/2024 11:55 AM CDT [facility] SCREENING BILATERAL DIGITAL W CAD W LEYLA Routine 01/09/2023 10:21 AM CDT Visit for screening mammogram [facility] BONE DENSITOMETRY AXIAL SKELETON Routine 02/20/2018 3:21 [...] Jimmy Perez M.D. AG: NINA Report ID: [id number] Reading Location: [id number] Procedure Note Jimmy Perez MD - 07/12/2024 [...] Electronically signed by Jimmy Perez M.D. AG: AG Report ID: [id number] Reading Location: [id number] IMPRESSION: Examination is limited by motion artifact [...] Additional findings as above. Siobhan Jimenez MD [facility] [place] ORDERABLES Final Resul t * URINALYSIS REFLEX IF INDICATED BY ABNORMAL RESULTS (07/12/2024 11:55 AM CDT) SPECIFIC GRAVITY 1.010 1.003 - 1.030 07/12/2024 12:24 PM CDT [facility] URINE PH 6.0 5.0 - 9.0 07/12/2024 12:24 PM CDT [facility] WBC ESTERASE Negative Negative 07/12/2024 12:24 PM CDT [facility] NITRITE Negative Negative 07/12/2024 12:24 PM CDT [facility] PROTEIN, RANDOM URINE Negative Negative 07/12/2024 12:24 PM CDT [facility] URINE GLUCOSE, QUAL Negative Negative 07/12/2024 12:24 PM CDT [facility] URINE KETONES Negative Negative 07/12/2024 12:24 PM CDT [facility] UROBILINOGEN Normal Normal mg/dL 07/12/2024 12:24 PM CDT [facility] URINE BLOOD Negative Negative mariano/ul 07/12/2024 12:24 PM CDT [facility] URINALYSIS COLOR Yellow 07/13/19 12:24 PM CDT [facility] URINALYSIS CLARITY Clear 07/12/2024 12:24 PM CDT [facility] Urine URINE SPECIMEN OBTAINED BY CLEAN CATCH PROCEDURE / Unknown Non-Phlebotomy Collection / Unknown 07/12/2024 11:55 AM CDT 07/12/2024 12:18 PM CDT us Siobhan Jimenez MD URINE ORDERABLES Final Result [facility] [address] [place] [address] * CBC with Auto Differential (07/12/2024 11:55 AM CDT) WBC 9.76 4.00 - 12.00 10(3)/mcL 07/12/2024 12:21 PM CDT [facility] RBC 4.24 3.80 - 5.30 10(6)/mcL 07/12/2024 12:21 PM CDT [facility] HEMOGLOBIN (HGB) 12.4 12.0 - 15.8 g/dL 07/12/2024 12:21 PM CDT [facility] HEMATOCRIT (HCT) 37.7 36.0 - 47.0 % 07/12/2024 12:21 PM CDT [facility] MCV 88.9 82.0 - 96.0 fL 07/12/2024 12:21 PM CDT [facility] MCH 29.2 26.0 - 34.0 pg 07/12/2024 12:21 PM CDT [facility] MCHC 32.9 31.0 - 36.0 g/dL 07/12/2024 12:21 PM CDT [facility] PLATELET COUNT 369 140 - 440 10(3)/[facility] 07/12/2024 12:21 PM CDT [facility] RDW 13.0 11.8 - 15.5 % 07/12/2024 12:21 PM CDT [facility] MPV 11.0 9.7 - 12.4 fL 07/12/2024 12:21 PM CDT [facility] NEUTROPHILS 66.9 47.0 - 73.0 % 07/12/2024 12:21 PM CDT [facility] LYMPHOCYTES 22.4 18.0 - 42.0 % 07/12/2024 12:21 PM CDT [facility] MONOCYTES 7.4 4.0 - 12.0 % 07/12/2024 12:21 PM CDT [facility] EOSINOPHILS 2.7 0.0 - 5.0 % 07/12/2024 12:21 PM CDT [facility] BASOPHILS 0.6 0.0 - 1.0 % 07/12/2024 12:21 PM CDT [facility] ABSOLUTE NEUTROPHILS 6.53 1.60 - 7.70 10(3)/mcL 07/12/2024 12:21 PM CDT [facility] ABSOLUTE LYMPHOCYTES 2.19 1.30 - 3.20 10(3)/mcL 07/12/2024 12:21 PM CDT [facility] ABSOLUTE MONOCYTES 0.72 0.20 - 1.00 10(3)/mcL 07/12/2024 12:21 PM CDT [facility] ABSOLUTE EOSINOPHIL 0.26 0.00 - 0.40 10(3)/mcL 07/12/2024 12:21 PM CDT [facility] ABSOLUTE BASOPHILS 0.06 0.00 - 0.10 10(3)/mcL 07/12/2024 12:21 PM CDT [facility] NRBC PER 100 WBC 0 07/13/19 12:21 PM CDT [facility] Blood Venipuncture / Unknown 07/12/2024 11:55 AM CDT 07/12/2024 12:18 PM CDT us Siobhan Jimenez MD HEMATOLOGY ORDERABLES Final R esult [facility] [address] [place] [address] * (ABNORMAL) Comprehensive Metabolic Panel (Cmp) [id number] (07/12/2024 11:55 AM CDT) SODIUM 134(L) 136 - 145 mmol/L 07/12/2024 12:48 PM CDT [facility] POTASSIUM 4.5 3.5 - 5.1 mmol/L 07/12/2024 12:48 PM CDT [facility] CHLORIDE 103 98 - 107 mmol/L 07/12/2024 12:48 PM CDT [facility] CO2, VENOUS 23 22 - 30 mmol/L 07/12/2024 12:48 PM CDT [facility] ANION GAP 12.5 <18.0 mmol/L 07/12/2024 12:48 PM CDT [facility] GLUCOSE 91 70 - 99 mg/dL 07/12/2024 12:48 PM CDT [facility] BUN 15 10 - 20 mg/dL 07/12/2024 12:48 PM CDT [facility] CREATININE, BLOOD 0.81 0.60 - 1.00 mg/dL 07/12/2024 12:48 PM CDT [facility] BUN/CREATININE RATIO 19 12 - 20 ratio 07/12/2024 12:48 PM CDT [facility] TOTAL PROTEIN 7.7 6.0 - 8.0 g/dL 07/12/2024 12:48 PM CDT [facility] ALBUMIN 4.4 3.5 - 5.0 g/dL 07/12/2024 12:48 PM CDT [facility] A/G RATIO 1.3 1.0 - 2.2 07/12/2024 12:48 PM CDT [facility] CALCIUM 9.6 8.7 - 10.5 mg/dL 07/12/2024 12:48 PM CDT [facility] T BILI 0.4 0.2 - 1.2 mg/dL 07/12/2024 12:48 PM CDT [facility] SGOT (AST) 31 <43 U/L 07/12/2024 12:48 PM CDT [facility] SGPT (ALT) 24 <56 U/L 07/12/2024 12:48 PM CDT [facility] ALKALINE PHOSPHATASE 83 40 - 150 U/L 07/12/2024 12:48 PM CDT [facility] GFR, ESTIMATED >60 >=60 07/12/2024 12:48 PM CDT [facility] Comment: Creatinine Clearance is the preferred criteria for selecting drug dose adjustments in renally impaired patients. The GFR is provided as additional pertinent clinical information. GFR is reported in mL/min/1.73 sq m. Calculation based on the Chronic Kidney Disease Epidemiology Collaboration (CKD- EPI) equation refit without adjustment for race. GFR, EST. >60 >=60 025 12:48 PM CDT [facility] GFR, EST. NONAFRICAN >60 >=60 07/12/2024 12:48 PM CDT [facility] Blood Venipuncture / Unknown 07/12/2024 11:55 AM CDT 07/12/2024 12:18 PM CDT us Siobhan Jimenez MD CHEMISTRY ORDERABLES Final Re sult [facility] [address] [place] [address] * ELENITA SCREENING BILATERAL DIGITAL W CAD [...] to exams dated: 06/15/2019, 02/20/2018, and 12/05/2016 [facility]. BREAST TISSUE:The tissue of both breasts is [...] next screening exam. Electronically signed by: Yoselyn mata/natalie:01/09/2023 17:19:33 Outer Diameter Grinder Tool(s): RT Aundrea(R)(M), [facility] letter sent: Normal Exam Reading location: [facility] BI-RADS: 1 Negative Procedure Note Yoselyn [...] to exams dated: 06/15/2019, 02/20/2018, and 12/05/2016 [facility]. BREAST TISSUE:The tissue of both breasts is [...] next screening exam. Electronically signed by: Yoselyn mata/natalie:01/09/2023 17:19:33 Outer Diameter Grinder Tool(s): RT Aundrea(R)(M), [facility] letter sent: Normal Exam Reading location: [facility] BI-RADS: 1 Negative us Adam Wiggins MD IMG MAMMO ORDERABLES Final Re sult * [facility] BONE DENSITOMETRY AXIAL SKELETON (02/20/2018 3:21 PM [...] Narrative 02/20/2018 4:08 PM CDT EXAM DESCRIPTION: [facility] BONE DENSITOMETRY AXIAL SKELETON REASON FOR STUDY: 67 y/o year old F with given history of screening. Box Covering Machine Operator/Model: Sparktrend (S/N [id number]) CLINICAL INFORMATION: Current height: 60.0 inches Maximum [...] Chandler Quiroz M.D. VIC: VIC Report ID: [id number] Reading Location: [place] [address] Procedure Note Chandler Quiroz MD - 02/20/2018 EXAM DESCRIPTION: [facility] BONE DENSITOMETRY AXIAL SKELETON REASON FOR STUDY: 67 y/o year old F with given history of screening. Box Covering Machine Operator/Model: Sparktrend (S/N [id number]) CLINICAL INFORMATION: Current height: 60.0 inches Maximum [...] Chandler Quiroz M.D. VIC: VIC Report ID: [id number] [facility]PRESSION: Normal, noting low normal L1 through [...] to Prevention and Treatment of Osteoporosis (http://www.nof.org/professionals/clinical-guidelines) Adam Wiggins MD IMG DEXA ORDERABLES Final Res ult * HM COLONOSCOPY (04/24/2011) us Sven Arana DO PROCEDURE/MINOR SURGICAL ORDERA BLES Final Result from Last 3 Months or Most Recently Relevant to Health Maintenance Insurance MEDICARE [facility] Care Teams Scalper Operator Relationship Specialty Start Date End Date Adam Wiggins MD [address] [place] [address] PCP - General 06/08/15 David Henriquez MD [address] [address] Consulting Physician Colon and Rectal Surgery 10/09/23 Stas Malin MD [address] [place] [address] Consulting Physician Medical Oncology 06/05/23
--- OUTSIDE RECORDS SUMMARY | 2024-09-17 06:03 | XMS_ITS | Encounter Summary ---
Author Organization [facility] Address 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 Gender Identity Not on file Sexual Orientation [...] SUBSTITUTES aware of controversy , given by phone banker--pt wants to continue 244.9-HYPOTHYROIDISM on med, no [...] diarrhea FAMILY HISTORY: FATHER: The father is .[place], [place], [place] MOTHER: The mother is [...] med, check lab LAB ORDERS: Order number: [id number] Test Ordered: MAMMOGRAM BI-LATERAL (2 VIEWS) Order number: [id number] Test Ordered: BONE DENSITY (HIP & SPINE) Order number: [id number] Test Ordered: CBC W/ DIFFERENTIAL 3150 Order number: [id number] Test Ordered: COMPREHENSIVE METABOLIC PANEL & GFR 1112 Order number: [id number] Test Ordered: LIPID PANEL 1078 Order number: [id number] Test Ordered: TSH 1720 Order number: [id number] Test Ordered: VITAMIN B12 LEVEL 1719 E932.9-HORMONES [...] Dispensed, status: NEW PRESCRIPTION, 02/10/2007. SPECIALTY REFERRAL: HUMAN RESOURCES DESIGNATE HEALTH MAINTENANCE: LAST DATE COLONOSCOPY: . PREVENTIVE COUNSELING The patient was counseled regarding diet, regular sustained exercise for at least 30 minutes 3-4 times per week, routine screening interval for mammogram as recommended by the [employer] and ACOG, colorectal cancer screening, [...] Description 11/13/2024 11:20 AM CDT Office Visit [facility] [place] [address] Adam Wiggins MD [address] [place] [address] documented as of this encounter Visit Diagnoses Not on filedocumented in this encounter Care Teams Master Data Analyst Relationship Specialty Start Date End Date Adam Wiggins MD PCP - General 07/21/07 documented as of this encounter
--- OUTSIDE RECORDS SUMMARY | 2024-09-17 06:03 | XMS_ITS | Encounter Summary ---
Author Organization [facility] Address [address] [place] [address] Phone Care Team Providers Care Civil Engineering Professor Name Role Phone Adam Wiggins MD Primary Care Provider David Henriquez MD Unavailable Stas Malin MD Unavailable Reason for Referral * PT/OT/ST (Routine) - Authorized Specialty Diagnoses / Procedures Referred By Irais calderon Referred To Contact Physical Therapy Diagnoses Trochanteric bursitis of right hip 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 Cristal Hunt PAC [address] [place] [address] [place] [address] Phone: tel: fax: [facility] at [address], [address] [address] Phone: tel: fax: Referral ID Status Reason Start Date Expiration Date V isits Requested Visits Authorized [id number] Authorized 06/16/2024 50 50 Scheduling Instructions UDER OPERATOR MULTIPLE Encounter Details Date Type Department Care Team (Late st Contact Info) Description 06/16/2024 Transcribe Orders [facility] [address] [place] [address] Cristal Hunt PAC [address] [place] [address] Trochanteric bursitis of right hip (Primary Dx); [...] Description 09/21/2024 2:00 PM CDT Physical [facility] at [address], [address] [phone] Cristal Hunt PAC [address] [place] [place] [address] Lin Fuller, PT [place] Discharge Disposition: Discharged to home or Selfcare 09/23/2024 9:00 AM CDT Physical Therapy [facility] at [address], [address] [phone] Cristal Hunt PAC [address] [place] [place] [address] Lin Fuller, PT [place] 10/06/2024 2:15 PM CDT [facility] [address] [facility], [place] [address] [phone] Cristal Hunt PAC [address] [place] [place] [address] Lin Fuller, PT [place] Scheduled Referrals Name Type Priority Associated Diagnoses Orde r Schedule PHYSICAL THERAPY REFERRAL Outpatient Referral Routine Trochanteric bursitis of right hip 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 Expected: 06/16/2024, Expires: 06/16/2025 documented as of this encounter Visit Diagnoses Diagnosis Trochanteric bursitis of right hip- Primary Enthesopathy of hip region 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 documented in this encounter Care Teams Civil Engineering Professor Relationship Specialty Start Date End Date Adam Wiggins MD [address] [place] [phone] PCP - General 06/08/15 David Henriquez MD [address] [address] Consulting Physician Colon and Rectal Surgery 10/09/23 Stas Malin MD [address] [place] [address] Consulting Physician Medical Oncology 06/05/23 documented as of this encounter
[2024-09-17 06:30] VITALS: BP 124/73; PULSE 78; RESP 18; TEMP 36.4; O2SAT 99
--- NOTE | 2024-09-17 06:36 | WPDHPUPDATE1 ---
History and Physical Update Update Date/Time: 09/17/24 06:36 Patient seen and examined in pre-operative holding area. No interval change in medical history or symptoms. Patient recalls previous discussion of benefits and alternatives to procedure. Continues to desire to proceed with right cubital tunnel release. Reviewed procedure, post-op expectations and risks including but not limited to bleeding, infection, injury to tendon/nerve/vessel, decreased hand function, stiffness, RSD, no change or worsening of symptoms. I discussed the possible use of assistants and their participation in the case. Patient stated understanding and signed the consent form wishing to proceed.
--- NOTE | 2024-09-17 06:37 | W.PM.PROC2 ---
Procedure Note - Detailed Date of Procedure 09/17/24 Pre-op Diagnosis Right Cubital Tunnel Syndrome Post-op Diagnosis Same Procedure Performed right CuTR Surgeon Anaid Perea MD Learning Developer samantha zaman pa-c Anesthesia MAC Description of Procedure INFORMED CONSENT:The patient was seen and examined and marked in the pre-op area.? The patient signed the consent form. PROCEDURE IN DETAIL: The patient taken back to OR on the stretcher in supine position. Time out performed with anesthesia, surgeon and staff agreeing on patient's name site and surgery to be performed SCDs were placed on the lower extremities and inflated A tourniquet was placed on {right} upper extremity and antibiotics given IV After anesthesia administered sedation I injected {7}cc 1%lido with epi and 0.5% marcaine plain at the operative site The?{right upper extremity}?was prepped and draped in sterile fashion the??{right upper extremity} was??exsanguinated with Esmarch bandage and tourniquet inflated to 250mmHg I next proceeded with making a longitudinal incision between two heads for flexor carpi ulnaris at end of {right} cubital tunnel with 15 blade scalpel.? Littler scissors were used to spread down to FCU fascia.? An incision was made in FCU fascia and ulnar nerve identified exiting cubital tunnel.? I proceeded with complete retrograde release of the cubital tunnel including 7cm proximal for the intermuscular septum.? The nerve appeared white and sclerotic. This improved slightly with epineurolysis and I was able to visualize very small vaso nervorum.? There was no subluxation on full elbow range of motion. ? I irrigated with normal saline and closure with 3-0 vicryl and 4-0 monocryl. The incision was covered with Dermabond then 4x4s, elliot, and a posterior elbow splint for patient safety, security and comfort and secured with claribel bandages after the tourniquet was let down noting the hand was warm and well perfused.? Patient awaken from anesthesia and transferred to recovery in stable condition Complications - none EBL- 1cc Disposition - home in stable conditions samantha zaman pa-c was essential for positioning, retraction, closure and dressing placement [facility] Billing Surgery - Charge Forward: Surgery Billing ([id number] for samantha)
[2024-09-17] MEDS: LACTATED RINGERS 1,000 ML 30 ML IV CONT (06:45)
--- NOTE | 2024-09-17 06:50 | P.PNAN_ITS ---
Anes - Initial Pre Proc Eval Procedure: Operation Date: 09/17/24 07:30 Proposed Procedures p Right Cubital Tunnel Release - Anaid Perea MD Date/Time: 09/17/24 06:50 Surgeon: Anaid Perea MD Pre Op Diagnosis: Right Cubital Tunnel Syndrome Patient Data Age: 74 Gender: F Height: 1.52 m Weight: 82 kg Allergies Allergy/AdvReac Type Severity Reaction Status Date / Time nickel Allergy Intermediate Rash Verified 09/17/24 06:56 Penicillins Allergy Unknown Hives Verified 09/17/24 06:56 Home Medications ?Medication ?Instructions ?Recorded ?Confirmed ?Type amlodipine 2.5 mg tablet 2.5 mg PO DAILY 07/27/24 09/07/24 History duloxetine 60 mg capsule,delayed 60 mg PO DAILY 07/27/24 09/07/24 History release fluticasone propionate 50 1 spray intranasal DAILY 07/27/24 09/07/24 History mcg/actuation nasal spray,suspension gabapentin 400 mg capsule 1,600 mg PO DAILY@0630 07/27/24 09/07/24 History levothyroxine 137 mcg tablet 137 mcg PO DAILY 07/27/24 09/07/24 History (Synthroid) montelukast 10 mg tablet 10 mg PO DAILY 07/27/24 09/07/24 History olmesartan 40 mg tablet 40 mg PO DAILY 07/27/24 09/07/24 History pravastatin 10 mg tablet 10 mg PO DAILY 07/27/24 09/07/24 History temazepam 30 mg capsule 30 mg PO HS PRN sleep 07/27/24 09/07/24 History ferrous sulfate 325 mg (65 mg 325 mg PO DAILY 08/28/24 09/07/24 History iron) tablet (FeroSul) prednisone 20 mg tablet 20 mg PO DAILY periorbital edema 09/07/24 09/07/24 Rx #14 tabs Patient hx anesthesia problems: post op nausea/vomiting Family hx anesthesia problems: none Results Review: All pre-operative results and documents have been reviewed as part of the pre- operative evaluation. [facility] Past Medical History Medical History (Updated 09/16/24 @ 15:58 by Jaycob Candelaria DO) CHUCK (obstructive sleep apnea) Hypothyroidism Hyperlipidemia Hypertension Family History Family History Father Family history of arthritis Mother Family history of coronary artery disease Social History Social History Social History: Caffeine-coffee Smoking status: Never smoker Second hand tobacco smoke exposure: Yes Alcohol intake: current Drinks per week: 3 Alcohol use details: wine Substance use: current Substance use type: marijuana Other substance usage details: edibles on occasion Living arrangements: with family Spiritual care concerns: No Anes - Eval Final PreProcedure Day of Procedure 09/17/24 06:50 Patient weight: obese Heart: regular rate and rhythm Lungs: clear to auscultation Airway: Mallampati scale class II Neurological: alert and oriented Last oral intake: >/= 8 hours ASA classification: III Emergent: no Anesthetic plan: proceed Anesthesia type and monitoring: general GIVS and standard monitoring Results Review: All pre-operative results and documents have been reviewed as part of the pre- operative evaluation. Informed Consent: The patient's anesthetic plan and its attendant risks and benefits were discussed with the patient/family/POA. Questions were solicited and answers provided to the satisfaction of the patient/family/POA.
[2024-09-17] MEDS: ceFAZolin SODIUM 2 GM/20 ML SW SYRINGE IV PUSH (07:18)
[2024-09-17] MEDS: BUPIVACAINE/EPINEPHRINE 0.5% 10 ML VIAL 3.5 ML INFILTRATE (07:30)
[2024-09-17] MEDS: LIDOCAINE 1% LOCAL INJ 20 ML VIAL 3.5 ML INFILTRATE (07:31)
[2024-09-17 07:48] VITALS: BP 107/53; PULSE 77; RESP 16; O2SAT 99
[2024-09-17 07:58] VITALS: BP 112/57; PULSE 74; RESP 16; O2SAT 97
[2024-09-17 08:08] VITALS: BP 120/58; PULSE 76; RESP 16; O2SAT 97
--- NOTE | 2024-09-17 11:12 | WPDANESPN ---
Anes - Prog Note Post-Op Date/Time: 09/17/24 11:12 Cardiovascular status: normal Respiratory status: normal Airway patency: baseline Mental status: baseline Post-Op hydration status: normal Vital Signs: Last Vital Signs Temp 36.4 C L 09/17/24 06:30 Pulse 76 09/17/24 08:08 Resp 16 09/17/24 08:08 BP 120/58 L 09/17/24 08:08 Pulse Ox 97 09/17/24 08:08 O2 Del Method Room Air 09/17/24 08:08 Pain Score (VAS): 0 I/O: Intake & Output 09/16/24 09/17/24 09/17/24 23:59 07:59 15:59 Intake Total 400 50 Balance 400 50 Post-procedural complaints: none Patient Feedback: Patient satisfied with anesthetic care. Other Findings: Patient vital signs back to baseline. Patient denies nausea and vomiting. Patient's pain under control. Patient OK for discharge.
== END 2024-09-17 08:20 | disposition home or self-care (01) ==
PROVIDERS: PCP Internal Medicine; Visit Provider Plastic Surgery
PROC: (CPT 64718; principal; 2024-09-17 07:30)
DX: G56.21 Lesion of ulnar nerve, right upper limb (principal)
CPT/HCPCS: 64718